=== PATIENT | male | born 1990 | race Caucasian/White ===

== ENCOUNTER 2016-10-23 13:10 | Emergency (ER) | payer OTHER ==
[2016-10-23] VITALS (11 sets, daily range): BP systolic 112–142; BP diastolic 51–75; PULSE 73–96; RESP 12–20; TEMP 98.1–98.8; O2SAT 94–96
[~2016-10-23] VITALS: Ht 167.6 cm; Wt 58.6 kg
[~2016-10-23 13:10] MED LIST: AQUACAP PO; AZIT250T3 PO; CALC600T13 PO; M2 M100C PO; NADO40TA2 PO; PRED10 PO; TACR1 PO; URSO300C2 PO; ZINC100T
[2016-10-23] MEDS ORDERED: ONDANSETRON HCL 4 MG/2 ML VIAL IVP ONE (14:00)
--- NOTE | 2016-10-23 14:11 | PD ---
HPI Chief Complaint: General Weakness Time Seen by Provider: 13:40 Travel History International Travel<30 days: No Contact w/Intl Traveler<30days: No Traveled to known affect area: No History of Present Illness HPI This patient complains of nausea. Duration 3 days. Severity is moderate. He is not having any vomiting or fever or abdominal pain. He does have extensive medical history with cystic fibrosis and had a partial colectomy 3 months ago. He has a colostomy has been functioning. He has emptied it today as usual. No alleviating factors. He does grudgingly admits to some significant anxiety and stress feelings. PFSH Past Medical History Autoimmune Disease: No Cancer: No Cystic Fibrosis: Yes Diabetes: Yes (9 YEARS) Endocrine: Yes Immune Disorder: No Psychiatric: No Reproductive: No Respiratory: Yes (DBL LUNG TRANSPLANT LAST YEAR) Sickle Cell Disease: No Past Surgical History Abdominal Surgery: Yes Cardiac Surgery: No Ear Surgery: No Endocrine Surgery: Yes (INSULIN PUMP) Eye Surgery: No Genitourinary Surgery: No Gynecologic Surgery: No Oral Surgery: Yes (WISDOM TEETH X 4) Thoracic Surgery: No Other Surgery: Yes (g tube) Social History Alcohol Use: No Tobacco Use: No Substance Use: No Allergies-Medications (Allergen,Severity, Reaction): Coded Allergies: Vancomycin (Verified Adverse Reaction, Intermediate, 05/27/16) *MDRO Multi-Drug Resistant Organism (Verified Adverse Reaction, Unknown, 05/29/16) MRSA 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 (nares) Positive 05/28/16 Reported Meds & Prescriptions Reported Meds & Active Scripts Active Reported Xifaxan (Rifaximin) 550 Mg Tab 550 Mg PO DAILY Iron (Ferrous Sulfate) 50 Mg Tab 50 Mg PO DAILY Azithromycin 250 Mg Tab 250 Mg PO DAILY Zinc (Zinc Gluconate) 100 Mg Tab Prednisone 10 Mg Tab 10 Mg PO DAILY Calcium 600 Mg Tab 600 Mg PO DAILY Magnesium 100 Mg Cap 150 Mg PO DAILY Ursodiol 300 Mg Cap 300 Mg PO BID Prograf (Tacrolimus) 1 Mg Cap 1 Mg PO HS Prograf (Tacrolimus) 1 Mg Cap 2 Mg PO DAILY Review of Systems General / Constitutional: No: Fever Eyes: No: Visual changes HENT: No: Headaches Cardiovascular: Positive: Edema, No: Chest Pain or Discomfort Respiratory: No: Shortness of Breath Gastrointestinal: Positive: Nausea, No: Abdominal Pain Genitourinary: No: Dysuria Musculoskeletal: Positive: Edema, No: Pain Skin: No Rash Neurologic: No: Weakness Psychiatric: Positive: Anxiety Endocrine: No: Polydipsia Hematologic/Lymphatic: No: Easy Bruising Physical Exam Narrative GENERAL: Well-nourished, well-developed patient in no apparent distress. SKIN: Focused skin assessment reveals no rash and nodules. Skin is Warm and dry. HEAD: Atraumatic. Normocephalic. EYES: Pupils equal and round. No scleral icterus. No injection or drainage. ENT: No nasal bleeding or discharge. Mucous membranes pink and moist. NECK: Trachea midline. No JVD. CARDIOVASCULAR: Regular rate and rhythm. No murmur appreciated. RESPIRATORY: No accessory muscle use. Clear to auscultation. Breath sounds equal bilaterally. GASTROINTESTINAL: Abdomen soft, non-tender, suggesting of mild ascites. Hepatic and splenic margins not palpable. Colostomy present and functioning. Incision shows no infection or dehiscence. MUSCULOSKELETAL: No obvious deformities. No clubbing. No cyanosis. Symmetric edema the feet and ankles, chronic per patient and family. NEUROLOGICAL: Awake and alert. No obvious cranial nerve deficits. Motor grossly within normal limits. Normal speech. PSYCHIATRIC: Anxious mood and affect; insight and judgment normal. Data Data Last Documented VS Vital Signs Date Time Temp Pulse Resp B/P Pulse Ox O2 Delivery O2 Flow Rate FiO2 10/23/16 13:33 98.4 92 16 112/58 94 Orders Ondansetron Inj (Zofran Inj) (10/23/16 14:00) Influenzae A/B Antigen (10/23/16 13:56) Complete Blood Count With Diff (10/23/16 13:56) Basic Metabolic Panel (Bmp) (10/23/16 13:56) Heparin Central Flush (Heparin Central F (10/23/16 14:00) Lorazepam (Ativan) (10/23/16 14:15) Type And Screen (10/23/16 14:51) Red Blood Cells (Rbc) (10/23/16 14:51) Blood Product Administration .UPON TRANSFUSION (10/23/16 14:51) Sodium Chlor 0.9% 250 Ml Inj (Ns 250 Ml (10/23/16 15:00) Furosemide Inj (Lasix Inj) (10/23/16 15:00) Labs Laboratory Tests Test 10/23/16 14:11 White Blood Count 3.3 TH/MM3 Red Blood Count 2.64 MIL/MM3 Hemoglobin 6.8 GM/DL Hematocrit 21.7 % Mean Corpuscular Volume 82.2 FL Mean Corpuscular Hemoglobin 25.8 PG Mean Corpuscular Hemoglobin 31.4 % Concent Red Cell Distribution Width 18.8 % Platelet Count 81 TH/MM3 Mean Platelet Volume 7.4 FL Neutrophils (%) (Auto) 72.5 % Lymphocytes (%) (Auto) 14.1 % Monocytes (%) (Auto) 9.3 % Eosinophils (%) (Auto) 3.7 % Basophils (%) (Auto) 0.4 % Neutrophils # (Auto) 2.4 TH/MM3 Lymphocytes # (Auto) 0.5 TH/MM3 Monocytes # (Auto) 0.3 TH/MM3 Eosinophils # (Auto) 0.1 TH/MM3 Basophils # (Auto) 0.0 TH/MM3 CBC Comment AUTO DIFF Differential Comment AUTO DIFF CONFIRMED Ovalocytes 1+ Keratocytes OCC Sodium Level 143 MEQ/L Potassium Level 4.6 MEQ/L Chloride Level 112 MEQ/L Carbon Dioxide Level 23.2 MEQ/L Anion Gap 8 MEQ/L Blood Urea Nitrogen 22 MG/DL Creatinine 1.90 MG/DL Estimat Glomerular Filtration 43 ML/MIN Rate Random Glucose 117 MG/DL Calcium Level 8.0 MG/DL MDM Medical Decision Making Medical Screen Exam Complete: Yes Emergency Medical Condition: Yes Medical Record Reviewed: Yes Differential Diagnosis Ileus, colitis, obstruction, anxiety Narrative Course I have reviewed the patient's electronic medical record. Reviewed his extensive hospitalization from May 2016 Port is accessed I gave him IV Zofran Gave him a dose of Ativan for anxiety CBC shows pancytopenia which is chronic. His father reports that his baseline hemoglobin since the colectomy 3 months ago has been 7.2. He is discussing with his sons specialist at [place] regarding recommendations for admission/ transfusion etc. No active bleeding. Metabolic profile shows some renal insufficiency with creatinine 1.9. That is his baseline creatinine after colectomy Reviewed his situation at length with his parents at bedside. They are a physician child and youth program assistant and nurse and have good medical knowledge. I don't have any clinical suspicion of obstruction. He has soft benign abdomen with no vomiting or tenderness. His colostomy has been functioning normally. His father spoke with the patient's guest experience captain at [facility]. He does not think admission is warranted. The patient does not want to stay. He recommended 2 units of packed red cell transfusion prior to discharge from the ER. Multiple physicians of the transplant team will be seeing him in 6 days' time at the [facility]. Patient is agreeable So he will get a unit of blood transfusion followed by 20mg IV Lasix followed by a second unit of blood. Diagnosis Primary Impression: Nausea alone Additional Impressions: Symptomatic anemia Cystic fibrosis Additional Instructions: Follow up with your transplant team as scheduled on 29 October Med/Other Pt SpecificInfo: Other Disposition: 01 DISCHARGE HOME Condition: Stable Yasir Mg MD October 23, 2016 14:10
[2016-10-23] MEDS ORDERED: LORazepam 0.5 MG TAB PO ONE (14:15)
[2016-10-23 14:21] LABS: AUTOMATED NEUTROPHIL # 2.4 TH/MM3 (1.8-7.7); BASOPHIL % 0.4 % (0.0-2.0); EOSINOPHIL # 0.1 TH/MM3 (0-0.4); EOSINOPHIL % 3.7 % (0.0-4.0); HEMATOCRIT 21.7 % (39.0-51.0); LYMPH % 14.1 % (9.0-44.0); LYMPHOCYTE # 0.5 TH/MM3 (1.0-4.8); MEAN CELL VOLUME 82.2 FL (80.0-100.0); MEAN CORPUSCULAR HEMOGLOBIN 25.8 PG (27.0-34.0); MEAN CORPUSCULAR HGB CONC 31.4 % (32.0-36.0); MONO % 9.3 % (0.0-8.0); NEUT % 72.5 % (16.0-70.0); PLATELET COUNT 81 TH/MM3 (150-450); RED BLOOD COUNT 2.64 MIL/MM3 (4.50-5.90); RED CELL DISTRIBUTION WIDTH 18.8 % (11.6-17.2); WHITE BLOOD COUNT 3.3 TH/MM3 (4.0-11.0)
[2016-10-23 14:23] LABS: HEMO FLAGS AUTO DIFF
[2016-10-23] MEDS ORDERED: XIFA550T4 PO (14:26)
[2016-10-23] MEDS ORDERED: FERR1TAB58 PO (14:26)
[2016-10-23 14:29] LABS: POTASSIUM 4.6 MEQ/L (3.5-5.1)
[2016-10-23 14:32] LABS: BICARBONATE 23.2 MEQ/L (21.0-32.0)
[2016-10-23 14:48] LABS: KERATOCYTES OCC (NORMAL); OVALOCYTES 1+ (NORMAL); SCAN/DIFF AUTO DIFF CONFIRMED
[2016-10-23] MEDS ORDERED: SODIUM CHLOR 0.9% 250 ML INJ 250 ML IV ONE (15:00)
[2016-10-23] MEDS ORDERED: FUROSEMIDE 20 MG/2 ML VIAL IV PUSH ONE (15:00)
[2016-10-24] MEDS ORDERED: diphenhydrAMINE HCL 50 MG/ML VIAL IV PUSH ONE
[2016-10-24 00:05] VITALS: BP 141/63; PULSE 86; RESP 20; TEMP 98.1; O2SAT 95
[2016-10-24 00:20] VITALS: BP 134/62; PULSE 86; RESP 20; TEMP 98.1; O2SAT 95
[2016-10-24 01:22] VITALS: BP 153/76; PULSE 91; RESP 20; TEMP 98.7; O2SAT 94
== END 2016-10-24 02:40 | disposition home or self-care (01) ==
LOC: PHED 13:10
DX: R11.0 Nausea (principal); D64.9 Anemia, unspecified; E84.9 Cystic fibrosis, unspecified
CPT/HCPCS: 36430; 80048; 85025; 86850; 86900; 86901; 86920; 87804; 96361; 96374; 96375; 99283; J1200; J1642; J1940; J2405; J7050; P9016

== ENCOUNTER → 2017-02-27 | Outpatient (CLI) | payer OTHER ==
[~2017-02-27] MED LIST changes: -AQUACAP PO; +CALC600T10 PO; +FERR1TAB58 PO; -NADO40TA2 PO; +PRED1SUS6 LEFT EYE; +VIGA0.5D LEFT EYE; +XIFA550T4 PO; +ZINC100T3 PO
== END ==
LOC: TMNT 11:00
PROVIDERS: ATTEND Internal Medicine Interventional Cardiology
DX: K74.60 Unspecified cirrhosis of liver (principal); Z71.3 Dietary counseling and surveillance; Z94.2 Lung transplant status
CPT/HCPCS: 97802

== ENCOUNTER 2017-03-20 17:16 | Emergency (ER) | payer OTHER ==
[~2017-03-20 17:16] MED LIST changes: -CALC600T13 PO; -FERR1TAB58 PO; -M2 M100C PO; -ZINC100T
[2017-03-20 17:19] VITALS: BP 132/76; PULSE 115; RESP 22; TEMP 98.6; O2SAT 94
[2017-03-20] MEDS ORDERED: SODIUM CHLORIDE 0.9% FLUSH 10 ML FLUSH IV FLUSH PRN (17:30)
[2017-03-20 17:34] VITALS: BP 152/74; PULSE 111; RESP 26; O2SAT 94
[2017-03-20 17:40] VITALS: BP 152/74; PULSE 114; RESP 28; TEMP 98.8; O2SAT 94
--- NOTE | 2017-03-20 17:54 | PD ---
HPI . Weakness Chief Complaint: General Weakness Time Seen by Provider: 17:29 Travel History International Travel<30 days: No Contact w/Intl Traveler<30days: No Traveled to known affect area: No History of Present Illness HPI This is a 26-year-old patient with a history of cystic fibrosis who is status post bilateral lung transplants who presents to us today with the chief complaint of weakness and fatigue. He has a history of anemia requiring transfusions. He states that his symptoms today are compatible with that. He has not experienced any recent known blood loss. He has had previous problems with GI blood loss but has not seen any lately. Patient also reports that he's been tachycardic today. Heart rate has been around 130. He reports a temperature at home of 100 today. No modifying factors. PFSH Past Medical History Anemia: Yes Autoimmune Disease: No Cancer: No Cystic Fibrosis: Yes Diabetes: Yes Patient Takes Glucophage: No (insulin pump ) Diminished Hearing: No Endocrine: Yes Immune Disorder: No Medical other: Yes (blood tranfusions ) Psychiatric: No Reproductive: No Respiratory: Yes (DBL LUNG TRANSPLANT LAST YEAR) Immunizations Current: No Pneumonia: Yes Sickle Cell Disease: No Tetanus Vaccination: < 5 Years Influenza Vaccination: Yes Past Surgical History Abdominal Surgery: Yes Cardiac Surgery: No Ear Surgery: No Endocrine Surgery: Yes (INSULIN PUMP) Eye Surgery: No Genitourinary Surgery: No Gynecologic Surgery: No Oral Surgery: Yes (WISDOM TEETH X 4) Thoracic Surgery: No Other Surgery: Yes (BILATERAL LUNG TRANSPLANT 2014) Social History Alcohol Use: No Tobacco Use: No Substance Use: No Allergies-Medications (Allergen,Severity, Reaction): Coded Allergies: vancomycin (Verified Adverse Reaction, Intermediate, 03/08/17) *MDRO Multi-Drug Resistant Organism (Verified Adverse Reaction, Unknown, ) MRSA PCR Screen (nares) Positive 05/28/16 Reported Meds & Prescriptions Reported Meds & Active Scripts Active Reported Zinc Gluconate 100 Mg Tab 100 Mg PO DAILY Calcium + D3 (Calcium Carbonate-Cholecalciferol) 600-200 Mg-Unit Tab 1 Tab PO DAILY Xifaxan (Rifaximin) 550 Mg Tab 550 Mg PO DAILY Prednisone 10 Mg Tab 10 Mg PO DAILY Ursodiol 300 Mg Cap 300 Mg PO BID Prograf (Tacrolimus) 1 Mg Cap 1 Mg PO HS Prograf (Tacrolimus) 1 Mg Cap 2 Mg PO DAILY Review of Systems Except as stated in HPI: all other systems reviewed are Neg General / Constitutional: Positive: Fever Cardiovascular: Positive: Other (tachycardia), No: Chest Pain or Discomfort Respiratory: No: Shortness of Breath Gastrointestinal: Positive: Diarrhea (diarrhea a few days ago), No: Nausea, Vomiting, Abdominal Pain Neurologic: Positive: Weakness Physical Exam Narrative GENERAL: Slightly built, chronically ill-appearing young man. SKIN: warm/dry. Pale. HEAD: Normocephalic. Atraumatic. EYES: Pupils equal and round. No scleral icterus. No injection or drainage. ENT: No nasal bleeding or discharge. Mucous membranes pink and moist. NECK: Trachea midline. Full range of motion without pain.. CARDIOVASCULAR: Sinus tachycardia. He does have a systolic murmur. RESPIRATORY: No accessory muscle use. Clear to auscultation. Breath sounds equal bilaterally. GASTROINTESTINAL: Ascites. Abdomen soft. Nontender. Bowel sounds present. MUSCULOSKELETAL: No obvious deformities. NEUROLOGICAL: Awake and alert. No obvious cranial nerve deficits. Motor grossly within normal limits. Normal speech. PSYCHIATRIC: Appropriate mood and affect; insight and judgment normal. Data Data Last Documented VS Vital Signs Date Time Temp Pulse Resp B/P (MAP) Pulse Ox O2 Delivery O2 Flow Rate FiO2 03/20/17 17:40 98.8 114 28 152/74 (100) 94 Room Air Orders Orders Complete Blood Count With Diff (03/20/17 17:28) Comprehensive Metabolic Panel (03/20/17 17:28) Lactic Acid (03/20/17 17:28) Prothrombin Time / Inr (Pt) (03/20/17:28) Act Partial Throm Time (Ptt) (03/20/17 17:28) Urinalysis - C+S If Indicated (03/20/17 17:28) Iv Access Insert/Monitor (03/20/17 17:28) Ecg Monitoring (03/20/17 17:28) Oximetry (03/20/17 17:28) Sodium Chloride 0.9% Flush (Ns Flush) (03/20/17 17:30) Electrocardiogram (03/20/17 17:28) Chest, Single Ap (03/20/17 17:28) Albumin (03/20/17 17:28) Ammonia (03/20/17 17:28) Type And Screen (03/20/17 17:28) Blood Culture (03/20/17 17:43) Sodium Chlor 0.9% 1000 Ml Inj (Ns 1000 M (03/20/17 18:00) Radiology Film Requests (03/20/17 ) Labs Laboratory Tests Test 03/20/17 18:10 03/20/17 18:25 [facility] Medical Decision Making Medical Screen Exam Complete: Yes Emergency Medical Condition: Yes Medical Record Reviewed: Yes (in addition to CHF, the patient has a history of diabetes and renal insufficiency.) Differential Diagnosis Differential diagnosis of weakness includes but is not limited to infection, CVA , electrolyte disturbance, renal failure, hypoglycemia, UTI, ACS, acute blood loss Narrative Course This patient is status post bilateral lung transplants and is on immunosuppression. He also has a history of previous GI bleeds, a history of anemia requiring blood transfusions, and a history of liver insufficiency. Laboratory evaluation is pending. He is followed at the [facility] in [place]. Depending on the results of his blood work, he may be discharged from here to go to [place]. His step-dad is one of the PAs here in the emergency department. He will assist the with the patient's disposition. Care is being turned over to the oncoming provider at 7 PM. [facility] Point of Care Internal Pos. & Neg. Controls: Passed Fecal Specimen Occult Blood: Positive Diagnosis Primary Impression: GI bleed Qualified Codes: K92.2 - Gastrointestinal hemorrhage, unspecified Additional Impression: Cystic fibrosis Pattie Cleaning MD Mar 20, 2017 17:54
[2017-03-20] MEDS ORDERED: SODIUM CHLOR 0.9% 1000 ML INJ 1,000 ML IV ONE (18:00)
--- NOTE | 2017-03-20 18:04 | RADRPT ---
EXAM DATE/TIME: 03/20/2017 18:01 [facility] COMPARISON: CHEST PA & LAT, May 31, 2016, 8:42. INDICATIONS : Weakness today. MEDICAL HISTORY : Cystic fibrosis, diabetes SURGICAL HISTORY : Bilateral lung transplant ENCOUNTER: Initial ACUITY: 1 day PAIN SCORE: 0/10 LOCATION: Bilateral chest FINDINGS: Bilateral basilar consolidation with small right and moderate left pleural effusions are present. No pneumothorax. Heart size within normal limits. There is a right internal jugular [id number] catheter with tip in the right atrium. CONCLUSION: Left greater than right bibasilar consolidation and pleural effusions. Sushant Riggins MD on March 20, 2017 at 18:01 Board Certified Radiologist. This report was verified electronically.
[2017-03-20 18:48] LABS: AUTOMATED NEUTROPHIL # 1.8 TH/MM3 (1.8-7.7); BASOPHIL % 0.3 % (0.0-2.0); EOSINOPHIL % 0.8 % (0.0-4.0); HEMATOCRIT 21.3 % (39.0-51.0); LYMPH % 13.4 % (9.0-44.0); LYMPHOCYTE # 0.3 TH/MM3 (1.0-4.8); MEAN CELL VOLUME 83.3 FL (80.0-100.0); MEAN CORPUSCULAR HEMOGLOBIN 27.5 PG (27.0-34.0); MEAN CORPUSCULAR HGB CONC 33.1 % (32.0-36.0); MONO % 9.7 % (0.0-8.0); NEUT % 75.8 % (16.0-70.0); PLATELET COUNT 58 TH/MM3 (150-450); RED BLOOD COUNT 2.56 MIL/MM3 (4.50-5.90); RED CELL DISTRIBUTION WIDTH 15.7 % (11.6-17.2); WHITE BLOOD COUNT 2.3 TH/MM3 (4.0-11.0)
[2017-03-20 18:51] LABS: HEMO FLAGS AUTO DIFF
[2017-03-20 19:09] LABS: ANION GAP 6 MEQ/L (5-15); AST (GOT) 41 U/L (15-37); BLOOD UREA NITROGEN 12 MG/DL (7-18); CHLORIDE 98 MEQ/L (98-107); GLOMERULAR FILTRATION RATE 90 ML/MIN (>89); POTASSIUM 3.7 MEQ/L (3.5-5.1); SODIUM (NA) 130 MEQ/L (136-145)
[2017-03-20 19:10] LABS: ALT (GPT) 36 U/L (12-78)
[2017-03-20 19:13] LABS: ALKALINE PHOSPHATASE 373 U/L (45-117); TOTAL BILIRUBIN ADULT 2.7 MG/DL (0.2-1.0)
[2017-03-20 19:15] LABS: APTT (PATIENT) 31.1 SEC (24.3-30.1); INTERNATIONAL NORMALIZED RATIO 1.4 RATIO; PROTHROMBIN TIME - PATIENT 15.4 SEC (9.8-11.6)
--- NOTE | 2017-03-20 19:33 | PD ---
Data Data Last Documented VS Vital Signs Date Time Temp Pulse Resp B/P (MAP) Pulse Ox O2 Delivery O2 Flow Rate FiO2 03/20/17 23:00 03/20/17 21:43 122 26 96 Room Air 03/20/17 19:45 97.9 Orders Orders Complete Blood Count With Diff (03/20/17 17:28) Comprehensive Metabolic Panel (03/20/17 17:28) Lactic Acid (03/20/17 17:28) Prothrombin Time / Inr (Pt) (03/20/17 17:28) Act Partial Throm Time (Ptt) (03/20/17 17:28) Iv Access Insert/Monitor (03/20/17 17:28) Ecg Monitoring (03/20/17 17:28) Oximetry (03/20/17 17:28) Sodium Chloride 0.9% Flush (Ns Flush) (03/20/17 17:30) Electrocardiogram (03/20/17 17:28) Chest, Single Ap (03/20/17 17:28) Albumin (03/20/17 17:28) Ammonia (03/20/17 17:28) Type And Screen (03/20/17 17:28) Blood Culture (03/20/17 17:43) Sodium Chlor 0.9% 1000 Ml Inj (Ns 1000 M (03/20/17 18:00) Radiology Film Requests (03/20/17 ) Pantoprazole Inj (Protonix Inj) (03/20/17 22:00) Heparin Central Flush (Heparin Central F (03/20/17 22:15) Labs Laboratory Tests Test 03/20/17 18:10 03/20/17 18:25 White Blood Count 2.3 TH/MM3 Red Blood Count 2.56 MIL/MM3 Hemoglobin 7.1 GM/DL Hematocrit 21.3 % Mean Corpuscular Volume 83.3 FL Mean Corpuscular Hemoglobin 27.5 PG Mean Corpuscular Hemoglobin Concent 33.1 % Red Cell Distribution Width 15.7 % Platelet Count 58 TH/MM3 Mean Platelet Volume 9.7 FL Neutrophils (%) (Auto) 75.8 % Lymphocytes (%) (Auto) 13.4 % Monocytes (%) (Auto) 9.7 % Eosinophils (%) (Auto) 0.8 % Basophils (%) (Auto) 0.3 % Neutrophils # (Auto) 1.8 TH/MM3 Lymphocytes # (Auto) 0.3 TH/MM3 Monocytes # (Auto) 0.2 TH/MM3 Eosinophils # (Auto) 0.0 TH/MM3 Basophils # (Auto) 0.0 TH/MM3 CBC Comment AUTO DIFF Differential Comment AUTO DIFF CONFIRMED Platelet Estimate LOW Platelet Morphology Comment NORMAL Ovalocytes 1+ Prothrombin Time 15.4 SEC Prothromb Time International Ratio 1.4 RATIO Activated Partial Thromboplast Time 31.1 SEC Blood Urea Nitrogen 12 MG/DL Creatinine 1.01 MG/DL Random Glucose 380 MG/DL Total Protein 5.2 GM/DL Albumin 1.7 GM/DL Calcium Level 7.5 MG/DL Alkaline Phosphatase 373 U/L Aspartate Amino Transf (AST/SGOT) 41 U/L Alanine Aminotransferase (ALT/SGPT) 36 U/L Total Bilirubin 2.7 MG/DL Sodium Level 130 MEQ/L Potassium Level 3.7 MEQ/L Chloride Level 98 MEQ/L Carbon Dioxide Level 26.0 MEQ/L Anion Gap 6 MEQ/L Estimat Glomerular Filtration Rate 90 ML/MIN Lactic Acid Level 1.2 mmol/L Ammonia 56 MCMOL/L [facility] Medical Record Reviewed: Yes Supervised Visit with DELMI: No Interpretation(s) Last Impressions Chest X-Ray 03/20/17 6563 Signed Impressions: Service Date/Time: Monday, March 20, 2017 18:01 - CONCLUSION: Left greater than right bibasilar consolidation and pleural effusions. Sushant Riggins MD Narrative Course During the course of the patients emergency department visit, the patients history, examination, and differential diagnosis were reviewed with the patient. The patient had IV access obtained and blood work sent for analysis. The patient's case was checked out to me by at the conclusion of her shift. Please see her complete history and physical. The patient's case is also managed by Gordon, the physician anesthetic assistant who is most familiar with this patient's care as this is his stepson. According to Gordon the patient is currently on the liver transplant list at the [facility]. He reported to me that the patient does require admission, the patient will require transfer. He reports that he does not want the patient to be transferred by ambulance. He prefers to drive the patient himself. The patient was initially provided normal saline 1 L IV fluid bolus. The patient was given Protonix 40 mg IV. The patients laboratory studies were reviewed and remarkable for a white count of 2.3, hemoglobin 7.1 which is compared to his last hemoglobin at this facility of 0.5 on January 12, 2017, platelets are 58 which is similar to prior levels of thrombocytopenia, neutrophils are 75.8, monocytes 9.7, CMP is remarkable for a sodium of 1:30, glucose 380, calcium 7.5, total bilirubin 2.7, AST 41, alkaline phosphatase 373, ammonia level is 56 which is also similar to his prior levels given his history of liver disease. His lactic acid is 1.2. PT 15.4, INR 1.4, PTT 31.1 Radiology studies were reviewed and remarkable for a chest x-ray that shows a left greater than right bibasilar consolidation and pleural effusions. The patient according to Gordon has chronic persistent bilateral lower infiltrates. The patient denies having any increased cough or congestion. A call was placed out to the [facility] regarding this patient's case. Gordon spoke to the patient's physician at that facility, . He did agree that the patient should be seen at their facility. A lengthy discussion was had between francheska luna and regarding how to transfer the patient. Tesfaye explained that he would like to take the patient by private vehicle. The physician at the [facility] was agreeable with the patient being discharged from this facility to be transferred by private vehicle to that facility for continued evaluation and treatment after all the laboratory studies and current physical findings and I will signs were reviewed with his physician as the patient at this point does appear to be stable given his comorbid medical conditions. The patient will be discharged for transport by his caregiver to the [facility]. Diagnosis Primary Impression: GI bleed Qualified Codes: K92.2 - Gastrointestinal hemorrhage, unspecified Additional Impressions: Cystic fibrosis Chronic liver disease Thrombocytopenia Referrals: Primary Care Physician 1 day Patient Instructions: General Instructions Med/Other Pt SpecificInfo: No Change to Meds Disposition: 70 TRANSFER TO OTHER FACILITY (To [facility]) Condition: Stable Karla Mathew MD Mar 20, 2017 19:33
[2017-03-20 19:34] LABS: OVALOCYTES 1+ (NORMAL); PLATELET ESTIMATE SMEAR LOW (NORMAL); PLATELET MORPHOLOGY NORMAL (NORMAL); SCAN/DIFF AUTO DIFF CONFIRMED
[2017-03-20 19:45] VITALS: BP 130/61; PULSE 113; RESP 18; TEMP 97.9; O2SAT 94
[2017-03-20 21:43] VITALS: BP 139/67; PULSE 122; RESP 26; O2SAT 96
[2017-03-20] MEDS ORDERED: PANTOPRAZOLE SODIUM 40 MG VIAL IV PUSH ONE (22:00)
--- NOTE | 2017-03-21 07:44 | EKG ---
Date Performed: 03/20/2017 Time Performed: 18:49:43 PTAGE: 26 years EKG: SINUS TACHYCARDIA ABNORMAL RHYTHM ECG NO PREVIOUS TRACING DOCTOR: María Macdonald Interpretating Date/Time 03/21/2017 07:42:22
== END 2017-03-20 23:53 | disposition short-term general hospital (02) ==
LOC: NEPC 17:16
DX: K92.2 Gastrointestinal hemorrhage, unspecified (principal); E84.9 Cystic fibrosis, unspecified; K76.89 Other specified diseases of liver; D69.6 Thrombocytopenia, unspecified; R00.0 Tachycardia, unspecified; R01.1 Cardiac murmur, unspecified; R18.8 Other ascites; E11.9 Type 2 diabetes mellitus without complications; I50.9 Heart failure, unspecified
CPT/HCPCS: 71010; 80053; 82140; 83605; 85025; 85610; 85730; 86850; 86900; 86901; 87040; 93005; 96361; 96374; 99285; C9113; J1642; J7030

== ENCOUNTER 2017-07-14 05:19 | Emergency (ER) | payer OTHER ==
[2017-07-14] MEDS ORDERED: SODIUM CHLORIDE 0.9% FLUSH 10 ML FLUSH IV FLUSH (05:30)
[2017-07-14] MEDS: LORazepam 2 MG/ML VIAL IV PUSH (05:43)
[2017-07-14 05:52] LABS: AUTOMATED NEUTROPHIL # 3.2 TH/MM3 (1.8-7.7); BASOPHIL % 0.5 % (0.0-2.0); EOSINOPHIL % 1.1 % (0.0-4.0); HEMATOCRIT 22.9 % (39.0-51.0); HEMOGLOBIN 7.4 GM/DL (13.0-17.0); LYMPH % 12.7 % (9.0-44.0); LYMPHOCYTE # 0.5 TH/MM3 (1.0-4.8); MEAN CELL VOLUME 87.1 FL (80.0-100.0); MEAN CORPUSCULAR HEMOGLOBIN 28.1 PG (27.0-34.0); MEAN CORPUSCULAR HGB CONC 32.3 % (32.0-36.0); MONO % 10.9 % (0.0-8.0); MONOCYTE # 0.5 TH/MM3 (0-0.9); NEUT % 74.8 % (16.0-70.0); PLATELET COUNT 76 TH/MM3 (150-450); RED BLOOD COUNT 2.63 MIL/MM3 (4.50-5.90); RED CELL DISTRIBUTION WIDTH 16.8 % (11.6-17.2); WHITE BLOOD COUNT 4.2 TH/MM3 (4.0-11.0)
[2017-07-14 05:59] LABS: HEMO FLAGS AUTO DIFF
[2017-07-14 06:01] LABS: AMMONIA 107 MCMOL/L (11-32)
[2017-07-14 06:03] LABS: ALBUMIN 1.4 GM/DL (3.4-5.0); ALT (GPT) 30 U/L (12-78); ANION GAP 7 MEQ/L (5-15); AST (GOT) 35 U/L (15-37); BLOOD UREA NITROGEN 39 MG/DL (7-18); CALCIUM 7.2 MG/DL (8.5-10.1); CHLORIDE 102 MEQ/L (98-107); CREATININE 2.18 MG/DL (0.60-1.30); GLOMERULAR FILTRATION RATE 37 ML/MIN (>89); GLUCOSE,RANDOM 142 MG/DL (74-106); POTASSIUM 4.8 MEQ/L (3.5-5.1); SODIUM (NA) 136 MEQ/L (136-145)
[2017-07-14 06:05] LABS: ALKALINE PHOSPHATASE 364 U/L (45-117); CALCIUM-PROTEIN CORRECTED 8.1 MG/DL (8.5-10.1); TOTAL BILIRUBIN ADULT 1.4 MG/DL (0.2-1.0); TOTAL PROTEIN 5.4 GM/DL (6.4-8.2)
[2017-07-14] MEDS: FUROSEMIDE 20 MG/2 ML VIAL IV PUSH (06:41)
[2017-07-14 06:45] LABS: BACTERIA, URINE RARE /hpf; BILIRUBIN, URINE NEG (NEG); BLOOD, URINE NEG (NEG); GLUCOSE,URINE NEG (NEG); KETONE, URINE TRACE mg/dL (NEG); MUCUS URINE FEW /lpf (OCC); NITRITE,URINE NEG (NEG); URINE COLOR YELLOW (YELLW/STRAW); URINE LEUKOCYTE ESTERASE NEG (NEG)
[2017-07-14] MEDS: RESP: LIDOCAINE HCL 4% PF 5 ML NEB NEB (06:45)
[2017-07-14 06:46] LABS: COMMENT (UR) CATH-CULTURE IND; CULTURE IF INDICATED CATH CULTURE IND
[2017-07-14 07:08] LABS: PLATELET ESTIMATE SMEAR LOW (NORMAL); PLATELET MORPHOLOGY NORMAL (NORMAL); SCAN/DIFF AUTO DIFF CONFIRMED
[2017-07-14 07:09] LABS: ACANTHOCYTES OCC (NORMAL); OVALOCYTES 1+ (NORMAL)
[2017-07-14 09:17] LABS: APTT (PATIENT) 23.8 SEC (24.3-30.1); INTERNATIONAL NORMALIZED RATIO 1.4 RATIO; PROTHROMBIN TIME - PATIENT 14.2 SEC (9.8-11.6)
[2017-07-14] MEDS: LACTULOSE SYRUP 20 GM/30 ML CUP NG (09:45)
== END 2017-07-14 13:49 | disposition short-term general hospital (02) ==
LOC: NEPE 05:19 → NEDA 06:36 → NEPE 13:49
DX: K72.90 Hepatic failure, unspecified without coma (principal); R41.82 Altered mental status, unspecified; R11.2 Nausea with vomiting, unspecified; I51.7 Cardiomegaly; J90 Pleural effusion, not elsewhere classified; E84.9 Cystic fibrosis, unspecified; K74.60 Unspecified cirrhosis of liver; D64.9 Anemia, unspecified; Z94.2 Lung transplant status
CPT/HCPCS: 71045; 80053; 81001; 82140; 83605; 85025; 85610; 85730; 87040; 87086; 94664; 96374; 96375; 99285-25

== ENCOUNTER 2017-09-01 08:38 | Inpatient (IN) | payer OTHER ==
[2017-09-01] VITALS (7 sets, daily range): BP systolic 123–135; BP diastolic 56–87; PULSE 91–109; RESP 18–23; TEMP 97.3–98.7; O2SAT 94–99
[~2017-09-01] VITALS: Ht 170.2 cm; Wt 65.1 kg
[~2017-09-01 08:38] MED LIST changes: -AZIT250T3 PO; -CALC600T10 PO; +CREON24 PO; +FURO40TA PO; +LEXA5TAB PO; +MYCO500 PO; +NOVOLOGP2 SQ; +PANC3600 PO; -PRED1SUS6 LEFT EYE; +PROT40TA PO; -TACR1 PO; -VIGA0.5D LEFT EYE; +VITA500012 PO
[2017-09-01] MEDS ORDERED: LACT10SO PO (08:47)
[2017-09-01] MEDS ORDERED: ONDANSETRON HCL 4 MG/2 ML VIAL IVP ONE (09:00)
[2017-09-01] MEDS ORDERED: SODIUM CHLOR 0.9% 1000 ML INJ 1,000 ML IV SCH (09:00)
[2017-09-01] MEDS ORDERED: SODIUM CHLORIDE 0.9% FLUSH 10 ML FLUSH IV FLUSH PRN ×2 (09:00→12:00)
[2017-09-01] MEDS ORDERED: HYDROmorphone HCL PF 1 MG/ML VIAL IVS ONE (09:00)
[2017-09-01] MEDS ORDERED: HYDROmorphone HCL PF 0.5 MG/0.5 ML SYRINGE ONE (09:01)
--- NOTE | 2017-09-01 09:17 | PD ---
HPI Chief Complaint: Abdominal Pain Time Seen by Provider: 08:42 Travel History International Travel<30 days: No Contact w/Intl Traveler<30days: No Traveled to known affect area: No History of Present Illness HPI The patient is a 26-year-old male who presents emergency department via private vehicle with family for increasing abdominal pain, distention, decreased ileostomy output. The patient has a history of cystic fibrosis, underwent double lung transplant, is currently in evaluation for possible liver transplant for liver failure. The patient has a history of recent low albumin, low platelets, and elevated ammonia levels. The patient was slightly confused last night, had multiple doses of lactulose, but continues to have poor ileostomy output. The patient has had multiple abdominal surgeries in the past. Symptoms are moderate. There are no current alleviating factors. No associated fever. The patient does have a history of chronic right pleural effusions, has a chronic indwelling drain, the mother drained 1000 cc of the fluid this morning. PFSH Past Medical History Anemia: Yes Autoimmune Disease: No Cancer: No Cystic Fibrosis: Yes Diabetes: Yes Patient Takes Glucophage: No Diminished Hearing: No Endocrine: Yes Immune Disorder: No Implanted Vascular Access Dvce: Yes (port ) Psychiatric: No Reproductive: No Respiratory: Yes (DBL LUNG TRANSPLANT LAST YEAR) Immunizations Current: No Pneumonia: Yes Renal Failure: Yes (stage 3 ) Sickle Cell Disease: No Past Surgical History Abdominal Surgery: Yes Cardiac Surgery: No Ear Surgery: No Endocrine Surgery: Yes (INSULIN PUMP) Eye Surgery: No Genitourinary Surgery: No Gynecologic Surgery: No Oral Surgery: Yes (WISDOM TEETH X 4) Thoracic Surgery: No Other Surgery: Yes (BILATERAL LUNG TRANSPLANT 2014) Social History Alcohol Use: No Tobacco Use: No Substance Use: No Allergies-Medications (Allergen,Severity, Reaction): Coded Allergies: vancomycin (Verified Adverse Reaction, Intermediate, 07/14/17) *MDRO Multi-Drug Resistant Organism (Verified Adverse Reaction, Unknown, ) 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 Xifaxan (Rifaximin) 550 Mg Tab 550 Mg PO Q12HR Lexapro (Escitalopram Oxalate) 5 Mg Tab 5 Mg PO DAILY Cellcept (Mycophenolate Mofetil) 500 Mg Tab 500 Mg PO BID Ursodiol 300 Mg Cap 300 Mg PO BID Protonix (Pantoprazole Sodium) 40 Mg Tab 40 Mg PO BID Creon (Amylase/Lipase/Protease) 24,000-76,000-120,000 Units Cap 1 Cap PO TIDPC Creon (Pancrelipase) 36,000-114,000-180,000 Units Cap 1 Cap PO TIDPC Ergocalciferol 50,000 Unit Cap 50,000 Units PO Q7D Furosemide 40 Mg Tab 40 Mg PO DAILY Prednisone 10 Mg Tab 10 Mg PO DAILY Review of Systems Except as stated in HPI: all other systems reviewed are Neg General / Constitutional: No: Fever Cardiovascular: No: Chest Pain or Discomfort Respiratory: No: Shortness of Breath Gastrointestinal: Positive: Nausea, Abdominal Pain, Other (as noted in history of present illness), No: Vomiting, Diarrhea Musculoskeletal: Positive: Edema Physical Exam Narrative GENERAL: Awake, alert, 26-year-old male who appears his stated age and is in no acute respiratory distress. SKIN: Focused skin assessment warm/dry. HEAD: Atraumatic. Normocephalic. EYES: Pupils equal and round. No scleral icterus. No injection or drainage. ENT: Dry blood along the lips and upper and lower gumline. NECK: Trachea midline. No JVD. CARDIOVASCULAR: Regular rate and rhythm. No murmur appreciated. Heart rate in the 90s. Well-healed scar right lateral chest wall. RESPIRATORY: No accessory muscle use. Diminished breath sounds right base. Drained noted in the right chest wall. GASTROINTESTINAL: Abdomen distended, tympanic. Well-healed scar. Ileostomy with small amount of formed stool and some liquid. MUSCULOSKELETAL: Clubbing noted of the upper and lower nailbeds.. NEUROLOGICAL: Awake and alert. No obvious cranial nerve deficits. Motor grossly within normal limits. Normal speech. Follows simple commands. PSYCHIATRIC: Appropriate mood and affect; insight and judgment normal. Data Data Last Documented VS Vital Signs Date Time Temp Pulse Resp B/P (MAP) Pulse Ox O2 Delivery O2 Flow Rate FiO2 09/01/17 09:20 (79) Room Air 09/01/17 08:47 98.7 91 18 98 Orders Orders Complete Blood Count With Diff (09/01/17 08:53) Comprehensive Metabolic Panel (09/01/17 08:53) Lipase (09/01/17 08:53) Lactic Acid (09/01/17 08:53) Urinalysis - C+S If Indicated (09/01/17 08:53) Ct Abd/Pel W/O Iv Contrast (09/01/17 08:53) Iv Access Insert/Monitor (09/01/17 08:53) Ecg Monitoring (09/01/17 08:53) Oximetry (09/01/17 08:53) Ondansetron Inj (Zofran Inj) (09/01/17 09:00) Sodium Chloride 0.9% Flush (Ns Flush) (09/01/17 09:00) Hydromorphone Pf Inj (Dilaudid Pf Inj) (09/01/17 09:00) Ammonia (09/01/17 08:53) Sodium Chlor 0.9% 1000 Ml Inj (Ns 1000 M (09/01/17 09:00) Hydromorphone Pf Inj (Dilaudid Pf Inj) (09/01/17 09:01) Potassium, Serum (K) (09/01/17 13:41) Ecg Monitoring (09/01/17 10:41) Insulin Human Regular Inj (Novolin R Inj (09/01/17 11:00) Dextrose 50% In Tiny (Vial) Inj (D50w (Vi (09/01/17 10:45) Sodium Bicarbonate 8.4% Inj (Sodium Bica (09/01/17 10:45) Ondansetron Inj (Zofran Inj) (09/01/17 11:45) Hydromorphone Pf Inj (Dilaudid Pf Inj) (09/01/17 11:45) Consult Gastroenterology (09/01/17 ) Admit Order (Ed Use Only) (09/01/17 11:51) Labs Laboratory Tests Test 09/01/17 09:10 White Blood Count 8.7 TH/MM3 Red Blood Count 2.41 MIL/MM3 Hemoglobin 6.9 GM/DL Hematocrit 20.8 % Mean Corpuscular Volume 86.1 FL Mean Corpuscular Hemoglobin 28.6 PG Mean Corpuscular Hemoglobin Concent 33.2 % Red Cell Distribution Width 18.3 % Platelet Count 102 TH/MM3 Mean Platelet Volume 8.1 FL Neutrophils (%) (Auto) 81.9 % Lymphocytes (%) (Auto) 9.2 % Monocytes (%) (Auto) 7.9 % Eosinophils (%) (Auto) 0.9 % Basophils (%) (Auto) 0.1 % Neutrophils # (Auto) 7.1 TH/MM3 Lymphocytes # (Auto) 0.8 TH/MM3 Monocytes # (Auto) 0.7 TH/MM3 Eosinophils # (Auto) 0.1 TH/MM3 Basophils # (Auto) 0.0 TH/MM3 CBC Comment DIFF FINAL Differential Comment Blood Urea Nitrogen 43 MG/DL Creatinine 3.08 MG/DL Random Glucose 178 MG/DL Total Protein 4.8 GM/DL Albumin 1.6 GM/DL Calcium Level 7.3 MG/DL Alkaline Phosphatase 274 U/L Aspartate Amino Transf (AST/SGOT) 36 U/L Alanine Aminotransferase (ALT/SGPT) 38 U/L Total Bilirubin 1.4 MG/DL Sodium Level 138 MEQ/L Potassium Level 6.5 MEQ/L Chloride Level 109 MEQ/L Carbon Dioxide Level 19.9 MEQ/L Anion Gap 9 MEQ/L Estimat Glomerular Filtration Rate 25 ML/MIN Lactic Acid Level 1.3 mmol/L Protein Corrected Calcium 8.6 MG/DL Ammonia 243 MCMOL/L Lipase 36 U/L MDM Medical Decision Making Medical Screen Exam Complete: Yes Emergency Medical Condition: Yes Medical Record Reviewed: Yes Interpretation(s) Last Impressions Abdomen/Pelvis CT 09/01/17 0853 Signed Impressions: Service Date/Time: Friday, September 01, 2017 09:39 - CONCLUSION: 1. Obstructive gas pattern with marked dilatation of the stomach and small bowel. 2. Air and fecal appearing debris throughout the mid to distal small bowel. Distention may be due to impaction since an acute transition point is not identified. 3. Cirrhotic appearing liver with evidence of prior portal venous shunt. 4. Pancreatic calcifications. 5. Bilateral pleural effusions and bibasilar airspace disease. 6. Right-sided chest tube. Adin Peguero MD Laboratory Tests Test 09/01/17 09:10 White Blood Count 8.7 TH/MM3 Red Blood Count 2.41 MIL/MM3 Hemoglobin 6.9 GM/DL Hematocrit 20.8 % Mean Corpuscular Volume 86.1 FL Mean Corpuscular Hemoglobin 28.6 PG Mean Corpuscular Hemoglobin Concent 33.2 % Red Cell Distribution Width 18.3 % Platelet Count 102 TH/MM3 Mean Platelet Volume 8.1 FL Neutrophils (%) (Auto) 81.9 % Lymphocytes (%) (Auto) 9.2 % Monocytes (%) (Auto) 7.9 % Eosinophils (%) (Auto) 0.9 % Basophils (%) (Auto) 0.1 % Neutrophils # (Auto) 7.1 TH/MM3 Lymphocytes # (Auto) 0.8 TH/MM3 Monocytes # (Auto) 0.7 TH/MM3 Eosinophils # (Auto) 0.1 TH/MM3 Basophils # (Auto) 0.0 TH/MM3 CBC Comment DIFF FINAL Differential Comment Blood Urea Nitrogen 43 MG/DL Creatinine 3.08 MG/DL Random Glucose 178 MG/DL Total Protein 4.8 GM/DL Albumin 1.6 GM/DL Calcium Level 7.3 MG/DL Alkaline Phosphatase 274 U/L Aspartate Amino Transf (AST/SGOT) 36 U/L Alanine Aminotransferase (ALT/SGPT) 38 U/L Total Bilirubin 1.4 MG/DL Sodium Level 138 MEQ/L Potassium Level 6.5 MEQ/L Chloride Level 109 MEQ/L Carbon Dioxide Level 19.9 MEQ/L Anion Gap 9 MEQ/L Estimat Glomerular Filtration Rate 25 ML/MIN Lactic Acid Level 1.3 mmol/L Protein Corrected Calcium 8.6 MG/DL Ammonia 243 MCMOL/L Lipase 36 U/L Differential Diagnosis Differential diagnosis includes ileus, partial small bowel obstruction, small bowel obstruction, dehydration, acute kidney injury, electrolyte abnormality, volvulus. Narrative Course The patient's port was accessed. Labs are drawn and sent. The patient was placed on cardiac telemetry monitoring and continuous pulse oximetry monitoring. Noncontrast CT the abdomen and pelvis was performed to evaluate for obstruction versus ileus. The patient was placed on maintenance IV fluids, but not administered bolus secondary to lower extremity edema and history of hypoalbuminemia. The patient was administered Dilaudid and Zofran for pain. CT of the abdomen and pelvis reveals obstructive pattern, may be from fecal impaction. The patient's creatinine is elevated greater than 3, patient does have a history of CK 80, however, creatinine is 3 is elevated. Potassium is elevated 6.5, no evidence of hemolysis. The patient appears to have hyperkalemia with acute kidney injury, most likely secondary to dehydration. However, the patient has low albumin level and is known to have significant edema when large amounts of IV fluids are administered. Therefore, maintenance IV fluids were maintained. The patient's ammonia level was elevated at 243. The patient will require admission, may benefit from intensive care unit initially secondary to multiple comorbidities. Therefore, the on-call human resources director was paged for admission. I discussed the findings with the mother at bedside. I discussed the patient with the on-call human resources director, Dr. Ceballos, who agrees with admission. Critical Care Narrative Aggregate critical care time was 35 minutes. Time to perform other separately billable procedures was not included in the critical care time. My time did not include minutes spent treating any other patients simultaneously or on activities that did not directly contribute to the patient's treatment. The services I provided to this patient were to treat and/or prevent clinically significant deterioration that could result in: Arrhythmia, acute renal failure , bowel perforation. I provided critical care services requiring my management, as noted below: Chart data review, documentation time, medication orders and management, vital sign assessments/reviewing monitor data, ordering and reviewing lab tests, ordering and interpreting/reviewing x-rays and diagnostic studies, care of the patient and discussion of the patient with the admitting physicians. Physician Communication Physician Communication The on-call human resources director was paged for admission. I discussed the patient with Dr. Ceballos who agrees with admission. Diagnosis Primary Impression: Bowel obstruction Qualified Codes: K56.609 - Unspecified intestinal obstruction, unspecified as to partial versus complete obstruction Additional Impressions: Hyperkalemia Acute kidney injury Hyperammonemia Dehydration Admitting Information Admitting Physician Requests: Admit Condition: Stable Diogo Evans MD Sep 01, 2017 09:17
[2017-09-01 09:27] LABS: AUTOMATED NEUTROPHIL # 7.1 TH/MM3 (1.8-7.7); BASOPHIL % 0.1 % (0.0-2.0); EOSINOPHIL # 0.1 TH/MM3 (0-0.4); EOSINOPHIL % 0.9 % (0.0-4.0); LYMPH % 9.2 % (9.0-44.0); LYMPHOCYTE # 0.8 TH/MM3 (1.0-4.8); MEAN CELL VOLUME 86.1 FL (80.0-100.0); MEAN CORPUSCULAR HEMOGLOBIN 28.6 PG (27.0-34.0); MEAN CORPUSCULAR HGB CONC 33.2 % (32.0-36.0); MEAN PLATELET VOLUME 8.1 FL (7.0-11.0); MONO % 7.9 % (0.0-8.0); MONOCYTE # 0.7 TH/MM3 (0-0.9); NEUT % 81.9 % (16.0-70.0); PLATELET COUNT 102 TH/MM3 (150-450); RED BLOOD COUNT 2.41 MIL/MM3 (4.50-5.90); RED CELL DISTRIBUTION WIDTH 18.3 % (11.6-17.2); WHITE BLOOD COUNT 8.7 TH/MM3 (4.0-11.0)
[2017-09-01 09:39] LABS: HEMATOCRIT 20.8 % (39.0-51.0); HEMOGLOBIN 6.9 GM/DL (13.0-17.0)
--- NOTE | 2017-09-01 10:14 | RADRPT ---
EXAM DATE/TIME: 09/01/2017 09:39 [facility] COMPARISON: No previous studies available for comparison. INDICATIONS : Diffuse abdomen pain and decreased output from stoma. ORAL CONTRAST: No oral contrast ingested. RADIATION DOSE: 8.30 CTDIvol (mGy) MEDICAL HISTORY : diabetes, cystic fibrosis SURGICAL HISTORY : bilateral lung transplant ENCOUNTER: Initial ACUITY: 1 day PAIN SCALE: Non-responsive LOCATION: Bilateral abdomen TECHNIQUE: Volumetric scanning of the abdomen and pelvis was performed. Using automated exposure control and ad justment of the mA and/or kV according to patient size, radiation dose was kept as low as reasonably achievable to obtain optimal diagnostic quality images. DICOM format image data is available electro nically for review and comparison. FINDINGS: LOWER LUNGS: Bilateral pleural effusions are noted. Small bore tracheostomy tube is identified in the right preparator ior costophrenic sulcus. A moderate-sized left pleural effusion is noted. Bibasilar airspace disease is identified in both lower lobes. LIVER: Chronic liver changes are noted. There is diffuse nodularity characteristic of cirrhosis. Endovascula r stent is noted from portal venous shunting. SPLEEN: Normal size without lesion. PANCREAS: Calcifications are identified within the pancreas. KIDNEYS: Normal in size and shape. There is no mass, stone, or hydronephrosis. ADRENAL GLANDS: Within normal limits. VASCULAR: There is no aortic aneurysm. BOWEL/MESENTERY: An obstructive gas pattern is noted. The stomach is markedly dilated with fluid. Proximal small bowel distention is identified predominantly involving the jejunum. Her is visualization of the contents w ithin the small bowel which contains fecal. Debris with air. A discrete transition zone is not identi fied. The colon is collapsed. Right lower quadrant ileostomy is identified. ABDOMINAL WALL: Within normal limits. RETROPERITONEUM: There is no lymphadenopathy. BLADDER: No wall thickening or mass. REPRODUCTIVE: Within normal limits. INGUINAL: There is no lymphadenopathy or hernia. MUSCULOSKELETAL: Within normal limits for patient age. CONCLUSION: 1. Obstructive gas pattern with marked dilatation of the stomach and small bowel. 2. Air and fecal appearing debris throughout the mid to distal small bowel. Distention may be due to impaction since an acute transition point is not identified. 3. Cirrhotic appearing liver with evidence of prior portal venous shunt. 4. Pancreatic calcifications. 5. Bilateral pleural effusions and bibasilar airspace disease. 6. Right-sided chest tube. Adin Peguero MD on September 01, 2017 at 10:03 Board Certified Radiologist. This report was verified electronically.
[2017-09-01 10:27] LABS: ALBUMIN 1.6 GM/DL (3.4-5.0); BICARBONATE 19.9 MEQ/L (21.0-32.0); CALCIUM 7.3 MG/DL (8.5-10.1); CALCIUM-PROTEIN CORRECTED 8.6 MG/DL (8.5-10.1); CREATININE 3.08 MG/DL (0.60-1.30); TOTAL BILIRUBIN ADULT 1.4 MG/DL (0.2-1.0); TOTAL PROTEIN 4.8 GM/DL (6.4-8.2)
[2017-09-01] MEDS ORDERED: DEXTROSE 50% IN WATER 50 ML VIAL(D50) IV PUSH ONE ×2 (10:45→17:15)
[2017-09-01] MEDS ORDERED: SODIUM BICARBONATE 8.4% SOLN 50 MEQ/50 ML VIAL SLOW IVP ONE ×2 (10:45→17:15)
[2017-09-01] MEDS ORDERED: INSULIN HUMAN REGULAR 1,000 UNITS/10 ML VIAL IV PUSH ONE ×2 (11:00→17:15)
[2017-09-01] MEDS ORDERED: ONDANSETRON HCL 4 MG/2 ML VIAL IV PUSH ONE (11:45)
[2017-09-01] MEDS ORDERED: HYDROmorphone HCL PF 1 MG/ML VIAL IV PUSH ONE (11:45)
[2017-09-01] MEDS: SODIUM CHLOR 0.9% 1000 ML INJ 1,000 ML IV SCH ×2 (11:52→23:47)
[2017-09-01] MEDS ORDERED: SENNOSIDES 8.6 MG TAB PO PRN (12:00)
[2017-09-01] MEDS ORDERED: CHLORHEXIDINE GLUCONATE 2 % 1 PACK (2 CLOTHS) TOP PRN (12:00)
[2017-09-01] MEDS ORDERED: BISACODYL 10 MG SUPP RECTAL PRN (12:00)
[2017-09-01] MEDS ORDERED: LACTULOSE SYRUP 20 GM/30 ML CUP PO PRN (12:00)
[2017-09-01] MEDS ORDERED: ONDANSETRON HCL 4 MG/2 ML VIAL IV PUSH PRN (12:00)
[2017-09-01] MEDS ORDERED: MISCELLANEOUS NURSING INFORMATION XX SCH (12:00)
[2017-09-01] MEDS ORDERED: MAGNESIUM HYDROXIDE SUSP 30 ML CUP PO PRN (12:00)
[2017-09-01] MEDS ORDERED: RESP: ALBUTEROL 2.5 MG/3 ML NEB (PRN) INH (12:00)
[2017-09-01] MEDS ORDERED: ONDANSETRON HCL 4 MG/2 ML VIAL ONE ×2 (12:29→12:34)
[2017-09-01] MEDS ORDERED: HYDROmorphone HCL PF 2 MG/ML VIAL ONE ×2 (12:29→12:34)
--- NOTE | 2017-09-01 12:59 | HHI.HP ---
[facility] Service Critical Care Medicine Primary Care Physician Mando Fuentes MD Admission Diagnosis bowel obstruction with fecal impaction, hyperkalemia, ENOCH, dehydrati Diagnosis: (1) Bowel obstruction Diagnosis: Principal (2) Chronic kidney disease (CKD), stage III (moderate) Diagnosis: Secondary (3) Gastroesophageal reflux disease Diagnosis: Secondary (4) Pancreatic insufficiency due to cystic fibrosis Diagnosis: Principal (5) Cirrhosis Diagnosis: Principal (6) Depression Diagnosis: Secondary (7) Pleural drain in place Diagnosis: Principal (8) Ileostomy, has currently Diagnosis: Principal (9) Port-a-cath in place Diagnosis: Principal (10) S/P TIPS (transjugular intrahepatic portosystemic shunt) Diagnosis: Principal (11) History of lung transplant Diagnosis: Principal (12) Thrombocytopenia Diagnosis: Principal (13) Hypoalbuminemia Diagnosis: Principal (14) Small bowel obstruction Diagnosis: Principal (15) Acute kidney injury Diagnosis: Principal (16) Hyperammonemia Diagnosis: Principal (17) Cystic fibrosis Diagnosis: Principal (18) Immunosuppressed status Diagnosis: Principal (19) DM (diabetes mellitus) Diagnosis: Principal Chief Complaint: Abdominal pain/lethargy Travel History International Travel<30 Days: No Contact w/Intl Traveler <30 Da: No Traveled to Known Affected Are: No History of Present Illness This is a 26-year-old male. Date of admission 09/01/2017. Past medical history includes cystic fibrosis, diabetes mellitus on insulin pump, end -stage liver disease on transplant with a male, portal hypertension with a history of TIPS, hepatic encephalopathy on rifaximin and lactulose chronically with a history of double lung lung transplant and history of ileostomy June 2016 at [facility] in [place]. He also has a history of a Pleurx catheter right- sided for chronic pleural effusion. Patient presents to [facility] with family with 12 hour history of acute increasing abdominal pain, distention, decreased ileostomy output. The patient was slightly confused last night, had multiple doses of lactulose, but continues to have poor ileostomy output. The patient has had multiple abdominal surgeries in the past including for intestinal atresia at in [place] and a recent ileostomy in June 2016 at [facility] in [place].. There are no current alleviating factors. No associated fever. The patient does have a history of chronic right pleural effusions, has a chronic Pleurx catheter drain ~ 1000 cc of the fluid this morning. Workup included baseline laboratories. White blood cell count within normal limits. Hemoglobin 7. Potassium was 6.5 which received D50/insulin and bicarbonate with recheck pending. Ammonia levels 243. Creatinine 3.1 which is above his baseline. Patient received normal saline infusion and a CT was performed of the abdomen/pelvis revealed gastric distention/fluid with appears to be fecal impaction versus obstruction in the small bowel with dilatation duodenum/jejunum. No transition zone. Collapsed colon distal. Right lower quadrant ileostomy site. Pancreatic calcification which are chronic with moderate bilateral pleural effusions. Review of Systems Constitutional: COMPLAINS OF: Fatigue, Weight gain, DENIES: Fever, Weight loss Endocrine: DENIES: Polyuria, Polyphagia Eyes: DENIES: Blurred vision Ears, nose, mouth, throat: DENIES: Tinnitus, Running Nose Respiratory: DENIES: Cough, Hemoptysis, Sputum production Cardiovascular: DENIES: Chest pain Gastrointestinal: COMPLAINS OF: Abdominal pain, Nausea, Difficulty Swallowing, DENIES: Constipation, Vomiting Genitourinary: DENIES: Urgency Musculoskeletal: DENIES: Joint pain, Muscle aches Integumentary: DENIES: Abnormal pigmentation Hematologic/lymphatic: DENIES: Bruising Immunologic/allergic: DENIES: Urticaria Neurologic: DENIES: Abnormal gait, Headache, Localized weakness Psychiatric: COMPLAINS OF: Confusion, DENIES: Anxiety, Depression Past Family Social History Allergies: Coded Allergies: vancomycin (Verified Adverse Reaction, Intermediate, 07/14/17) *MDRO Multi-Drug Resistant Organism (Verified Adverse Reaction, Unknown, ) MRSA PCR Screen (nares) Positive 05/28/16 Past Medical History History of liver cirrhosis Cystic fibrosis Pancreatic insufficiency Diabetes mellitus Hypertension/pulmonary History depression Chronic kidney disease stage IIIa Hyperammonia Gastroesophageal reflux disease Osteoporosis Recurrent pleural effusions Past Surgical History History of double lung transplant TIPS Right Gkfxii-k-Uxgg Insulin pump History of G-tube since removed Reported Medications Rifaximin 550 mg p.o. twice daily Escitalopram 5 mg p.o. daily Lactulose 30 cc 3 times daily Furosemide 40 mg p.o. daily Ursodiol 300 mg p.o. twice daily Pancrease [id number] 3 times daily Pancrease [id number] 3 times daily Pantoprazole 40 mg p.o. twice daily Prednisone 10 mg p.o. daily Ergocalciferol 50,000 units q. 7 days Mycophenolate 500 mg p.o. twice daily Active Ordered Medications Reviewed in EMR Family History Mother/father in good health Social History No tobacco, alcohol or IV drug use Physical Exam Vital Signs Vital Signs Date Time Temp Pulse Resp B/P (MAP) Pulse Ox O2 Delivery O2 Flow Rate FiO2 09/01/17 09:20 (79) Room Air 09/01/17 08:47 98.7 91 18 123/57 (79) 98 Room Air Physical Exam GENERAL: 26-year-old male resting in bed in mild distress secondary to abdominal pain SKIN: Warm and dry. HEAD: Atraumatic. Normocephalic. EYES: Pupils equal and round around 3 mm bilaterally and reactive. No scleral icterus. No injection or drainage. ENT: No nasal bleeding or discharge. Mucous membranes pink and moist. NECK: Trachea midline. No JVD. CARDIOVASCULAR: Regular rate and rhythm. S1, S2 no S4. Without murmur RESPIRATORY: Diminished breath sounds bilateral posterior lung abdi. No wheezing. GASTROINTESTINAL: Abdomen s protuberant and distended. Prior left upper quadrant scar from G-tube well-healed. Large old incision scar over left upper/ right upper quadrant. Ileostomy site with pink mucosa with pinkish red stool output. High-pitched bowel sounds right upper quadrant. MUSCULOSKELETAL: Extremities without significant peripheral edema. No obvious deformities. NEUROLOGICAL: Awake and alert. No obvious cranial nerve deficits. Motor grossly within normal limits. Five out of 5 muscle strength in the arms and legs. Normal speech. Laboratory Laboratory Tests Test 09/01/17 09:10 White Blood Count 8.7 Red Blood Count 2.41 Hemoglobin 6.9 Hematocrit 20.8 Mean Corpuscular Volume 86.1 Mean Corpuscular Hemoglobin 28.6 Mean Corpuscular Hemoglobin Concent 33.2 Red Cell Distribution Width 18.3 Platelet Count 102 Mean Platelet Volume 8.1 Neutrophils (%) (Auto) 81.9 Lymphocytes (%) (Auto) 9.2 Monocytes (%) (Auto) 7.9 Eosinophils (%) (Auto) 0.9 Basophils (%) (Auto) 0.1 Neutrophils # (Auto) 7.1 Lymphocytes # (Auto) 0.8 Monocytes # (Auto) 0.7 Eosinophils # (Auto) 0.1 Basophils # (Auto) 0.0 CBC Comment DIFF FINAL Differential Comment Blood Urea Nitrogen 43 Creatinine 3.08 Random Glucose 178 Total Protein 4.8 Albumin 1.6 Calcium Level 7.3 Alkaline Phosphatase 274 Aspartate Amino Transf (AST/SGOT) 36 Alanine Aminotransferase (ALT/SGPT) 38 Total Bilirubin 1.4 Sodium Level 138 Potassium Level 6.5 Chloride Level 109 Carbon Dioxide Level 19.9 Anion Gap 9 Estimat Glomerular Filtration Rate 25 Lactic Acid Level 1.3 Protein Corrected Calcium 8.6 Ammonia 243 Lipase 36 Result Diagram: 09/01/1710 09/01/1710 Imaging Last Impressions Abdomen/Pelvis CT 09/01/17 0853 Signed Impressions: Service Date/Time: Friday, September 01, 2017 09:39 - CONCLUSION: 1. Obstructive gas pattern with marked dilatation of the stomach and small bowel. 2. Air and fecal appearing debris throughout the mid to distal small bowel. Distention may be due to impaction since an acute transition point is not identified. 3. Cirrhotic appearing liver with evidence of prior portal venous shunt. 4. Pancreatic calcifications. 5. Bilateral pleural effusions and bibasilar airspace disease. 6. Right-sided chest tube. Adin Peguero MD Septic Shock Reassessment Septic shock perfusion: reassessment completed Caprini VTE Risk Assessment Caprini VTE Risk Assessment: Mod/High Risk (score >= 2) VTE Pharm Contraindication: Documented Caprini Risk Assessment Model Point Value = 1 Point Value = 2 Point Value = 3 Point Value = 5 Age 41-60 Minor surgery BMI > 25 kg/m2 Swollen legs Varicose veins or History of unexplained or recurrent spontaneous Oral contraceptives or hormone replacement Sepsis (< 1 month) Serious lung disease, including pneumonia (< 1 month) Abnormal pulmonary function Acute myocardial infarction Congestive heart failure (< 1 month) History of inflammatory bowel disease Medical patient at bed rest Age 61-74 Arthroscopic surgery Major open surgery (> 45 min) Laparoscopic surgery (> 45 min) Malignancy Confined to bed (> 72 hours) Immobilizing plaster cast Central venous access Age >= 75 History of VTE Family history of VTE Factor V Leiden Prothrombin [id number] Lupus anticoagulant Anticardiolipin antibodies Elevated serum homocysteine Heparin-induced thrombocytopenia Other congenital or acquired thrombophilia Stroke (< 1 month) Elective arthroplasty Hip, pelvis, or leg fracture Acute spinal cord injury (< 1 month) Prophylaxis Regimen Total Risk Factor Score Risk Level Prophylaxis Regimen 0-1 Low Early ambulation 2 Moderate Order ONE of the following: *Sequential Compression Device (SCD) *Heparin 5000 units SQ BID 3-4 Higher Order ONE of the following medications: *Heparin 5000 units SQ TID *Enoxaparin/Lovenox 40 mg SQ daily (WT < 150 kg, CrCl > 30 mL/min) *Enoxaparin/Lovenox 30 mg SQ daily (WT < 150 kg, CrCl > 10-29 mL/min) *Enoxaparin/Lovenox 30 mg SQ BID (WT < 150 kg, CrCl > 30 mL/min) AND/OR *Sequential Compression Device (SCD) 5 or more Highest Order ONE of the following medications: *Heparin 5000 units SQ TID (Preferred with Epidurals) *Enoxaparin/Lovenox 40 mg SQ daily (WT < 150 kg, CrCl > 30 mL/min) *Enoxaparin/Lovenox 30 mg SQ daily (WT < 150 kg, CrCl > 10-29 mL/min) *Enoxaparin/Lovenox 30 mg SQ BID (WT < 150 kg, CrCl > 30 mL/min) AND *Sequential Compression Device (SCD) Assessment and Plan Assessment and Plan Neuro/Psych: Depression Escitalopram 5 mg p.o. daily/medication Ofirmev 1 g IV every 8 hours as needed fever Currently written for hydromorphone 0.5 - 1 mg IV every 3 hours as needed pain 1 -10 CV: Currently on normal saline at 84 cc an hour Not requiring vasopressors and/or antihypertensives Follow-up EKG Currently holding furosemide 40 mg p.o. daily/home medication for ascites Resp: History of double lung transplant Bilateral pleural effusions with the right Pleurx catheter placed 06/09 --1 L today Nasal cannula to maintain saturations greater than equal 92% Incentive spirometry while awake Continue mycophenolate 500 mg p.o. twice daily when clinically indicated GI: Small bowel obstruction versus fecal impaction Hepatic encephalopathy Liver cirrhosis on transplant list at [facility] History of TIPS Pantoprazole 40 mg IV daily/home medication less than 40 mg twice daily at home Docusate/senna for bowel regimen. Please NG tube if coags within normal limits. Recent EGD 2015 revealed no esophageal varices. Consult to GI and general surgery Ursodiol 300 mg BID Continue rifaximin 500 mg twice daily and lactulose 30 cc 3 times daily for hyperammonia. Pancreas [id number] 3 times daily : Crockett catheter if indicated for accurate I's and O's in a critical patient Endo: Chronic prednisone use -10 mg daily IDDM Insulin pump in left lower quadrant has been removed. Sliding-scale insulin with Novulin R medium regimen with Accu-Cheks every 4 hours to maintain glycemia Currently on hydrocortisone 100 mg IV 3 times daily while n.p.o. Renal: Acute kidney injury in setting of chronic kidney disease stage IIIa Check urine electrolytes and eosinophils CT abdomen/pelvis revealed no hydronephrosis Recheck BMP, mag and phosphate a.m. Heme: Normocytic anemia Thrombocytopenia Baseline hemoglobin on 8. Monitor CBC Coags currently pending ID: Monitor for infection FEN: Hyperkalemia Replace electrolytes as clinically indicated Received insulin/D50 and bicarbonate ED. Recheck pending MSK: Osteoarthritis PT evaluate and Resume ErgoCalciferol 50,000 units q. Saturday Access: -Access right Jlcoqr-k-Rxtc with a Obrien needle. Central line if indicated Prophylaxis -GI -pantoprazole -DVT -SCD/holding pharmacological prophylaxis in light of possible surgical intervention/pending coags Level 2 admission Code Status Full code Discussed Condition With Dr. Evans is ED physician. Dr. Kapadia/GI. Dr. Dave/general surgery. Mother and father. Patient. Care plan discussed and all questions answered Problem Qualifiers (1) Bowel obstruction: Qualified Codes: K56.609 - Unspecified intestinal obstruction, unspecified as to partial versus complete obstruction (2) Gastroesophageal reflux disease: Qualified Codes: K21.0 - Gastro-esophageal reflux disease with esophagitis (3) Cirrhosis: Qualified Codes: K74.69 - Other cirrhosis of liver (4) Depression: Qualified Codes: F33.42 - Major depressive disorder, recurrent, in full remission (5) DM (diabetes mellitus): Qualified Codes: E10.8 - Type 1 diabetes mellitus with unspecified complications Raymond Ceballos MD Sep 01, 2017 12:59
[2017-09-01] MEDS: ARTIFICIAL TEARS OPTH SOLN 15 ML BTL EACH EYE SCH ×2 (13:00→18:00)
--- NOTE | 2017-09-01 13:09 | RADRPT ---
EXAM DATE/TIME: 09/01/2017 12:32 [facility] COMPARISON: CHEST PA & LAT, May 31, 2016, 8:42. CHEST SINGLE AP, July 14, 2017, 7:06. INDICATIONS : Short of breath. MEDICAL HISTORY : Cystic fibrosis. SURGICAL HISTORY : Double lung transplant. ENCOUNTER: Initial ACUITY: 1 day PAIN SCORE: Non-responsive. LOCATION: Bilateral chest FINDINGS: Chronic interstitial alveolar disease remains evident throughout both lungs. There is increasing opac ity is present in the left base. Costophrenic angles remain blunted. Heart is mildly enlarged. Right Powmew-v-Hamm catheter is in stable position. CONCLUSION: 1. Significant chronic interstitial alveolar disease remains evident throughout both lungs. 2. Increasing central opacity and left basilar opacity may indicate pulmonary congestion and or acute air space disease. 3. Chronic blunting of the costophrenic angles. Adin Peguero MD on September 01, 2017 at 13:04 Board Certified Radiologist. This report was verified electronically.
[2017-09-01] MEDS: LIPASE/PROTEASE/AMYLASE (24,000/76,000/120,000) CAP PO SCH ×2 (13:30→18:30)
[2017-09-01] MEDS ORDERED: PANCRELIPASE PO SCH (13:30)
[2017-09-01] MEDS ORDERED: ACETAMINOPHEN 1000 MG/100 ML 100 ML IV PRN (14:00)
[2017-09-01] MEDS ORDERED: HYDROmorphone HCL PF 1 MG/ML VIAL IV PUSH PRN (14:00)
[2017-09-01] MEDS ORDERED: DEXTROSE 50% IN WATER 50 ML VIAL(D50) IV PUSH PRN (14:00)
[2017-09-01] MEDS ORDERED: GLUCAGON 1 MG/ML VIAL OTHER PRN (14:00)
[2017-09-01] MEDS ORDERED: HYDROmorphone HCL PF 2 MG/ML VIAL IV PUSH PRN (14:00)
--- NOTE | 2017-09-01 14:29 | PD.CONS ---
HPI History of Present Illness This is a 26 year old with significant past medical history includes cystic fibrosis, diabetes mellitus on insulin pump, end-stage liver disease, on liver transplant list, portal hypertension with a history of TIPS, hepatic encephalopathy on rifaximin and lactulose chronically with a history of double lung lung transplant and history of ileostomy June 2016 at [facility] in [place]. He also has a history of a Pleurx catheter right-sided for chronic pleural effusion. Patient presents to [facility] with acute increasing abdominal pain, distention, decreased ileostomy output which started yesterday. CT was performed of the abdomen/pelvis revealed gastric distention/fluid with appears to be fecal impaction versus obstruction in the small bowel with dilatation duodenum/jejunum. No transition zone. Collapsed colon distal. Right lower quadrant ileostomy site. Pancreatic calcification which are chronic with moderate bilateral pleural effusions. Pt has base line chronic anemia. Mom at bed side, with no bleeding reported, he has had N/V yesterday. Abd is grossly distended on physial exam. ammonia is 243, so pt is lethargic and not able to provide detailed HPI. No recent hx of SBO. He had few episodes as a child. (Yvette Morrell) PFSH Past Medical History History of liver cirrhosis Cystic fibrosis Pancreatic insufficiency Diabetes mellitus Hypertension/pulmonary History depression Chronic kidney disease stage IIIa Hyperammonia Gastroesophageal reflux disease Osteoporosis Recurrent pleural effusions Past Surgical History History of double lung transplant TIPS Right Rwyqxz-n-Nare Insulin pump History of G-tube since removed Past Surgical History History of double lung transplant TIPS Right Cebjyv-c-Odym Insulin pump History of G-tube since removed (Yvette Morrell) Coded Allergies: vancomycin (Verified Adverse Reaction, Intermediate, 07/14/17) *MDRO Multi-Drug Resistant Organism (Verified Adverse Reaction, Unknown, ) MRSA PCR Screen (nares) Positive 05/28/16 Medications Current Medications Medications (Trade) Dose Ordered Sig/Cindy Route Start Time Stop Time Status Last Admin (Lexapro) 5 mg DAILY PO 09/02/17 09:00 (Lactulose Liq) 30 ml TID PO 09/01/17 13:00 (Cellcept) 500 mg BID PO 09/01/17 21:00 (Creon [id number]) 1 cap TIDPC PO 09/01/17 13:30 (Xifaxan) 550 mg Q12HR PO 09/01/17 21:00 (Actigall) 300 mg BID PO 09/01/17 21:00 Sodium Chloride 1,000 ml @ 84 mls/hr [id number] IV 09/01/17 11:52 (NS Flush) 2 ml UNSCH PRN IV FLUSH 09/01/17 12:00 (NS Flush) 2 ml BID IV FLUSH 09/01/17 21:00 (Protonix Inj) 40 mg DAILY IV PUSH 09/02/17 09:00 (Tears Naturale Opth Soln) 1 drop TID EACH EYE 09/01/17 13:00 (Zofran Inj) 4 mg Q6H PRN IV PUSH 09/01/17 12:00 (Albuterol Neb) 2.5 mg Q2HR NEB PRN INH 09/01/17 12:00 Miscellaneous Information 1 Q361D XX 09/01/17 12:00 (Chlorhexidine 2% Cloth) 3 pack Taper DAILY@04 TOP 09/02/17 04:00 08/29/18 03:59 (Chlorhexidine 2% Cloth) 3 pack UNSCH PRN TOP 09/01/17 12:00 (Sharron-Colace) 1 tab BID PO 09/01/17 21:00 (Milk Of Magnesia Liq) 30 ml Q12H PRN PO 09/01/17 12:00 (Senokot) 17.2 mg Q12H PRN PO 09/01/17 12:00 (Dulcolax Supp) 10 mg DAILY PRN RECTAL 09/01/17 12:00 (Lactulose Liq) 30 ml DAILY PRN PO 09/01/17 12:00 (SoluCORTEF INJ) 100 mg Q8HR IV PUSH 09/01/17 14:00 (Dilaudid Pf Inj) 1 mg Q4H PRN IV PUSH 09/01/17 14:00 (Dilaudid Pf Inj) 0.5 mg Q4H PRN IV PUSH 09/01/17 14:00 Acetaminophen 100 ml @ 400 mls/hr Q8HR PRN IV 09/01/17 14:00 (D50w (Vial) Inj) 50 ml UNSCH PRN IV PUSH 09/01/17 14:00 UNV (Glucagon Inj) 1 mg UNSCH PRN OTHER 09/01/17 14:00 UNV (NovoLIN R SUPPLEMENTAL SCALE) 1 Q4HR SQ 09/01/17 16:00 UNV Family History Non contributory Social History No alcohol No smoking (Yvette Morrell) Review of Systems Gastrointestinal: COMPLAINS OF: Constipation, Nausea, Vomiting, Swelling of Abdomen ROS limited, due to pt condition (Yvette Morrell) GI Exam Vitals I&O Vital Signs Date Time Temp Pulse Resp B/P (MAP) Pulse Ox O2 Delivery O2 Flow Rate FiO2 09/01/17 12:30 94 135/56 (82) 96 Room Air 09/01/17 09:20 (79) Room Air 09/01/17 08:47 98.7 91 18 123/57 (79) 98 Room Air Imaging Last Impressions Abdomen/Pelvis CT 09/01/17 0853 Signed Impressions: Service Date/Time: Friday, September 01, 2017 09:39 - CONCLUSION: 1. Obstructive gas pattern with marked dilatation of the stomach and small bowel. 2. Air and fecal appearing debris throughout the mid to distal small bowel. Distention may be due to impaction since an acute transition point is not identified. 3. Cirrhotic appearing liver with evidence of prior portal venous shunt. 4. Pancreatic calcifications. 5. Bilateral pleural effusions and bibasilar airspace disease. 6. Right-sided chest tube. Adin Peguero MD Chest X-Ray 09/01/17 0000 Signed Impressions: Service Date/Time: Friday, September 01, 2017 12:32 - CONCLUSION: 1. Significant chronic interstitial alveolar disease remains evident throughout both lungs. 2. Increasing central opacity and left basilar opacity may indicate pulmonary congestion and or acute air space disease. 3. Chronic blunting of the costophrenic angles. Adin Peguero MD Laboratory Test 09/01/17 09:10 White Blood Count 8.7 TH/MM3 Red Blood Count 2.41 MIL/MM3 Hemoglobin 6.9 GM/DL Hematocrit 20.8 % Mean Corpuscular Volume 86.1 FL Mean Corpuscular Hemoglobin 28.6 PG Mean Corpuscular Hemoglobin Concent 33.2 % Red Cell Distribution Width 18.3 % Platelet Count 102 TH/MM3 Mean Platelet Volume 8.1 FL Neutrophils (%) (Auto) 81.9 % Lymphocytes (%) (Auto) 9.2 % Monocytes (%) (Auto) 7.9 % Eosinophils (%) (Auto) 0.9 % Basophils (%) (Auto) 0.1 % Neutrophils # (Auto) 7.1 TH/MM3 Lymphocytes # (Auto) 0.8 TH/MM3 Monocytes # (Auto) 0.7 TH/MM3 Eosinophils # (Auto) 0.1 TH/MM3 Basophils # (Auto) 0.0 TH/MM3 CBC Comment DIFF FINAL Differential Comment Blood Urea Nitrogen 43 MG/DL Creatinine 3.08 MG/DL Random Glucose 178 MG/DL Total Protein 4.8 GM/DL Albumin 1.6 GM/DL Calcium Level 7.3 MG/DL Alkaline Phosphatase 274 U/L Aspartate Amino Transf (AST/SGOT) 36 U/L Alanine Aminotransferase (ALT/SGPT) 38 U/L Total Bilirubin 1.4 MG/DL Sodium Level 138 MEQ/L Potassium Level 6.5 MEQ/L Chloride Level 109 MEQ/L Carbon Dioxide Level 19.9 MEQ/L Anion Gap 9 MEQ/L Estimat Glomerular Filtration Rate 25 ML/MIN Lactic Acid Level 1.3 mmol/L Protein Corrected Calcium 8.6 MG/DL Ammonia 243 MCMOL/L Lipase 36 U/L Physical Examination HEENT:normocephalic; atraumatic; no jaundice. CHEST: Chest is clear to auscultation and percussion. CARDIAC: Regular rate and rhythm with no murmur gallop or rubs. ABDOMEN: Abdomen protuberant and distended. Prior left upper quadrant scar from G-tube well-healed. Large old incision scar over left upper/right upper quadrant. Ileostomy site with pink mucosa with pinkish red stool output. Hypoactive bowel sounds EXTREMITIES: No clubbing, cyanosis, or edema. SKIN: Normal; no rash; no jaundice. 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 fecal impaction- Symptoms started yesterday with abd distension and decreased out put in ileostomy, had few episodes of N/V CT was performed of the abdomen/pelvis revealed gastric distention/fluid with appears to be fecal impaction versus obstruction in the small bowel with dilatation duodenum/jejunum. No transition zone. Collapsed colon distal. Right lower quadrant ileostomy site. Pancreatic calcification which are chronic with moderate bilateral pleural effusions. - Hepatic encephalopathy- on lactulose and Xifaxan - Liver cirrhosis, on liver transplant list, History of TIPS - Chronic anemia - History of double lung transplant - hx of cystic fibrosis Plan: - NPO - Will need NGT for decompression once coags resulted - SBFT once NGT placed - GS on the case - Supportive care - Pt seen and examined by Dr. Kapadia and myself and this note is written on his behalf. (Yvette Morrell) Physician Comments Seen and examined. D/W his mother, will proceed with SBFT and bowel prep afterward. Thank you for the consult. (Domingo Kapadia MD) Yvette Morrell Sep 01, 2017 14:29 Domingo Kapadia MD Sep 01, 2017 23:16
[2017-09-01 14:41] LABS: INTERNATIONAL NORMALIZED RATIO 1.5 RATIO; PROTHROMBIN TIME - PATIENT 14.7 SEC (9.8-11.6)
[2017-09-01] MEDS: LACTULOSE SYRUP 20 GM/30 ML CUP PO SCH ×2 (14:48→18:37)
[2017-09-01] MEDS: HYDROCORTISONE SOD SUCCINATE 100 MG VIAL IV PUSH SCH ×2 (14:48→21:53)
[2017-09-01] MEDS ORDERED: MYCOPHENOLATE MOFETIL 500 MG TAB PO SCH (15:00)
[2017-09-01 15:49] LABS: MAGNESIUM 2.7 MG/DL (1.5-2.5); PHOSPHORUS 5.2 MG/DL (2.5-4.9)
[2017-09-01] MEDS: INSULIN NovoLIN REGULAR SUPPLEMENTAL SCALE SQ SCH ×3 (17:15→23:14)
[2017-09-01] MEDS ORDERED: CALCIUM GLUCONATE 10% 1 GM/10 ML VIAL SLOW IVP ONE (17:15)
[2017-09-01] MEDS ORDERED: RESP: ALBUTEROL 2.5 MG/3 ML NEB (SCH) NEB ONE (17:15)
[2017-09-01] MEDS ORDERED: SODIUM CHLORID 0.9% 500 ML INJ 500 ML IV ONE (17:15)
[2017-09-01] MEDS ORDERED: CALCIUM GLUCONATE INJ 1 GM in SODIUM CHLORIDE 0.9% INJ 100 ML IV ONE (17:15)
[2017-09-01] MEDS ORDERED: SODIUM POLYSTYRENE SULFONATE SUSP 15 GM/60 ML CUP PO ONE (17:15)
[2017-09-01] MEDS ORDERED: DEXTROSE 50% IN WATER 50 ML SYRINGE ONE (18:40)
[2017-09-01] MEDS: TACROLIMUS 0.5 MG CAP PO SCH (18:50)
[2017-09-01] MEDS: SODIUM CHLORIDE 0.9% FLUSH 10 ML FLUSH IV FLUSH SCH (19:54)
[2017-09-01] MEDS: MYCOPHENOLATE MOFETIL 500 MG TAB PO SCH (20:27)
[2017-09-01] MEDS: RIFAXIMIN 550 MG TAB PO SCH (20:28)
[2017-09-01] MEDS: DOCUSATE SODIUM 50 MG/SENNA 8.6 MG TAB PO SCH (20:28)
[2017-09-01] MEDS: URSODIOL 300 MG CAP PO SCH (20:28)
[2017-09-01 22:20] LABS: FREE T3 0.54 PG/ML (2.18-3.98); FREE T4 1.07 NG/DL (0.76-1.46)
[2017-09-01] MEDS: SODIUM POLYSTYRENE SULFONATE SUSP 15 GM/60 ML CUP NG SCH (23:05)
[2017-09-02] VITALS (16 sets, daily range): BP systolic 108–130; BP diastolic 56–59; PULSE 109–126; RESP 16–25; TEMP 97.4–98.6; O2SAT 94–100
[2017-09-02] MEDS: SODIUM POLYSTYRENE SULFONATE SUSP 15 GM/60 ML CUP NG SCH ×2 (01:46→04:24)
[2017-09-02] MEDS: INSULIN NovoLIN REGULAR SUPPLEMENTAL SCALE SQ SCH ×6 (04:00→23:26)
[2017-09-02] MEDS: CHLORHEXIDINE GLUCONATE 2 % 1 PACK (2 CLOTHS) TOP SCH (04:00)
[2017-09-02 05:03] LABS: BASOPHIL % 0.1 % (0.0-2.0); HEMATOCRIT 24.2 % (39.0-51.0); HEMOGLOBIN 7.9 GM/DL (13.0-17.0); LYMPH % 2.1 % (9.0-44.0); LYMPHOCYTE # 0.5 TH/MM3 (1.0-4.8); MEAN CELL VOLUME 85.9 FL (80.0-100.0); MEAN CORPUSCULAR HGB CONC 32.6 % (32.0-36.0); MEAN PLATELET VOLUME 8.4 FL (7.0-11.0); MONOCYTE # 1.6 TH/MM3 (0-0.9); NEUT % 91.8 % (16.0-70.0); PLATELET COUNT 155 TH/MM3 (150-450); RED BLOOD COUNT 2.81 MIL/MM3 (4.50-5.90); RED CELL DISTRIBUTION WIDTH 18.4 % (11.6-17.2); WHITE BLOOD COUNT 26.2 TH/MM3 (4.0-11.0)
[2017-09-02 05:08] LABS: INTERNATIONAL NORMALIZED RATIO 1.7 RATIO; PROTHROMBIN TIME - PATIENT 17.1 SEC (9.8-11.6)
[2017-09-02 05:35] LABS: ALBUMIN 1.5 GM/DL (3.4-5.0); AST (GOT) 32 U/L (15-37); BLOOD UREA NITROGEN 46 MG/DL (7-18); CALCIUM 7.9 MG/DL (8.5-10.1); CHLORIDE 112 MEQ/L (98-107); CREATININE 3.63 MG/DL (0.60-1.30); GLOMERULAR FILTRATION RATE 21 ML/MIN (>89); GLUCOSE,RANDOM 143 MG/DL (74-106); MAGNESIUM 2.6 MG/DL (1.5-2.5); SODIUM (NA) 143 MEQ/L (136-145)
[2017-09-02 05:40] LABS: ALKALINE PHOSPHATASE 273 U/L (45-117); ALT (GPT) 38 U/L (12-78); PHOSPHORUS 6.3 MG/DL (2.5-4.9); TOTAL PROTEIN 4.5 GM/DL (6.4-8.2)
[2017-09-02] MEDS: HYDROCORTISONE SOD SUCCINATE 100 MG VIAL IV PUSH SCH ×3 (05:45→22:38)
[2017-09-02] MEDS: TACROLIMUS 1 MG CAP PO SCH (06:00)
[2017-09-02] MEDS ORDERED: INSULIN HUMAN REGULAR 1,000 UNITS/10 ML VIAL IV PUSH ONE ×2 (07:00→18:45)
[2017-09-02] MEDS ORDERED: RESP: ALBUTEROL 2.5 MG/IPRATROPIUM 0.5 MG NEB (SCH) NEB ONE (07:00)
[2017-09-02] MEDS ORDERED: DEXTROSE 50% IN WATER 50 ML SYRINGE IV PUSH ONE (07:00)
[2017-09-02] MEDS ORDERED: SODIUM BICARBONATE 8.4% INJ 100 MEQ in DEXTROSE 5% IN WATE 1000ML INJ 1,000 ML IV SCH ×2 (07:00)
[2017-09-02] MEDS ORDERED: SODIUM BICARBONATE 8.4% INJ 50 MEQ/50 ML SYR IV PUSH ONE (07:00)
--- NOTE | 2017-09-02 07:24 | RADRPT ---
EXAM DATE/TIME: 09/02/2017 06:59 [facility] COMPARISON: CHEST SINGLE AP, September 01, 2017, 12:32. INDICATIONS : Shortness of breath. MEDICAL HISTORY : Cystic fibrosis. SURGICAL HISTORY : Double lung transplant. ENCOUNTER: Subsequent ACUITY: 2 days PAIN SCORE: Non-responsive. LOCATION: Bilateral chest FINDINGS: There is slight improvement in bilateral mixed interstitial and alveolar process with improvement in aeration of the lungs since the prior exam. Left pleural effusion appears possibly slightly smaller. Right IJ Zbuheo-j-Rrfy is present with tip overlapping the expected region of the SVC. NG tube is pre sent with tip in the stomach. Slight cardiomegaly has not changed. CONCLUSION: Slight improvement in the aeration of the lungs. Maxine Whitlock MD on September 02, 2017 at 7:21 Board Certified Radiologist. This report was verified electronically.
[2017-09-02] MEDS: ALBUMIN 25% INJ 100 ML IV SCH ×2 (07:27→16:44)
[2017-09-02] MEDS ORDERED: SODIUM CHLOR 0.9% 1000 ML INJ 1,000 ML IV ONE ×2 (07:45→13:00)
--- NOTE | 2017-09-02 07:45 | HHI.CCPN ---
Subjective Remarks/Hospital Course This is a 26-year-old male. Date of admission 09/01/2017. Past medical history includes cystic fibrosis, diabetes mellitus on insulin pump, end -stage liver disease on transplant list, portal hypertension with a history of TIPS, hepatic encephalopathy on rifaximin and lactulose chronically with a history of double lung lung transplant and history of ileostomy June 2016 at [facility] in [place]. He also has a history of a Pleurx catheter right-sided for chronic pleural effusion. Patient presents to [facility] with family with 12 hour history of acute increasing abdominal pain, distention, decreased ileostomy output. The patient was slightly confused last night, had multiple doses of lactulose, but continues to have poor ileostomy output. The patient has had multiple abdominal surgeries in the past including for intestinal atresia at in [place] and a recent ileostomy in June 2016 at [facility] in [place].. There are no current alleviating factors. No associated fever. The patient does have a history of chronic right pleural effusions, has a chronic Pleurx catheter drain ~ 1000 cc of the fluid this morning. Workup included baseline laboratories. White blood cell count within normal limits. Hemoglobin 7. Potassium was 6.5 which received D50/insulin and bicarbonate with recheck pending. Ammonia levels 243. Creatinine 3.1 which is above his baseline. Patient received normal saline infusion and a CT was performed of the abdomen/pelvis revealed gastric distention/fluid with appears to be fecal impaction versus obstruction in the small bowel with dilatation duodenum/jejunum. No transition zone. Collapsed colon distal. Right lower quadrant ileostomy site. Pancreatic calcification which are chronic with moderate bilateral pleural effusions. SUBJ 09/02: Patient is more critically ill, abdomen distended and more tender. Creat worse 3.08 to 3.67. Overnight UO approximately 350 ml. Lactic acid increased to 3.2, ammonia 284. WBC 26.2 today, check C Diff, start empiric Flagyl. Discussed with Dr. Dave. He will discuss with Dr. Regan re ileoscopy ?Irrigation. Also stat CT abd ordered. Objective Vital Signs Date Time Temp Pulse Resp B/P (MAP) Pulse Ox O2 Delivery O2 Flow Rate FiO2 09/02/17 06:00 113 09/02/17 04:00 97.4 19 130/58 (82) 97 09/01/17 20:00 Room Air 09/01/17 17:16 21 Intake and Output 09/02/17 09/02/17 09/03/17 08:00 16:00 00:00 Output Total 925 ml Balance -925 ml Result Diagram: 09/02/17 0437 09/02/17 0437 Other Results Laboratory Tests Test 09/02/17 07:19 Blood Gas Puncture Site LT BRACHIAL Blood Gas Patient Temperature 98.6 Blood Gas HCO3 22 mmol/L (22-26) Blood Gas Base Excess -0.9 mmol/L (-2-2) Blood Gas Oxygen Saturation 92 % (90-100) Arterial Blood pH 7.50 (7.380-7.420) Arterial Blood Partial Pressure CO2 28 mmHg (38-42) Arterial Blood Partial Pressure O2 66 mmHg (61-120) Arterial Blood Oxygen Content 9.0 Vol % (12.0-20.0) Arterial Blood Carboxyhemoglobin 2.4 % (0-4) Arterial Blood Methemoglobin 1.0 % (0-2) Blood Gas Hemoglobin 6.9 G/DL (12.0-16.0) Blood Gas Inspired Oxygen 21 % Imaging Last Impressions Abdomen/Pelvis CT 09/01/17 0853 Signed Impressions: Service Date/Time: Friday, September 01, 2017 09:39 - CONCLUSION: 1. Obstructive gas pattern with marked dilatation of the stomach and small bowel. 2. Air and fecal appearing debris throughout the mid to distal small bowel. Distention may be due to impaction since an acute transition point is not identified. 3. Cirrhotic appearing liver with evidence of prior portal venous shunt. 4. Pancreatic calcifications. 5. Bilateral pleural effusions and bibasilar airspace disease. 6. Right-sided chest tube. Adin Peguero MD Objective Remarks GENERAL: 26-year-old male resting in bed lethargic, tachypneic moderate distress secondary to abdominal pain SKIN: Warm and dry. HEAD: Atraumatic. Normocephalic. EYES: Pupils equal and round around 3 mm bilaterally and reactive. No scleral icterus. No injection or drainage. ENT: No nasal bleeding or discharge. Mucous membranes very dry NECK: Trachea midline. No JVD. CARDIOVASCULAR: Tachycardic rate and rhythm. S1, S2 no S4. Without murmur RESPIRATORY: Diminished breath sounds bilateral posterior lung abdi. No wheezing. GASTROINTESTINAL: Abdomen protuberant and distended, tender to palpation. Prior left upper quadrant scar from G-tube well-healed. Large old incision scar over left upper/right upper quadrant. Ileostomy site with pink mucosa with pinkish red stool output, 150 ml since admission. High-pitched bowel sounds right upper quadrant. MUSCULOSKELETAL: Extremities with 1+ peripheral edema. No obvious deformities. NEUROLOGICAL: Lethargic, mumbles few words. Withdraws to pain A/P Assessment and Plan Neuro/Psych: Hepatic encephalopathy Depression Home med Escitalopram 5 mg p.o. daily/medication-hold due to lethargy DC Ofirmev 1 g IV every 8 hours as needed fever Currently written for hydromorphone 0.5 - 1 mg IV every 3 hours as needed pain 1 -10- Minimize due to ileus CV: Lactic acidosis Currently on normal saline at 84 cc an hour, give 1 L normal saline bolus and change IV fluid to bicarbonate infusion with half-normal saline at 1 25 mL/h Not requiring vasopressors and/or antihypertensives Follow-up EKG. hypokalemia treatment as below Currently holding furosemide 40 mg p.o. daily/home medication for ascites due to worsening renal failure Resp: History of double lung transplant Bilateral pleural effusions with the right Pleurx catheter placed 06/09 Nasal cannula to maintain saturations greater than equal 92% Incentive spirometry while awake Continue mycophenolate 500 mg p.o. twice daily when clinically indicated Patient may need endotracheal intubation for airway protection. GI: Small bowel obstruction versus fecal impaction Hepatic encephalopathy Liver cirrhosis on transplant list at [facility] History of TIPS Repeat CT of the abdomen pelvis stat due to worsening pain and dilation Discussed with Dr. Dave. He has discussed with Dr. Regan, who may attempt ileoscopy Discussed with parents, they do not want any surgical intervention. And they do not want transferred to the transplant center in [place] either Pantoprazole 40 mg IV daily/home medication less than 40 mg twice daily at home Docusate/senna for bowel regimen. NG tube placed. Recent EGD 2015 revealed no esophageal varices. GI and general surgery following Ursodiol 300 mg BID Continue rifaximin 500 mg twice daily and lactulose 30 cc 3 times daily for hyperammonia. Pancreas [id number] 3 times daily : Crockett catheter for accurate I's and O's in a critical patient Endo: Chronic prednisone use -10 mg daily IDDM Insulin pump in left lower quadrant has been removed. Sliding-scale insulin with Novulin R medium regimen with Accu-Cheks every 4 hours to maintain glycemia Currently on hydrocortisone 100 mg IV 3 times daily while n.p.o. Renal: Acute kidney failure in setting of chronic kidney disease stage IIIa F/u urine electrolytes and eosinophils CT abdomen/pelvis revealed no hydronephrosis CMP at 1000 am Heme: Normocytic anemia Thrombocytopenia Baseline hemoglobin 7. Monitor CBC Coags currently pending ID: Monitor for infection FEN: Hyperkalemia, refractory to treatment Replace electrolytes as clinically indicated Received insulin/D50 and bicarbonate ED. Repeat treatment today with bicarb, IV insulin with dextrose, DuoNeb breathing treatment received Kayexalate MSK: Osteoarthritis PT evaluate and treat ErgoCalciferol 50,000 units q. Saturday Access: -Access right [id number] with a Obrien needle. Central line if indicated Prophylaxis -GI -pantoprazole -DVT -SCD/holding pharmacological prophylaxis in light of possible surgical intervention/pending coags Patient is critically ill now took a turn for the worse overnight with worsening encephalopathy, worsening acute renal failure, abdominal distention and ileus also worsening. Lactic acid has increased to 3.2, creatinine worsened to 3.67 ammonia level is highly elevated at 284. WBC has also increased to 26.2, INR 1.7. Patient is progressing multiorgan failure; prognosis is guarded. I discussed with the parents; they request the patient be made a DNR and made comfortable if there is deterioration. At this time they want continued treatment but no invasive surgeries, no intubation or CPR. I will also consult palliative care for family support CCT 77 min spent in evaluation and management of this critically ill patient, discussion with parents, Dr. Dave, bedside RN multiple times, review of chart/ labs/imaging Delia Canchola MD Sep 02, 2017 07:45
[2017-09-02] MEDS ORDERED: ESCITALOPRAM OXALATE 10 MG TAB PO SCH (09:00)
[2017-09-02] MEDS: MYCOPHENOLATE MOFETIL 500 MG TAB PO SCH (09:00)
[2017-09-02] MEDS ORDERED: PANTOPRAZOLE SODIUM 40 MG VIAL IV PUSH SCH (09:00)
--- NOTE | 2017-09-02 09:14 | HHI.GIFU ---
Subjective Remarks Pt resting in bed, family at bedside. Does not rouse to exam. Distended. (Antonia Miles) Objective Vitals I&O Vital Signs Date Time Temp Pulse Resp B/P (MAP) Pulse Ox O2 Delivery O2 Flow Rate FiO2 09/02/17 08:06 98 21 09/02/17 06:00 113 09/02/17 04:00 97.4 110 19 130/58 (82) 97 09/02/17 04:00 110 09/02/17 02:00 109 09/02/17 00:00 97.7 110 23 108/56 (73) 98 09/02/17 00:00 110 09/01/17 22:00 109 09/01/17 20:00 97.5 105 20 123/87 (99) 99 09/01/17 20:00 99 Room Air 09/01/17 20:00 105 09/01/17 18:00 105 09/01/17 17:16 97 21 09/01/17 16:27 96 Room Air 09/01/17 16:00 102 09/01/17 16:00 97.3 102 23 124/60 (81) 94 09/01/17 15:17 (82) 09/01/17 12:30 94 135/56 (82) 96 Room Air 09/01/17 09:20 (79) Room Air I/O 09/01/17 09/01/17 09/01/17 09/02/17 09/02/17 09/02/17 07:00 15:00 23:00 07:00 15:00 23:00 Intake Total 610 ml Output Total 1550 ml 925 ml Balance -940 ml -925 ml Intake Oral 0 ml IV Total 610 ml Output Urine Total 0 ml 225 ml Stool Total 150 ml Gastric Drainage Total 1400 ml 700 ml # Voids 1 # Bowel Movements 0 Laboratory Laboratory Tests Test 09/01/17 09:10 09/01/17 11:47 09/01/17 14:15 09/01/17 14:47 White Blood Count 8.7 Red Blood Count 2.41 Hemoglobin 6.9 Hematocrit 20.8 Mean Corpuscular Volume 86.1 Mean Corpuscular Hemoglobin 28.6 Mean Corpuscular Hemoglobin Concent 33.2 Red Cell Distribution Width 18.3 Platelet Count 102 Mean Platelet Volume 8.1 Neutrophils (%) (Auto) 81.9 Lymphocytes (%) (Auto) 9.2 Monocytes (%) (Auto) 7.9 Eosinophils (%) (Auto) 0.9 Basophils (%) (Auto) 0.1 Neutrophils # (Auto) 7.1 Lymphocytes # (Auto) 0.8 Monocytes # (Auto) 0.7 Eosinophils # (Auto) 0.1 Basophils # (Auto) 0.0 CBC Comment DIFF FINAL Differential Comment Blood Urea Nitrogen 43 Creatinine 3.08 Random Glucose 178 Total Protein 4.8 Albumin 1.6 Calcium Level 7.3 Alkaline Phosphatase 274 Aspartate Amino Transf (AST/SGOT) 36 Alanine Aminotransferase (ALT/SGPT) 38 Total Bilirubin 1.4 Sodium Level 138 Potassium Level 6.5 6.1 Chloride Level 109 Carbon Dioxide Level 19.9 Anion Gap 9 Estimat Glomerular Filtration Rate 25 Lactic Acid Level 1.3 Protein Corrected Calcium 8.6 Ammonia 243 Lipase 36 Random Cortisol 17.5 Prothrombin Time 14.7 Prothromb Time International Ratio 1.5 Activated Partial Thromboplast Time 25.7 Fibrinogen 244 Phosphorus Level 5.2 Magnesium Level 2.7 Thyroid Stimulating Hormone 3rd Gen 10.600 Test 09/01/17 15:45 09/01/17 17:23 09/01/17 21:20 09/02/17 04:37 Nasal Screen MRSA (PCR) MRSA DETECTED Potassium Level 5.9 5.6 6.3 Free Thyroxine 1.07 Free Triiodothyronine (T3) pg/dL 0.54 White Blood Count 26.2 Red Blood Count 2.81 Hemoglobin 7.9 Hematocrit 24.2 Mean Corpuscular Volume 85.9 Mean Corpuscular Hemoglobin 28.0 Mean Corpuscular Hemoglobin Concent 32.6 Red Cell Distribution Width 18.4 Platelet Count 155 Mean Platelet Volume 8.4 Neutrophils (%) (Auto) 91.8 Lymphocytes (%) (Auto) 2.1 Monocytes (%) (Auto) 6.0 Eosinophils (%) (Auto) 0.0 Basophils (%) (Auto) 0.1 Neutrophils # (Auto) 24.0 Lymphocytes # (Auto) 0.5 Monocytes # (Auto) 1.6 Eosinophils # (Auto) 0.0 Basophils # (Auto) 0.0 CBC Comment DIFF FINAL Differential Comment Prothrombin Time 17.1 Prothromb Time International Ratio 1.7 Activated Partial Thromboplast Time 28.9 Blood Urea Nitrogen 46 Creatinine 3.63 Random Glucose 143 Total Protein 4.5 Albumin 1.5 Calcium Level 7.9 Phosphorus Level 6.3 Magnesium Level 2.6 Alkaline Phosphatase 273 Aspartate Amino Transf (AST/SGOT) 32 Alanine Aminotransferase (ALT/SGPT) 38 Total Bilirubin 2.0 Sodium Level 143 Chloride Level 112 Carbon Dioxide Level 20.0 Anion Gap 11 Estimat Glomerular Filtration Rate 21 Lactic Acid Level 3.2 Ammonia 284 Test 09/02/17 06:45 09/02/17 07:19 Blood Gas Puncture Site LT BRACHIAL Blood Gas Patient Temperature 98.6 Blood Gas HCO3 22 Blood Gas Base Excess -0.9 Blood Gas Oxygen Saturation 92 Arterial Blood pH 7.50 Arterial Blood Partial Pressure CO2 28 Arterial Blood Partial Pressure O2 66 Arterial Blood Oxygen Content 9.0 Arterial Blood Carboxyhemoglobin 2.4 Arterial Blood Methemoglobin 1.0 Blood Gas Hemoglobin 6.9 Blood Gas Inspired Oxygen 21 Imaging Last Impressions Chest X-Ray 09/02/17 0000 Signed Impressions: Service Date/Time: Saturday, September 02, 2017 06:59 - CONCLUSION: Slight improvement in the aeration of the lungs. Maxine Whitlock MD Abdomen/Pelvis CT 09/01/17 0853 Signed Impressions: Service Date/Time: Friday, September 01, 2017 09:39 - CONCLUSION: 1. Obstructive gas pattern with marked dilatation of the stomach and small bowel. 2. Air and fecal appearing debris throughout the mid to distal small bowel. Distention may be due to impaction since an acute transition point is not identified. 3. Cirrhotic appearing liver with evidence of prior portal venous shunt. 4. Pancreatic calcifications. 5. Bilateral pleural effusions and bibasilar airspace disease. 6. Right-sided chest tube. Adin Peguero MD Physical Exam HEENT: normocephalic; atraumatic; no jaundice. NGT CHEST: coarse, tachypneic CARDIAC: tachy ABDOMEN: firm significantly distended and tympanitic, BS faint & hypoactive EXTREMITIES: No clubbing, cyanosis, or edema. 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 fecal impaction- Symptoms started yesterday with abd distension and decreased out put in ileostomy, had few episodes of N/V CT was performed of the abdomen/pelvis revealed gastric distention/fluid with appears to be fecal impaction versus obstruction in the small bowel with dilatation duodenum/jejunum. No transition zone. Collapsed colon distal. Right lower quadrant ileostomy site. Pancreatic calcification which are chronic with moderate bilateral pleural effusions. 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 distended, tympanitic. d/w CCM, family does nto want surgery but is agreeable to endoscopy. palliative care has been consulted. CT abd pending Plan: - ileoscopy/colonoscopy today - obtain consent - NPO - await CT - NGT to LIWS - await palliative care eval - Supportive care - Pt seen and examined by Dr. Kapadia and myself and this note is written on his behalf. (Antonia Miles) Physician Comments Seen and examined, plan as above, ileoscopy today. Further recommendations to follow. (Domingo Kapadia MD) Antonia Miles Sep 02, 2017 09:14 Domingo Kapadia MD Sep 02, 2017 12:20
[2017-09-02] MEDS: MUPIROCIN 2% OINT 1 APPLIC/GM SYR EACH NARE SCH ×2 (09:21→22:38)
[2017-09-02] MEDS: DOCUSATE SODIUM 50 MG/SENNA 8.6 MG TAB PO SCH ×2 (09:22→22:37)
[2017-09-02] MEDS: RIFAXIMIN 550 MG TAB PO SCH ×2 (09:22→22:37)
[2017-09-02] MEDS: LACTULOSE SYRUP 20 GM/30 ML CUP PO SCH ×3 (09:22→18:44)
[2017-09-02] MEDS: ARTIFICIAL TEARS OPTH SOLN 15 ML BTL EACH EYE SCH ×3 (09:23→18:00)
[2017-09-02] MEDS: metroNIDAZOLE 500 MG INJ 100 ML IV SCH ×2 (09:23→16:44)
[2017-09-02] MEDS: SODIUM CHLORIDE 0.9% FLUSH 10 ML FLUSH IV FLUSH SCH ×2 (09:23→21:00)
[2017-09-02] MEDS: LIPASE/PROTEASE/AMYLASE (24,000/76,000/120,000) CAP PO SCH ×3 (09:24→18:30)
[2017-09-02] MEDS: SODIUM BICARBONATE 8.4% INJ 75 MEQ in SODIUM CHLOR 0.45% 1000 ML INJ 1,000 ML IV SCH ×2 (09:46→18:44)
[2017-09-02] MEDS: URSODIOL 300 MG CAP PO SCH ×2 (09:47→22:37)
--- NOTE | 2017-09-02 09:49 | RADRPT ---
EXAM DATE/TIME: 09/02/2017 08:43 [facility] COMPARISON: CT ABDOMEN & PELVIS W/O CONTRAST, September 01, 2017, 9:39. INDICATIONS : Follow up ileus and obstruction. ORAL CONTRAST: No oral contrast ingested. RADIATION DOSE: 9.33 CTDIvol (mGy) MEDICAL HISTORY : Cystic fibrosis, diabetes, liver disease, renal disease. SURGICAL HISTORY : Ileostomy, double lung transplant. ENCOUNTER: Subsequent ACUITY: 2 days PAIN SCALE: 5/10 LOCATION: abdomen/pelvis TECHNIQUE: Volumetric scanning of the abdomen and pelvis was performed. Using automated exposure control and adjustment of the mA and/or kV according to patient size, radiation dose was kept as low as reasonably achievable to obtain optimal diagnostic quality images. DICOM format image data is av ailable electronically for review and comparison. FINDINGS: LOWER LUNGS: Moderate left and small right pleural effusions progressed since prior examination p articularly on the right. Right chest tube in place. Patchy airspace disease in the lung bases, more prominently on the right. LIVER: Cirrhotic liver with TIPS in place. SPLEEN: Enlarged without gross focal lesion. PANCREAS: Grossly stable in appearance with diffuse calcifications and suspected small pseudocyst s. KIDNEYS: Symmetrical in size without evidence of hydronephrosis or significant contour deforming abnormality. ADRENAL GLANDS: Within normal limits. VASCULAR: There is no aortic aneurysm. BOWEL/MESENTERY: Interval placement of an NGT with tip in the fundus of the stomach. Stomach is m oderately distended. Right lower quadrant ileostomy. Colon is completely decompressed. There is persi stent severe diffuse small bowel distention with fecalization. No discrete transition zone is identif ied although the very distal ileum near ileostomy is decompressed. Overall degree of small bowel dist ention is minimally improved. There is no definite pneumatosis or free air. No significant focal drai nable fluid collections. There is trace amount of ascites. ABDOMINAL WALL: Within normal limits. RETROPERITONEUM: There is no lymphadenopathy. BLADDER: Decompressed secondary to Crockett catheter. REPRODUCTIVE: Within normal limits. INGUINAL: There is no lymphadenopathy or hernia. MUSCULOSKELETAL: Within normal limits for patient age. CONCLUSION: 1. Interval NG tube placement with tip in the fundus of the stomach. There is persistent moderate dis tention of the stomach. Consider advancing the NG tube more distally. 2. Persistent moderate to severe small bowel obstruction pattern without evidence for bowel perforat ion or infarction. Although a discrete transition point is again not identified, the very distal ilea l loops near the ileostomy are decompressed. Findings are most consistent with an acute on chronic ob structive pattern, likely from adhesions. 3. Cirrhotic liver with TIPS stent in place. 4. Stable right-sided chest tube with small right and moderate left pleural effusions with right grea ter left bibasilar airspace disease, slightly progressed since prior exam. 5. Changes of prior pancreatitis. Paulie Soria MD on September 02, 2017 at 8:53 Board Certified Radiologist. This report was verified electronically.
--- NOTE | 2017-09-02 10:45 | MB ---
cc: Oliver Dave MD DATE OF CONSULT: 09/01/2017 CHIEF COMPLAINT: Bowel obstruction. HISTORY OF PRESENT ILLNESS: The patient is a 26-year-old male with a complex medical surgical history including cystic fibrosis, diabetes, liver and kidney disease, lung transplant and ileostomy creation. The patient presents with nausea and vomiting and abdominal pain. Pain level, the pain started approximately 24 hours ago and increased in intensity. The patient also had significant distention. The patient noted pain was initially a 10/10, currently a 4/10, improvement with fluids and pain control. He states it is worse with movement, better with lying still. Pain is somewhat diffuse, achy in nature. He came to the emergency department for further evaluation, including a CT scan showing concern for fecal impaction versus obstruction. He is noted to be hemodynamically stable and a WBC of 8.7, along with a lactate of 1.3 and ammonia of 243. Surgery was consulted for further evaluation. On my exam, the patient confirms the above and states he has never had previous history of obstruction in the past. He has had an ileostomy for small bowel polyps and noted to have surgeons in [place] that have been treating his care. He does note vomiting twice and having some nausea, but has felt better since NG tube was placed. Further noted to have decreased ileostomy output. PAST MEDICAL HISTORY: Liver cirrhosis, cystic fibrosis, biliary atresia, pancreatic insufficiency, diabetes, hypertension, pulmonary, depression, chronic kidney disease, hyperlipidemia, reflux, osteoporosis, pleural effusions. PAST SURGICAL HISTORY: Double lung transplant, TIPS, Infusaport, insulin pump, a G tube status post removal, ileostomy. MEDICATIONS: See EMR, CellCept, prednisone, Prograf. ALLERGIES: VANCOMYCIN. FAMILY HISTORY: Cystic fibrosis in distant relatives. Otherwise, denies coronary artery disease or diabetes. SOCIAL HISTORY: Denies smoking, ETOH or IVDA. REVIEW OF SYSTEMS: GENERAL: Complains of weakness. Denies fevers or chills. HEENT: Denies eye pain, ear pain. NECK: Denies swelling or pain. LUNGS: Complains of effusions and cough. HEART: Denies palpitation or chest pain. ABDOMEN: Complains of nausea, vomiting, abdominal pain. : Denies dysuria, hematuria. ENDOCRINE: Denies polyuria, diabetes. INTEGUMENTARY: Denies any new masses or lesions. EXTREMITIES: Denies arthralgias, myalgias. NEUROLOGIC: Denies numbness or tingling. PHYSICAL EXAMINATION: GENERAL: The patient in no acute distress. VITAL SIGNS: Temperature 98.7, pulse 91, respiration 18, blood pressure 123/57, saturation 98%. HEENT: Pupils equal, round, reactive. NECK: Supple. Trachea midline. LUNGS: Bilateral expansion. Decreased basilar breath sounds. HEART: S1, S2, regular. ABDOMEN: Soft, positive distention, well healed midline surgical scar. Prolapse of pink ileostomy. Otherwise, intact. EXTREMITIES: Warm, well perfused. SKIN: No rashes or lesions. NEUROLOGIC: 5/5 motor all extremities. GCS is 15. LABORATORY DIAGNOSTIC DATA: WBC 8.7, hemoglobin 6.9, hematocrit 20.8, platelets 102. Sodium 138, potassium 6.5, chloride 109, BUN 43, creatinine 3, calcium 7.3, total bilirubin 1.4, AST 36, ALT 38, alkaline phosphatase 274, ammonia level 243, phosphorus 5.2, magnesium 2.7. INR 1.5. IMAGING: CT reviewed by myself, showing obstructive gas pattern, significantly dilated stomach and small bowel, fecalization of small bowel. No transition point, fecal impaction. Liver with cirrhotic appearance. Venous congestion. Pancreatic calcifications. Bilateral pleural effusions. ASSESSMENT: The patient is a 26-year-old male, complex medical surgical history, including cystic fibrosis, cirrhosis, diabetes, end stage liver disease, presents with bowel obstruction, likely due to fecal impaction, less likely mechanical. PLAN: After full clinical, radiological and focal workup, the patient with the above named issues including evidence of bowel obstruction. At this point, my concern is the patient does have fecal impaction in his small bowel. Surgery was consulted for further evaluation, management and operative intervention in the case of decomposition. We will initially attempt nonoperative management including medical treatment. First, the patient's hemoglobin is 6.9. Evidently, he is chronically anemic and this is relatively low normal for this patient. Recommend type and cross at least for 2 units on hold in case operative intervention is necessary. Further, the patient has electrolyte derangements. He further needs assistance with this and electrolyte correction and IV fluid hydration. Agree with the NG tube to low intermittent suction. We will continue this. The patient will benefit from stool softener, cathartics and bowel regimen. However, I do believe the patient would initially benefit from NGT compression for 12-24 hours. Also,the patient is planned for small bowel followthrough and again, I recommend allowing the GI tract to decompress for 12-24 hours prior to initiation of study. The patient does not have an acute abdomen at this time and, again, we will continue abdominal exams and medical treatment and consider operative intervention if necessary. Mother states if elective surgical intervention is needed, she would desire to go to [place], where he has a previous history of operations at this facility. However, I discussed with the mother that if it is an emergent situation, he may need to go to the operating room in the face of perforation or decompensation. The patient and mother understood and agreed. MD SKINNY Quiroz/EDDA , 09:51 PM , 11:56 PM
[2017-09-02 11:15] LABS: ALBUMIN 1.8 GM/DL (3.4-5.0); AST (GOT) 27 U/L (15-37); BICARBONATE 19.9 MEQ/L (21.0-32.0); BLOOD UREA NITROGEN 45 MG/DL (7-18); CALCIUM 7.6 MG/DL (8.5-10.1); CHLORIDE 114 MEQ/L (98-107); CREATININE 3.59 MG/DL (0.60-1.30); GLOMERULAR FILTRATION RATE 21 ML/MIN (>89); GLUCOSE,RANDOM 180 MG/DL (74-106); SODIUM (NA) 145 MEQ/L (136-145)
[2017-09-02 11:16] LABS: ALT (GPT) 32 U/L (12-78)
[2017-09-02 11:18] LABS: ALKALINE PHOSPHATASE 216 U/L (45-117); TOTAL BILIRUBIN ADULT 1.8 MG/DL (0.2-1.0); TOTAL PROTEIN 4.3 GM/DL (6.4-8.2)
[2017-09-02] MEDS ORDERED: LIDOCAINE HCL 1% PF 5 ML SYRINGE OTHER ONE (12:00)
[2017-09-02] MEDS ORDERED: PROPOFOL 200 MG/20 ML AMP IV ONE (12:00)
[2017-09-02] MEDS ORDERED: ROCURONIUM INJ 50 MG/5 ML SYRINGE IV PUSH ONE (12:00)
[2017-09-02] MEDS ORDERED: VASOPRESSIN INJ 40 UNITS in DEXTROSE 5% IN WATER 100ML INJ 98 ML IV SCH ×2 (12:45)
--- NOTE | 2017-09-02 12:46 | GIPROC ---
[facility] [address] [facility]. [facility], [address] COLONOSCOPY PROCEDURE REPORT EXAM DATE: 09/02/2017 PATIENT NAME: Dionicio Kaur MR #: [id number] BIRTHDATE: 1990 ENDOSCOPIST: Domingo Kapadia MD ORDER #: [id number] [facility]: [facility] STATUS: inpatient INDICATIONS: The patient is a 26 yr old male here for a colonoscopy due to constipation PROCEDURE PERFORMED: Ileoscopy MEDICATIONS: None and Per Anesthesia. PREP QUALITY: poor PREP TYPE:Other: PREP TYPE:Other: None ESTIMATED BLOOD LOSS: None CONSENT: The patient understands the risks and benefits of the procedure and understands that these risks include, but are not limited to: sedation, allergic reaction, infection, perforation and/or bleeding. Alternative means of evaluation and treatment include, among others: physical exam, x-rays, and/or surgical intervention. The patient elects to proceed with this endoscopic procedure. medical equipment was checked for proper function. Hand hygiene and appropriate measures for infection prevention was taken. After the risks, benefits and alternatives of the procedure were thoroughly explained, Informed consent was verified, confirmed and timeout was successfully executed by the treatment team. A digital exam was not performed The New [id number] (Std Gastro) endoscope was introduced through the anus and advanced to the cecum, which was identified by both the appendix and ileocecal valve. The instrument was then slowly withdrawn as the colon was fully examined. COLON FINDINGS: A significant amount of stool was present in the proximal ileum and distal ileum. A large sized diffuse circumferential patch of abnormal mucosa was found in the proximal ileum. The mucosa was friable, ulcerated, oozing blood, edematous and congested. 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 Multiple biopsies were performed using cold forceps. Retroflexion was not performed due to a narrow rectal vault The scope was then completely withdrawn from the patient and the procedure terminated. PROCEDURE WITHDRAWAL TIME:10minutes ADVERSE EVENTS: There were no complications. IMPRESSIONS: 1. Significant amount of stool was present in the examined small bowel ( 1 meter from the stoma), no impacted stool seen. 2. Large sized diffuse circumferential abnormal mucosa was found in the proximal ileum 25 cm from the stoma site, The mucosa was friable, ulcerated, oozing blood, edematous and congested; suspecious for ischemia, multiple biopsies were performed using cold forceps RECOMMENDATIONS: Await biopsy results. Biopsy results will not be ready for 7-10 days. If you don't hear from us in two weeks, call our office for results. RECALL: NONE Domingo Kapadia MD eSigned: Domingo Kapadia MD 09/02/2017 12:46 PM cc: PATIENT NAME: Dionicio Kaur MR#: [id number]
[2017-09-02] MEDS: PROPOFOL 1000 MG/100 ML INJ 100 ML IV PRN (13:18)
--- NOTE | 2017-09-02 14:32 | HHI.PR ---
cc: Oliver Dave MD Subjective Subjective Notes Intubated now Mother at bedside Had Ileoscopy today Objective Vitals/I&O Vital Signs Date Time Temp Pulse Resp B/P (MAP) Pulse Ox O2 Delivery O2 Flow Rate FiO2 09/02/17 13:00 100 Mechanical Ventilator 100 09/02/17 10:35 2.00 09/02/17 10:30 97.7 111 24 135/66 (89) Labs Laboratory Tests Test 09/01/17 14:47 09/01/17 15:45 09/01/17 17:23 09/01/17 21:20 Potassium Level 6.1 5.9 5.6 Phosphorus Level 5.2 Magnesium Level 2.7 Thyroid Stimulating Hormone 3rd Gen 10.600 Nasal Screen MRSA (PCR) MRSA DETECTED Free Thyroxine 1.07 Free Triiodothyronine (T3) pg/dL 0.54 Test 09/02/17 04:37 09/02/17 06:45 09/02/17 07:19 09/02/17 09:53 White Blood Count 26.2 Red Blood Count 2.81 Hemoglobin 7.9 Hematocrit 24.2 Mean Corpuscular Volume 85.9 Mean Corpuscular Hemoglobin 28.0 Mean Corpuscular Hemoglobin Concent 32.6 Red Cell Distribution Width 18.4 Platelet Count 155 Mean Platelet Volume 8.4 Neutrophils (%) (Auto) 91.8 Lymphocytes (%) (Auto) 2.1 Monocytes (%) (Auto) 6.0 Eosinophils (%) (Auto) 0.0 Basophils (%) (Auto) 0.1 Neutrophils # (Auto) 24.0 Lymphocytes # (Auto) 0.5 Monocytes # (Auto) 1.6 Eosinophils # (Auto) 0.0 Basophils # (Auto) 0.0 CBC Comment DIFF FINAL Differential Comment Prothrombin Time 17.1 Prothromb Time International Ratio 1.7 Activated Partial Thromboplast Time 28.9 Blood Urea Nitrogen 46 Creatinine 3.63 Random Glucose 143 Total Protein 4.5 Albumin 1.5 Calcium Level 7.9 Phosphorus Level 6.3 Magnesium Level 2.6 Alkaline Phosphatase 273 Aspartate Amino Transf (AST/SGOT) 32 Alanine Aminotransferase (ALT/SGPT) 38 Total Bilirubin 2.0 Sodium Level 143 Potassium Level 6.3 Chloride Level 112 Carbon Dioxide Level 20.0 Anion Gap 11 Estimat Glomerular Filtration Rate 21 Lactic Acid Level 3.2 Ammonia 284 Blood Gas Puncture Site LT BRACHIAL LT BRACHIAL Blood Gas Patient Temperature 98.6 98.6 Blood Gas HCO3 22 19 Blood Gas Base Excess -0.9 -4.1 Blood Gas Oxygen Saturation 92 86 Arterial Blood pH 7.50 7.44 Arterial Blood Partial Pressure CO2 28 29 Arterial Blood Partial Pressure O2 66 59 Arterial Blood Oxygen Content 9.0 7.9 Arterial Blood Carboxyhemoglobin 2.4 2.2 Arterial Blood Methemoglobin 1.0 1.0 Blood Gas Hemoglobin 6.9 6.4 Blood Gas Inspired Oxygen 21 21 Test 09/02/17 10:30 Blood Urea Nitrogen 45 Creatinine 3.59 Random Glucose 180 Total Protein 4.3 Albumin 1.8 Calcium Level 7.6 Alkaline Phosphatase 216 Aspartate Amino Transf (AST/SGOT) 27 Alanine Aminotransferase (ALT/SGPT) 32 Total Bilirubin 1.8 Sodium Level 145 Potassium Level 6.3 Chloride Level 114 Carbon Dioxide Level 19.9 Anion Gap 11 Estimat Glomerular Filtration Rate 21 Lactic Acid Level 4.7 Cardiovascular: Regular Lungs: Clear Abdomen: Other (distended ) Extremities: No edema A/P Assessment and Plan 26 year old male with multiple medical problems (cystic fibrosis s/p lung transplant; metabolic encephalopathy; acute renal failure) -s/p ileoscopy---- friable mucosa suspicious for ischemia -Now intubated---vent per CCM -Spoke with Mother Jyotsna--- making arrangements now for transport to [facility] in [place] Attending Statement patient seen at bedside patient with multiple comorbidities scope shows concern for ischemia family insisting transfer to [facility] They understand the severity of this situation and are not wanting surgery here at [facility] at this time will plan for transfer and will be available if needed Attestation The exam, history, and the medical decision-making described in the above note were completed with the assistance of the mid-level provider. I reviewed and agree with the findings presented. I attest that I had a [id number] encounter with the patient on the same day, and personally performed and documented my assessment and findings in the medical record. Ana Kraus/First Markus ADLER Sep 02, 2017 14:32 Oliver Dave MD Sep 06, 2017 21:19
[2017-09-02] MEDS: PIPERACIL-TAZO 2.25 GM PREMIX 50 ML IV SCH ×2 (14:49→23:26)
--- NOTE | 2017-09-02 14:59 | HHI.DS ---
Discharge Summary Admission Date Sep 01, 2017 at 11:52 Admitting Diagnosis bowel obstruction with fecal impaction, hyperkalemia, ENOCH, dehydrati (1) Small bowel obstruction ICD Code: K56.609 - Unspecified intestinal obstruction, unspecified as to partial versus complete obstruction Diagnosis: Principal (2) Acute kidney injury ICD Code: N17.9 - Acute kidney failure, unspecified Diagnosis: Principal Status: Acute (3) Hyperammonemia ICD Code: E72.20 - Disorder of urea cycle metabolism, unspecified Diagnosis: Principal Status: Acute (4) Inflammation of ileum Diagnosis: Principal (5) Acute hypoxemic respiratory failure ICD Code: J96.01 - Acute respiratory failure with hypoxia (6) Sepsis ICD Code: A41.9 - Sepsis, unspecified organism (7) Hyperkalemia ICD Code: E87.5 - Hyperkalemia Status: Acute (8) DM (diabetes mellitus) ICD Code: E11.9 - Type 2 diabetes mellitus without complications Diagnosis: Secondary Status: Chronic (9) Immunosuppressed status ICD Code: D89.9 - Disorder involving the immune mechanism, unspecified Diagnosis: Secondary Status: Chronic (10) Cystic fibrosis ICD Code: E84.9 - Cystic fibrosis, unspecified Diagnosis: Secondary Status: Chronic (11) Thrombocytopenia ICD Code: D69.6 - Thrombocytopenia, unspecified Diagnosis: Secondary (12) History of lung transplant ICD Code: Z94.2 - Lung transplant status Diagnosis: Secondary (13) S/P TIPS (transjugular intrahepatic portosystemic shunt) ICD Code: Z95.828 - Presence of other vascular implants and grafts Diagnosis: Secondary (14) Port-a-cath in place ICD Code: Z95.828 - Presence of other vascular implants and grafts Diagnosis: Secondary (15) Chronic kidney disease (CKD), stage III (moderate) ICD Code: N18.3 - Chronic kidney disease, stage 3 (moderate) Diagnosis: Secondary (16) Gastroesophageal reflux disease ICD Code: K21.9 - Gastro-esophageal reflux disease without esophagitis Diagnosis: Secondary (17) Pancreatic insufficiency due to cystic fibrosis ICD Code: E84.19 - Cystic fibrosis with other intestinal manifestations Diagnosis: Secondary (18) Cirrhosis ICD Code: K74.60 - Unspecified cirrhosis of liver Diagnosis: Principal (19) Depression ICD Code: F32.9 - Major depressive disorder, single episode, unspecified Diagnosis: Secondary (20) Pleural drain in place Diagnosis: Secondary (21) Ileostomy, has currently ICD Code: Z93.2 - Ileostomy status Diagnosis: Secondary (22) Hypoalbuminemia ICD Code: E88.09 - Other disorders of plasma-protein metabolism, not elsewhere classified Diagnosis: Principal Brief History This is a 26-year-old male. Date of admission 09/01/2017. 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 He also has a history of a Pleurx catheter right- sided for chronic pleural effusion. Patient presents to [facility] with family with 12 hour history of acute increasing abdominal pain, distention, decreased ileostomy output. The patient was slightly confused last night, had multiple doses of lactulose, but continues to have poor ileostomy output. The patient has had multiple abdominal surgeries in the past including for intestinal atresia at in [place] and a recent ileostomy in June 2016 at [facility] in [place].. There are no current alleviating factors. No associated fever. The patient does have a history of chronic right pleural effusions, has a chronic Pleurx catheter drain ~ 1000 cc of the fluid this morning. Workup included baseline laboratories. White blood cell count within normal limits. Hemoglobin 7. Potassium was 6.5 which received D50/insulin and bicarbonate with recheck pending. Ammonia levels 243. Creatinine 3.1 which is above his baseline. Patient received normal saline infusion and a CT was performed of the abdomen/pelvis revealed gastric distention/fluid with appears to be fecal impaction versus obstruction in the small bowel with dilatation duodenum/jejunum. No transition zone. Collapsed colon distal. Right lower quadrant ileostomy site. Pancreatic calcification which are chronic with moderate bilateral pleural effusions. CBC/BMP: 09/02/17 0437 09/02/17 1030 Significant Findings Laboratory Tests Test 09/01/17 09:10 09/01/17 11:47 09/01/17 14:15 09/01/17 14:47 Red Blood Count 2.41 MIL/MM3 (4.50-5.90) Hemoglobin 6.9 GM/DL (13.0-17.0) Hematocrit 20.8 % (39.0-51.0) Red Cell Distribution Width 18.3 % (11.6-17.2) Platelet Count 102 TH/MM3 (150-450) Neutrophils (%) (Auto) 81.9 % (16.0-70.0) Lymphocytes # (Auto) 0.8 TH/MM3 (1.0-4.8) Blood Urea Nitrogen 43 MG/DL (7-18) Creatinine 3.08 MG/DL (0.60-1.30) Random Glucose 178 MG/DL (74-106) Total Protein 4.8 GM/DL (6.4-8.2) Albumin 1.6 GM/DL (3.4-5.0) Calcium Level 7.3 MG/DL (8.5-10.1) Alkaline Phosphatase 274 U/L (45-117) Total Bilirubin 1.4 MG/DL (0.2-1.0) Potassium Level 6.5 MEQ/L (3.5-5.1) 6.1 MEQ/L (3.5-5.1) Chloride Level 109 MEQ/L (98-107) Carbon Dioxide Level 19.9 MEQ/L (21.0-32.0) Estimat Glomerular Filtration Rate 25 ML/MIN (>89) Ammonia 243 MCMOL/L (11-32) Lipase 36 U/L (73-393) Prothrombin Time 14.7 SEC (9.8-11.6) Phosphorus Level 5.2 MG/DL (2.5-4.9) Magnesium Level 2.7 MG/DL (1.5-2.5) Thyroid Stimulating Hormone 3rd Gen 10.600 uIU/ML (0.358-3.740) Test 09/01/17 15:45 09/01/17 17:23 09/01/17 21:20 09/02/17 04:37 Potassium Level 5.9 MEQ/L (3.5-5.1) 5.6 MEQ/L (3.5-5.1) 6.3 MEQ/L (3.5-5.1) Free Triiodothyronine (T3) pg/dL 0.54 PG/ML (2.18-3.98) White Blood Count 26.2 TH/MM3 (4.0-11.0) Red Blood Count 2.81 MIL/MM3 (4.50-5.90) Hemoglobin 7.9 GM/DL (13.0-17.0) Hematocrit 24.2 % (39.0-51.0) Red Cell Distribution Width 18.4 % (11.6-17.2) Neutrophils (%) (Auto) 91.8 % (16.0-70.0) Lymphocytes (%) (Auto) 2.1 % (9.0-44.0) Neutrophils # (Auto) 24.0 TH/MM3 (1.8-7.7) Lymphocytes # (Auto) 0.5 TH/MM3 (1.0-4.8) Monocytes # (Auto) 1.6 TH/MM3 (0-0.9) Prothrombin Time 17.1 SEC (9.8-11.6) Blood Urea Nitrogen 46 MG/DL (7-18) Creatinine 3.63 MG/DL (0.60-1.30) Random Glucose 143 MG/DL (74-106) Total Protein 4.5 GM/DL (6.4-8.2) Albumin 1.5 GM/DL (3.4-5.0) Calcium Level 7.9 MG/DL (8.5-10.1) Phosphorus Level 6.3 MG/DL (2.5-4.9) Magnesium Level 2.6 MG/DL (1.5-2.5) Alkaline Phosphatase 273 U/L (45-117) Total Bilirubin 2.0 MG/DL (0.2-1.0) Chloride Level 112 MEQ/L (98-107) Carbon Dioxide Level 20.0 MEQ/L (21.0-32.0) Estimat Glomerular Filtration Rate 21 ML/MIN (>89) Lactic Acid Level 3.2 mmol/L (0.4-2.0) Ammonia 284 MCMOL/L (11-32) Test 09/02/17 06:45 09/02/17 07:19 09/02/17 09:53 09/02/17 10:30 Arterial Blood pH 7.50 (7.380-7.420) 7.44 (7.380-7.420) Arterial Blood Partial Pressure CO2 28 mmHg (38-42) 29 mmHg (38-42) Arterial Blood Oxygen Content 9.0 Vol % (12.0-20.0) 7.9 Vol % (12.0-20.0) Blood Gas Hemoglobin 6.9 G/DL (12.0-16.0) 6.4 G/DL (12.0-16.0) Blood Gas HCO3 19 mmol/L (22-26) Blood Gas Base Excess -4.1 mmol/L (-2-2) Blood Gas Oxygen Saturation 86 % (90-100) Arterial Blood Partial Pressure O2 59 mmHg (61-120) Blood Urea Nitrogen 45 MG/DL (7-18) Creatinine 3.59 MG/DL (0.60-1.30) Random Glucose 180 MG/DL (74-106) Total Protein 4.3 GM/DL (6.4-8.2) Albumin 1.8 GM/DL (3.4-5.0) Calcium Level 7.6 MG/DL (8.5-10.1) Alkaline Phosphatase 216 U/L (45-117) Total Bilirubin 1.8 MG/DL (0.2-1.0) Potassium Level 6.3 MEQ/L (3.5-5.1) Chloride Level 114 MEQ/L (98-107) Carbon Dioxide Level 19.9 MEQ/L (21.0-32.0) Estimat Glomerular Filtration Rate 21 ML/MIN (>89) Lactic Acid Level 4.7 mmol/L (0.4-2.0) Imaging CT of the abdomen pelvis showed severe ileus versus fecal impaction in the distal ileum PE at Discharge GENERAL: 26-year-old male resting in bed lethargic, tachypneic moderate distress secondary to abdominal pain SKIN: Warm and dry. HEAD: Atraumatic. Normocephalic. EYES: Pupils equal and round around 3 mm bilaterally and reactive. No scleral icterus. No injection or drainage. ENT: No nasal bleeding or discharge. Mucous membranes very dry NECK: Trachea midline. No JVD. CARDIOVASCULAR: Tachycardic rate and rhythm. S1, S2 no S4. Without murmur RESPIRATORY: Diminished breath sounds bilateral posterior lung abdi. No wheezing. GASTROINTESTINAL: Abdomen protuberant and distended, tender to palpation. Prior left upper quadrant scar from G-tube well-healed. Large old incision scar over left upper/right upper quadrant. Ileostomy site with pink mucosa with pinkish red stool output, 150 ml since admission. High-pitched bowel sounds right upper quadrant. MUSCULOSKELETAL: Extremities with 1+ peripheral edema. No obvious deformities. NEUROLOGICAL: Lethargic, mumbles few words. Withdraws to pain Transfer Summary 26-year-old male with medical history of cystic fibrosis s/p double lung transplant at [facility], diabetes mellitus on insulin pump, end- stage liver disease on transplant list, portal hypertension with a history of TIPS, hepatic encephalopathy on rifaximin and lactulose chronically and history of ileostomy June 2016. He also has a history of a Pleurx catheter right- sided for chronic pleural effusion. Patient presents to [facility] with 12 hour history of acute increasing abdominal pain, distention, decreased ileostomy output. The patient was slightly confused last night, had multiple doses of lactulose, but continues to have poor ileostomy output. The patient has had multiple abdominal surgeries in the past including for intestinal atresia at in [place] and a recent ileostomy in June 2016 at [facility] in [place]. White blood cell count within normal limits. Hemoglobin 7. Potassium was 6.5 which received D50/insulin and bicarbonate with recheck pending. Ammonia levels 243. Creatinine 3.1 which is above his baseline. Patient received normal saline infusion and a CT was performed of the abdomen/ pelvis revealed gastric distention/fluid with appears to be fecal impaction versus obstruction in the small bowel with dilatation duodenum/jejunum. No transition zone. Collapsed colon distal. Right lower quadrant ileostomy site. Pancreatic calcification which are chronic with moderate bilateral pleural effusions. GI and general surgery were consulted SUBJ 09/02: Patient is more critically ill, abdomen distended and more tender. Creat worse 3.08 to 3.67. Overnight UO approximately 350 ml. Lactic acid increased to 3.2, ammonia 284. WBC 26.2 today, check C Diff, start empiric Flagyl. Discussed with Dr. Dave general surgeon and Dr. Regan GI. Also stat CT abd unchanged from yesterday. Patient underwent ileoscopy by Dr. Regan. He was intubated prior to ileoscopy due to hypoxia and questionable airway protection and risk of aspiration. Finding: Large sized diffuse circumferential abnormal mucosa was found in the proximal ileum 25 cm from the stoma site, mucosa was friable, ulcerated, oozing blood, edematous. findings suspicious for ischemia. Multiple biopsies taken. Family requested transfer to [facility], Case management consulted. Family updated several times. I have discussed with Dr. Pepe at [facility]. He will arrange for ICU to ICU transfer. Patient will be sent by air ambulance Pt Condition on Discharge: Deteriorating Discharge Disposition: Disch to Another Hospital Discharge Instructions DIET: Follow Instructions for: Nothing By Mouth Activities you can perform: Continue Bedrest New Medications: Metronidazole (Flagyl) 500 Mg Tab 500 MG PO TID for COLITIS for 10 Days, #30 TAB 0 Refills Piperacillin-Tazobactam Inj (Zosyn Inj) 2.25 Gram Inj 2.25 GM IV Q8H for Infection for 10 Days, #30 BAG 0 Refills Hydrocortisone Inj (Solu-Cortef Inj) 100 Mg/2 Ml Inj 100 MG IV PUSH Q8HR for chronic steroid use for 10 Days, #30 INJECTION Hydromorphone (Hydromorphone Dosette) 2 Mg/Ml Inj 0.5 MG IV PUSH Q4H PRN for pain 1-5 for 5 Days, #10 INJECTION Tacrolimus (Prograf) 0.5 Mg Cap 0.5 MG PO DAILY@18 for anti rejection for 30 Days, #30 CAP Tacrolimus (Prograf) 1 Mg Cap 1 MG PO DAILY@06 for anti rejection for 30 Days, #30 CAP Continued Medications: Ergocalciferol (Ergocalciferol) 50,000 Unit Cap 52137 UNITS PO Q7D for Nutritional Supplement, #30 CAP 0 Refills Escitalopram (Lexapro) 5 Mg Tab 5 MG PO DAILY, #30 TAB 0 Refills Insulin Aspart Inj (Novolog Inj) 1,000 Unit/10 Ml Vial 0 SQ DIRECTED for Blood Sugar Management, #10 ML 0 Refills Sliding Scale as directed. Lactulose Liq (Lactulose Liq) 10 Gm/15 Ml Soln 30 ML PO TID, ML 0 Refills Mycophenolate (Cellcept) 500 Mg Tab 500 MG PO BID for Immunosuppression, #120 TAB 0 Refills Pancrelipase (Creon) 36,000-114,000-180,000 Units Cap 1 CAP PO TIDPC for Digestive Aid, #90 CAP 0 Refills Pancrelipase (Creon) 24,000-76,000-120,000 Units Cap 1 CAP PO TIDPC for Digestive Aid, #90 CAP 0 Refills Pantoprazole (Protonix) 40 Mg Tab 40 MG PO BID for Reflux, #30 TAB 0 Refills Prednisone (Prednisone) 10 Mg Tab 10 MG PO DAILY, TAB 0 Refills Rifaximin (Xifaxan) 550 Mg Tab 550 MG PO Q12HR for Hepatic encephalopathy, #60 TAB 0 Refills Ursodiol (Ursodiol) 300 Mg Cap 300 MG PO BID for Gallstones, #60 CAP 0 Refills Discontinued Medications: Furosemide (Furosemide) 40 Mg Tab 40 MG PO DAILY, #30 TAB 0 Refills Delia Canchola MD Sep 02, 2017 14:59
--- NOTE | 2017-09-02 15:51 | MB ---
cc: Billy Kendrick MD DATE OF CONSULT: 09/02/2017 REQUESTING PHYSICIAN: Dr. Canchola REASON: Sepsis. HISTORY OF PRESENT ILLNESS: This is a 26-year-old white male who was brought to the emergency department after he started feeling ill with increasing abdominal pain which began suddenly along with abdominal distention and decreased output from his ileostomy tube. The patient has a history of cystic fibrosis. He is status post double lung transplant and plans area for liver transplant for liver failure as well. The patient's mother states that he had a large dinner on the night before admission. He had no diarrhea or vomiting until he appeared for evaluation here and he had one episode of vomiting. He had CT scan of the abdomen and pelvis which showed obstructive gas pattern with marked dilatation of the stomach and small bowel. Distention probably due to impaction was noted as a possibility. He also was found to have bilateral pleural effusion and bibasilar air space disease. Further workup was performed and he underwent colonoscopy via his ileostomy and he was felt to have a significant amount of stool in the proximal ileum and distal ileum and a large diffuse circumferential patch of abnormal mucosa in the proximal ileum. The mucosa was noted to be friable and also and oozing some blood. The possibility of high ischemic colitis was entertained. Biopsies were performed. Because of the patient's very serious illness, plans are to transfer him to [facility] where he is on the list for transplantation. Blood and urine cultures have been obtained. The patient's white blood cell count was normal at 8.7 yesterday and today the white count is 26.2 with 91% neutrophils. He also had elevated lactic acid which is high at 4.7 today. His estimated GFR is 21. Currently he is on the ventilator. He was kept on the ventilator after the procedure. He is on 100% FIO2. His blood pressure systolic is 120. His heart rate is 111. He is afebrile. He has an NG tube which was placed for decompression of the abdomen. There is straw-colored NG return. The patient also had some oral secretions which looked thick and viscous and brown and looks like medications which were administered earlier. The family notes that his ileostomy was functioning normally before he was first admitted to the emergency department. He has had no complaints of fever or chills. Mom mentioned that the patient himself is the one who wanted to be taken to the hospital for evaluation of the abdominal pain. ALLERGIES: VANCOMYCIN. MEDICATIONS: 1. Metronidazole. 2. Propofol. 3. Lexapro. 4. Protonix. 5. Tacrolimus. 6. CellCept. 7. Rifaximin. 8. Ursodiol. 9. Sharron-Colace. 10. Insulin. 11. Hydrocortisone. 12. Lactulose. 13. Creon. PAST MEDICAL HISTORY: 1. Double lung transplant. 2. Cystic fibrosis. 3. Liver cirrhosis. 4. Pancreatic insufficiency. 5. Diabetes mellitus. 6. Hypertension. 7. Depression. 8. Chronic kidney disease, stage III-A. 9. Gastroesophageal reflux disease. 10. Osteoporosis. 11. Recurrent pleural effusion. 12. Infusaport placement. 13. Insulin pump. 14. Ileostomy. SOCIAL HISTORY: No tobacco, alcohol or illicit drugs. FAMILY HISTORY: Noncontributory. REVIEW OF SYSTEMS: Unable to obtain. The patient is on ventilator. PHYSICAL EXAMINATION: GENERAL: This is a petite frame male who is on the ventilator, sedated and in no acute distress. VITAL SIGNS: Temperature 97.7, blood pressure 120 systolic, heart rate 111, respirations per ventilator. HEENT: Not able to fully assess since the patient cannot cooperate. The sclerae are not icteric. Oropharynx intubated. NECK: No adenopathy. LUNGS: Clear breath sounds which are slightly decreased at the bases. HEART: Tachycardic. Systolic murmur at the left sternal border. ABDOMEN: Distended. Very scant bowel sounds. Ileostomy tube has small amount of light chocolate brown liquid. : Normal genitalia. RECTAL: Not performed. EXTREMITIES: 1+ edema of both lower extremities. No clubbing or cyanosis. SKIN: No diffuse rash. NEUROLOGIC: Unable to assess. PSYCH: Unable to assess. LABORATORY DATA: WBC 26.2, platelets 165, hemoglobin 7.9, 91% neutrophils. Creatinine 3.59, BUN 45, estimated GFR of 21, sodium 145, AST 27, ALT 32, alkaline phosphatase 216, total bilirubin 1.8. IMPRESSION: 1. Possible sepsis. 2. Abdominal pain. Patient with leukocytosis and increased lactic acid. Possible ischemic bowel. 3. Immunosuppressed state. Patient on medications for double lung transplant. 4. Liver cirrhosis. The patient is being evaluated for possible liver transplantation. 5. Acute kidney disease. The patient with known chronic kidney disease. RECOMMENDATIONS: 1. Continue metronidazole. 2. Add piperacillin/tazobactam for extended coverage for gram-negative bacteria. 3. Follow the white blood cell count. 4. Follow the blood cultures. 5. Monitor the clinical status. Thank you for this consultation. The progress of the patient will be monitored closely and further recommendations will be given on followup or depending on laboratory or clinical findings. MD NAYAN Castro/BRYON/rr , 02:16 PM , 02:49 PM
--- NOTE | 2017-09-02 16:15 | PD.CONS ---
Consult Service Palliative Care Consult Requested By Dr. Canchola . Primary Care Physician Mando Fuentes MD . Reason for Consultation a. To assist with evaluation and management of symptoms including: Encephalopathy, pain b. To assist medical decision maker(s) with: better understanding of current medical conditions; weighing benefits/burdens of medical treatment options; making medical treatment decisions. . HPI History of Present Illness This 26-year-old male, with a past history of cystic fibrosis, double lung transplant in 2014, hepatic cirrhosis, recurrent GI bleeding, recurrent episodes of hepatic encephalopathy, chronic anemia, and chronic kidney disease, has been hospitalized many times over the last few years. Most recently, he was admitted here for GIP bleeding in May 2016, admitted here again in February 2017 with GI bleeding and was transferred to [facility], admitted in [place] in March 2017 with pneumonia and transferred to [place] and then transferred to [facility] in May, and admitted to our emergency department again on 07/14/17 with encephalopathy and creatinine 2.18 and transferred again to [facility]. The patient was brought back to the emergency department on 09/01/17 because of abdominal pain and distention as well as evidence of encephalopathy again. In the emergency department, findings included: * Lethargic, encephalopathic * Temp 98.7, pulse 96, respirations 18, oxygen saturation 98% on room air * White count 8.7, hemoglobin 6.9 * Sodium 138, creatinine 3.08, potassium 6.5, albumin 1.6 * Ammonia 243 * Abdomen/pelvis CT with evidence of small bowel obstruction but no cutoff point , dilated stomach, bilateral pleural effusions * Chest x-ray with "chronic interstitial alveolar disease" The patient was admitted, NG tube decompression was initiated. A colonoscopy was undertaken on 09/02/17 and it revealed large amounts of stool as well as and inflamed friable area of the proximal ileum that appears suspicious for ischemia. On 09/02/17, the abdomen was more distended, the creatinine was up to 3.67, white count 26, and ammonia 284. The patient's parents were considering a transition to comfort care; however, [facility] has agreed to take the patient in transfer and they consented to intubation to keep the patient stable enough for the transfer. They tell me that "his last shot" his 2 receive several organs (liver, pancreas, kidney, bowel) in a multiorgan transplant procedure, and [facility] is where that has been done. If that is not available to him, they will transition to comfort care, understanding that he would be dying relatively soon. Palliative Care was consulted to assist with symptom management, and to enter into discussions with the patient's family regarding his illnesses, the prognosis, and the benefits and burdens of the various treatment choices. . Function/Cognitive Trajectory The patient was independently ambulatory and provided his own self-care at home , and he was driving a car at times. . Review of Systems ROS Limitations: Clinical Condition (history per parents and staff), Intubated , Unresponsive Constitutional: DENIES: Fever, Weight loss Endocrine: DENIES: Polyuria Eyes: DENIES: Eye inflammation Ears, nose, mouth, throat: DENIES: Epistaxis Respiratory: COMPLAINS OF: Shortness of breath Cardiovascular: DENIES: Chest pain, Syncope Gastrointestinal: COMPLAINS OF: Abdominal pain, Constipation, Vomiting (2 days prior to admission), DENIES: Black stools, Diarrhea Genitourinary: DENIES: Hematuria Musculoskeletal: DENIES: Joint Swelling Integumentary: DENIES: Rash Hematologic/Lymphatics: DENIES: Bruising Immunologic/Allergic: DENIES: Urticaria Neurologic: DENIES: Localized weakness, Paresthesias, Seizures Psychiatric: DENIES: Hallucinations, Agitation Past Family Social History Coded Allergies: vancomycin (Verified Adverse Reaction, Intermediate, 07/14/17) *MDRO Multi-Drug Resistant Organism (Verified Adverse Reaction, Unknown, ) MRSA PCR Screen (nares) Positive 05/28/16 Past Medical History History of liver cirrhosis, worsening failure Cystic fibrosis, with multiple organ involvement Pancreatic insufficiency Recurrent GI bleeding Anemia Thrombocytopenia Diabetes mellitus Hypertension/pulmonary History depression Chronic kidney disease stage IIIa Hyperammonia, hepatic encephalopathy Gastroesophageal reflux disease Osteoporosis Recurrent pleural effusions . Past Surgical History History of double lung transplant in 2014 TIPS Right [id number] Insulin pump History of G-tube since removed Ileostomy Pleurx catheter right chest 2017 . Reported Medications Reported Meds & Active Scripts Active Reported Lactulose Liq (Lactulose) 10 Gm/15 Ml Soln 30 Ml PO TID Novolog Inj (Insulin Aspart) 1,000 Unit/10 Ml Vial 0 SQ DIRECTED Sliding Scale as directed. Xifaxan (Rifaximin) 550 Mg Tab 550 Mg PO Q12HR Lexapro (Escitalopram Oxalate) 5 Mg Tab 5 Mg PO DAILY Cellcept (Mycophenolate Mofetil) 500 Mg Tab 500 Mg PO BID Ursodiol 300 Mg Cap 300 Mg PO BID Protonix (Pantoprazole Sodium) 40 Mg Tab 40 Mg PO BID Creon (Amylase/Lipase/Protease) 24,000-76,000-120,000 Units Cap 1 Cap PO TIDPC Creon (Pancrelipase) 36,000-114,000-180,000 Units Cap 1 Cap PO TIDPC Ergocalciferol 50,000 Unit Cap 50,000 Units PO Q7D Furosemide 40 Mg Tab 40 Mg PO DAILY Prednisone 10 Mg Tab 10 Mg PO DAILY . Current Medications Medications (Trade) Dose Ordered Sig/Cindy Route Start Time Stop Time Status Last Admin (Lexapro) 5 mg DAILY PO 09/02/17 09:00 (Lactulose Liq) 30 ml TID PO 09/01/17 13:00 09/02/17 14:04 (Cellcept) 500 mg BID PO 09/01/17 21:00 09/01/17 20:27 (Creon 24-76-120) 1 cap TIDPC PO 09/01/17 13:30 (Xifaxan) 550 mg Q12HR PO 09/01/17 21:00 09/02/17 09:22 (Actigall) 300 mg BID PO 09/01/17 21:00 09/02/17 09:47 (NS Flush) 2 ml UNSCH PRN IV FLUSH 09/01/17 12:00 (NS Flush) 2 ml BID IV FLUSH 09/01/17 21:00 09/02/17 09:23 (Protonix Inj) 40 mg DAILY IV PUSH 09/02/17 09:00 09/02/17 09:22 (Tears Naturale Opth Soln) 1 drop TID EACH EYE 09/01/17 13:00 09/02/17 09:23 (Zofran Inj) 4 mg Q6H PRN IV PUSH 09/01/17 12:00 (Albuterol Neb) 2.5 mg Q2HR NEB PRN INH 09/01/17 12:00 09/02/17 11:00 Miscellaneous Information 1 Q361D XX 09/01/17 12:00 (Chlorhexidine 2% Cloth) 3 pack Taper DAILY@04 TOP 09/02/17 04:00 08/29/18 03:59 (Chlorhexidine 2% Cloth) 3 pack UNSCH PRN TOP 09/01/17 12:00 (Sharron-Colace) 1 tab BID PO 09/01/17 21:00 09/02/17 09:22 (Milk Of Magnesia Liq) 30 ml Q12H PRN PO 09/01/17 12:00 (Senokot) 17.2 mg Q12H PRN PO 09/01/17 12:00 (Dulcolax Supp) 10 mg DAILY PRN RECTAL 09/01/17 12:00 (Lactulose Liq) 30 ml DAILY PRN PO 09/01/17 12:00 (SoluCORTEF INJ) 100 mg Q8HR IV PUSH 09/01/17 14:00 09/02/17 14:05 (Dilaudid Pf Inj) 1 mg Q4H PRN IV PUSH 09/01/17 14:00 (Dilaudid Pf Inj) 0.5 mg Q4H PRN IV PUSH 09/01/17 14:00 (D50w (Vial) Inj) 50 ml UNSCH PRN IV PUSH 09/01/17 14:00 (Glucagon Inj) 1 mg UNSCH PRN OTHER 09/01/17 14:00 (NovoLIN R SUPPLEMENTAL SCALE) 1 Q4HR SQ 09/01/17 16:00 09/02/17 14:11 (Prograf) 1 mg DAILY@06 PO 09/02/17 06:00 09/02/17 06:00 (Prograf) 0.5 mg DAILY@18 PO 09/01/17 18:00 09/01/17 18:50 (Bactroban Nasal 2% Oint) 1 applic Taper BID EACH NARE 09/02/17 09:00 08/29/18 08:59 09/02/17 09:21 Metronidazole 100 ml @ 100 mls/hr Q8H IV 09/02/17 08:00 09/02/17 09:23 Albumin Human 100 ml @ 60 mls/hr Q8H IV 09/02/17 08:00 09/02/17 07:27 Sodium Bicarbonate 75 meq/Sodium Chloride 1,075 ml @ 125 mls/hr Q8H36M IV 09/02/17 08:00 09/02/17 09:46 (Peridex 0.12% Liq) 15 ml BID@08,20 MT 09/02/17 20:00 Propofol 100 ml @ 1.788 mls/ hr TITRATE PRN IV 09/02/17 12:45 09/02/17 13:18 Vasopressin 40 units/Dextrose 100 ml @ 6 mls/hr [id number] IV 09/02/17 12:45 Piperacillin Sod/ Tazobactam Sod 50 ml @ 100 mls/hr Q8H IV 09/02/17 15:00 09/02/17 14:49 Family History The patient's father of liver cirrhosis reportedly secondary to alcohol. His sister is alive and well. . Substance Use Tobacco: None Alcohol: None Prescription med abuse: None Illicits: None . Psychosocial History Born and raised in [place], moved to [place] in 2012 with family. Not , no children. Finished high school. Worked for a little while after his lung transplant for a local [email or web address]. . Spiritual/Cultural Factors Believes in God but not associated with any particular denomination or clergy. . Living Will: Never completed Health Care Surrogate: Never completed Durable Power of Cigarette Machines Mechanic: Never completed Family/friends goals: The patient's mother and stepfather were considering a transition to comfort measures; however, when [facility] accepted the patient in transfer with the possibility of a multiorgan transplant, the consented to intubation to ensure her more stability for the transfer. They note that, if the definitive multiorgan transplant cannot occur, they will return to a comfort focus and engage hospice services. . Ethical and Legal Issues There are no ethical issues that would impact his care or decision-making at this time. The patient lacks capacity for decision-making; his parents are healthcare proxies. . Physical Exam Vital Signs Date Time Temp Pulse Resp B/P (MAP) Pulse Ox O2 Delivery O2 Flow Rate FiO2 09/02/17 14:47 100 50 09/02/17 14:45 50 09/02/17 13:00 100 Mechanical Ventilator 100 09/02/17 13:00 100 100 09/02/17 13:00 100 09/02/17 12:00 112 20 128/59 (82) 96 09/02/17 11:30 111 22 131/60 (83) 95 09/02/17 11:00 110 26 125/58 (80) 94 09/02/17 10:35 96 Nasal Cannula 2.00 09/02/17 10:30 97.7 111 24 135/66 (89) 96 09/02/17 08:06 98 21 09/02/17 07:00 98 Room Air 09/02/17 06:00 113 09/02/17 04:00 97.4 110 19 130/58 (82) 97 09/02/17 04:00 110 09/02/17 02:00 109 09/02/17 00:00 97.7 110 23 108/56 (73) 98 09/02/17 00:00 110 09/01/17 22:00 109 09/01/17 20:00 97.5 105 20 123/87 (99) 99 09/01/17 20:00 99 Room Air 09/01/17 20:00 105 09/01/17 18:00 105 09/01/17 17:16 97 21 09/01/17 16:27 96 Room Air 09/01/17 16:00 102 09/01/17 16:00 97.3 102 23 124/60 (81) 94 09/02/17 09/03/17 19:00 07:00 Intake Total 1507 ml Output Total 75 ml Balance 1432 ml IV Total 1207 ml Other 300 ml Stool Total 75 ml Exam CONSTITUTIONAL/GENERAL: This is a chronically ill-appearing patient, in no apparent distress. TUBES/LINES/DRAINS: Endotracheal tube, SCDs, Crockett, IV access SKIN: No jaundice, rashes, or lesions. Ecchymoses on upper extremities. No wounds seen anteriorly. Skin temperature appropriate. Not diaphoretic. HEAD: Atraumatic. Normocephalic. EYES: Pupils equal and round and reactive. No scleral icterus. No injection or drainage. Fundi not examined. ENT: Nose without bleeding or purulent drainage. NECK: Trachea midline. Supple, nontender. No palpable thyroid enlargement or nodularity. CARDIOVASCULAR: Regular rate and rhythm without murmurs, gallops, or rubs. No JVD. Peripheral pulses symmetric. RESPIRATORY/CHEST: Symmetric, unlabored respirations. Diminished breath sounds , a couple rhonchi. GASTROINTESTINAL: Abdomen soft, moderately distended. No hepato-splenomegaly, or palpable masses. No guarding. I do not hear any bowel sounds GENITOURINARY: Without palpable bladder distension. Crockett catheter in place. MUSCULOSKELETAL: Extremities without clubbing, cyanosis. There is 1-2+ edema bilateral. No joint tenderness or effusion noted. No mottling or clubbing. LYMPHATICS: No palpable cervical or supraclavicular adenopathy. NEUROLOGICAL: Unresponsive PSYCHIATRIC: Unable to assess due to clinical condition . Diagnostic Tests Laboratory Laboratory Tests Test 09/01/17 09:10 09/01/17 11:47 09/01/17 14:15 09/01/17 14:47 White Blood Count 8.7 TH/MM3 (4.0-11.0) Red Blood Count 2.41 MIL/MM3 (4.50-5.90) Hemoglobin 6.9 GM/DL (13.0-17.0) Hematocrit 20.8 % (39.0-51.0) Mean Corpuscular Volume 86.1 FL (80.0-100.0) Mean Corpuscular Hemoglobin 28.6 PG (27.0-34.0) Mean Corpuscular Hemoglobin Concent 33.2 % (32.0-36.0) Red Cell Distribution Width 18.3 % (11.6-17.2) Platelet Count 102 TH/MM3 (150-450) Mean Platelet Volume 8.1 FL (7.0-11.0) Neutrophils (%) (Auto) 81.9 % (16.0-70.0) Lymphocytes (%) (Auto) 9.2 % (9.0-44.0) Monocytes (%) (Auto) 7.9 % (0.0-8.0) Eosinophils (%) (Auto) 0.9 % (0.0-4.0) Basophils (%) (Auto) 0.1 % (0.0-2.0) Neutrophils # (Auto) 7.1 TH/MM3 (1.8-7.7) Lymphocytes # (Auto) 0.8 TH/MM3 (1.0-4.8) Monocytes # (Auto) 0.7 TH/MM3 (0-0.9) Eosinophils # (Auto) 0.1 TH/MM3 (0-0.4) Basophils # (Auto) 0.0 TH/MM3 (0-0.2) CBC Comment DIFF FINAL Differential Comment Blood Urea Nitrogen 43 MG/DL (7-18) Creatinine 3.08 MG/DL (0.60-1.30) Random Glucose 178 MG/DL (74-106) Total Protein 4.8 GM/DL (6.4-8.2) Albumin 1.6 GM/DL (3.4-5.0) Calcium Level 7.3 MG/DL (8.5-10.1) Alkaline Phosphatase 274 U/L (45-117) Aspartate Amino Transf (AST/SGOT) 36 U/L (15-37) Alanine Aminotransferase (ALT/SGPT) 38 U/L (12-78) Total Bilirubin 1.4 MG/DL (0.2-1.0) Sodium Level 138 MEQ/L (136-145) Potassium Level 6.5 MEQ/L (3.5-5.1) 6.1 MEQ/L (3.5-5.1) Chloride Level 109 MEQ/L (98-107) Carbon Dioxide Level 19.9 MEQ/L (21.0-32.0) Anion Gap 9 MEQ/L (5-15) Estimat Glomerular Filtration Rate 25 ML/MIN (>89) Lactic Acid Level 1.3 mmol/L (0.4-2.0) Protein Corrected Calcium 8.6 MG/DL (8.5-10.1) Ammonia 243 MCMOL/L (11-32) Lipase 36 U/L (73-393) Random Cortisol 17.5 MCG/DL Prothrombin Time 14.7 SEC (9.8-11.6) Prothromb Time International Ratio 1.5 RATIO Activated Partial Thromboplast Time 25.7 SEC (24.3-30.1) Fibrinogen 244 mg/dL (227-377) Phosphorus Level 5.2 MG/DL (2.5-4.9) Magnesium Level 2.7 MG/DL (1.5-2.5) Thyroid Stimulating Hormone 3rd Gen 10.600 uIU/ML (0.358-3.740) Test 09/01/17 15:45 09/01/17 17:23 09/01/17 21:20 09/02/17 04:37 Nasal Screen MRSA (PCR) MRSA DETECTED (NOT DETECT) Potassium Level 5.9 MEQ/L (3.5-5.1) 5.6 MEQ/L (3.5-5.1) 6.3 MEQ/L (3.5-5.1) Free Thyroxine 1.07 NG/DL (0.76-1.46) Free Triiodothyronine (T3) pg/dL 0.54 PG/ML (2.18-3.98) White Blood Count 26.2 TH/MM3 (4.0-11.0) Red Blood Count 2.81 MIL/MM3 (4.50-5.90) Hemoglobin 7.9 GM/DL (13.0-17.0) Hematocrit 24.2 % (39.0-51.0) Mean Corpuscular Volume 85.9 FL (80.0-100.0) Mean Corpuscular Hemoglobin 28.0 PG (27.0-34.0) Mean Corpuscular Hemoglobin Concent 32.6 % (32.0-36.0) Red Cell Distribution Width 18.4 % (11.6-17.2) Platelet Count 155 TH/MM3 (150-450) Mean Platelet Volume 8.4 FL (7.0-11.0) Neutrophils (%) (Auto) 91.8 % (16.0-70.0) Lymphocytes (%) (Auto) 2.1 % (9.0-44.0) Monocytes (%) (Auto) 6.0 % (0.0-8.0) Eosinophils (%) (Auto) 0.0 % (0.0-4.0) Basophils (%) (Auto) 0.1 % (0.0-2.0) Neutrophils # (Auto) 24.0 TH/MM3 (1.8-7.7) Lymphocytes # (Auto) 0.5 TH/MM3 (1.0-4.8) Monocytes # (Auto) 1.6 TH/MM3 (0-0.9) Eosinophils # (Auto) 0.0 TH/MM3 (0-0.4) Basophils # (Auto) 0.0 TH/MM3 (0-0.2) CBC Comment DIFF FINAL Differential Comment Prothrombin Time 17.1 SEC (9.8-11.6) Prothromb Time International Ratio 1.7 RATIO Activated Partial Thromboplast Time 28.9 SEC (24.3-30.1) Blood Urea Nitrogen 46 MG/DL (7-18) Creatinine 3.63 MG/DL (0.60-1.30) Random Glucose 143 MG/DL (74-106) Total Protein 4.5 GM/DL (6.4-8.2) Albumin 1.5 GM/DL (3.4-5.0) Calcium Level 7.9 MG/DL (8.5-10.1) Phosphorus Level 6.3 MG/DL (2.5-4.9) Magnesium Level 2.6 MG/DL (1.5-2.5) Alkaline Phosphatase 273 U/L (45-117) Aspartate Amino Transf (AST/SGOT) 32 U/L (15-37) Alanine Aminotransferase (ALT/SGPT) 38 U/L (12-78) Total Bilirubin 2.0 MG/DL (0.2-1.0) Sodium Level 143 MEQ/L (136-145) Chloride Level 112 MEQ/L (98-107) Carbon Dioxide Level 20.0 MEQ/L (21.0-32.0) Anion Gap 11 MEQ/L (5-15) Estimat Glomerular Filtration Rate 21 ML/MIN (>89) Lactic Acid Level 3.2 mmol/L (0.4-2.0) Ammonia 284 MCMOL/L (11-32) Test 09/02/17 06:45 09/02/17 07:19 09/02/17 09:53 09/02/17 10:30 Blood Gas Puncture Site LT BRACHIAL LT BRACHIAL Blood Gas Patient Temperature 98.6 98.6 Blood Gas HCO3 22 mmol/L (22-26) 19 mmol/L (22-26) Blood Gas Base Excess -0.9 mmol/L (-2-2) -4.1 mmol/L (-2-2) Blood Gas Oxygen Saturation 92 % (90-100) 86 % (90-100) Arterial Blood pH 7.50 (7.380-7.420) 7.44 (7.380-7.420) Arterial Blood Partial Pressure CO2 28 mmHg (38-42) 29 mmHg (38-42) Arterial Blood Partial Pressure O2 66 mmHg (61-120) 59 mmHg (61-120) Arterial Blood Oxygen Content 9.0 Vol % (12.0-20.0) 7.9 Vol % (12.0-20.0) Arterial Blood Carboxyhemoglobin 2.4 % (0-4) 2.2 % (0-4) Arterial Blood Methemoglobin 1.0 % (0-2) 1.0 % (0-2) Blood Gas Hemoglobin 6.9 G/DL (12.0-16.0) 6.4 G/DL (12.0-16.0) Blood Gas Inspired Oxygen 21 % 21 % Blood Urea Nitrogen 45 MG/DL (7-18) Creatinine 3.59 MG/DL (0.60-1.30) Random Glucose 180 MG/DL (74-106) Total Protein 4.3 GM/DL (6.4-8.2) Albumin 1.8 GM/DL (3.4-5.0) Calcium Level 7.6 MG/DL (8.5-10.1) Alkaline Phosphatase 216 U/L (45-117) Aspartate Amino Transf (AST/SGOT) 27 U/L (15-37) Alanine Aminotransferase (ALT/SGPT) 32 U/L (12-78) Total Bilirubin 1.8 MG/DL (0.2-1.0) Sodium Level 145 MEQ/L (136-145) Potassium Level 6.3 MEQ/L (3.5-5.1) Chloride Level 114 MEQ/L (98-107) Carbon Dioxide Level 19.9 MEQ/L (21.0-32.0) Anion Gap 11 MEQ/L (5-15) Estimat Glomerular Filtration Rate 21 ML/MIN (>89) Lactic Acid Level 4.7 mmol/L (0.4-2.0) Test 09/02/17 14:15 09/02/17 14:20 Blood Gas Puncture Site LT BRACHIAL Blood Gas Patient Temperature 98.6 Blood Gas HCO3 22 mmol/L (22-26) Blood Gas Base Excess -3.5 mmol/L (-2-2) Blood Gas Oxygen Saturation 98 % (90-100) Arterial Blood pH 7.31 (7.380-7.420) Arterial Blood Partial Pressure CO2 45 mmHg (38-42) Arterial Blood Partial Pressure O2 347 mmHg (61-120) Arterial Blood Oxygen Content 10.2 Vol % (12.0-20.0) Arterial Blood Carboxyhemoglobin 1.6 % (0-4) Arterial Blood Methemoglobin 1.3 % (0-2) Blood Gas Hemoglobin 6.8 G/DL (12.0-16.0) Oxygen Delivery Device VENTILATOR Blood Gas Ventilator Setting PRVC/AC Blood Gas Inspired Oxygen 100 % Lactic Acid Level 3.0 mmol/L (0.4-2.0) Result Diagram: 09/02/17 0437 09/02/17 1030 Imaging Last Impressions Chest X-Ray 09/02/17 0000 Signed Impressions: Service Date/Time: Saturday, September 02, 2017 06:59 - CONCLUSION: Slight improvement in the aeration of the lungs. Maxine Whitlock MD Abdomen/Pelvis CT 09/02/17 0000 Signed Impressions: Service Date/Time: Saturday, September 02, 2017 08:43 - CONCLUSION: 1. Interval NG tube placement with tip in the fundus of the stomach. There is persistent moderate distention of the stomach. Consider advancing the NG tube more distally. 2. Persistent moderate to severe small bowel obstruction pattern without evidence for bowel perforation or infarction. Although a discrete transition point is again not identified, the very distal ileal loops near the ileostomy are decompressed. Findings are most consistent with an acute on chronic obstructive pattern, likely from adhesions. 3. Cirrhotic liver with TIPS stent in place. 4. Stable right-sided chest tube with small right and moderate left pleural effusions with right greater left bibasilar airspace disease, slightly progressed since prior exam. 5. Changes of prior pancreatitis. Paulie Soria MD Procedures Thoracentesis via Pleurx 09/01/17 INTUBATION 09/02/17 Colonoscopy 09/02/17 . Patient/Family Conference Present at Family Conference: Mother and stepfather, as well as Merlin Galindo LCSW . Family Conference Time (mins): 44 Family Conference Location: Consult Room Issues Discussed: * Palliative care role, purpose, approach * Additional medical, psychosocial, and spiritual history * Patients general health, functional status, and cognitive changes in the months leading up to the current hospitalization * Patient/family understanding of the current medical problems * Patient/family understanding of prognosis * Patients goals of care as best understood from advance directives and/or conversations and/or values * Current medical treatment options and benefits/burdens of those options * Likely scenarios comparing ongoing aggressive care with a transition to comfort measures only * Questions answered to the best of my ability * Palliative care contact information provided . Assessment and Plan Disease Oriented Problem List: (1) cystic fibrosis with multiorgan complications (2) renal failure (3) bowel obstruction, ileal inflammation (4) chronic kidney disease (5) hepatic cirrhosis with encephalopathy (6) anemia (7) thrombocytopenia (8) pancreatic insufficiency (9) history of recurrent GI bleeding (10) pulmonary hypertension (11) diabetes (12) depression (13) osteoporosis Symptom Scale: (1) pain 0-10 Scale: Unable to quantify (2) encephalopathy 0-10 Scale: Unable to quantify Pertinent Non-Medical Issues Psychosocial: Single, no children, finished high school, still drives. Spiritual: Not spiritual or bahai Legal: The patient lacks capacity for decision-making at this time, and his parents have assumed the healthcare decision making role. Ethical issues impacting care: None . Important Contacts Mother: Jyotsna [phone] Stepfather: Gordon Villeda [phone] . Prognosis At this point in time, the patient has a poor prognosis; however, [facility] is contemplating multiorgan transplant that may give him reasonable hope. . Code Status: Full Code Plan * FULL CODE * DECISION-MAKING: The patient lacks capacity for decision-making at this time, and it is not known whether he will regain that capacity. His parents are acting as the decision making proxies at this time. * GOALS: The patient's mother and stepfather were considering a transition to comfort measures; however, when [facility] accepted the patient in transfer with the possibility of a multiorgan transplant, they consented to intubation to ensure more stability for the transfer. They note that, if the definitive multiorgan transplant cannot occur, they will return to a comfort focus and engage hospice services. * SYMPTOMS: The patient is profoundly encephalopathic at this time, and has no obvious pain or dyspnea. I have no additional medication recommendations at this time. * The patient is being transferred to [facility] today. * Palliative Care will continue to follow the patient during this hospitalization. . Time Spent Total Floor Time (mins): 81 Face to Face Time (mins): 22 >50% Counseling/Coord of Care: Yes Thank you for the opportunity to participate in the care of Mr. Kaur. Oneida Mukherjee MD Sep 02, 2017 16:15
[2017-09-02 18:04] LABS: ALBUMIN 1.7 GM/DL (3.4-5.0); BICARBONATE 22.4 MEQ/L (21.0-32.0); CALCIUM 6.7 MG/DL (8.5-10.1); CALCIUM-PROTEIN CORRECTED 8.2 MG/DL (8.5-10.1); CREATININE 3.7 MG/DL (0.60-1.30); TOTAL BILIRUBIN ADULT 1.7 MG/DL (0.2-1.0); TOTAL PROTEIN 4.3 GM/DL (6.4-8.2)
[2017-09-02] MEDS ORDERED: DEXTROSE 50% IN WATER 50 ML VIAL(D50) IV PUSH ONE (18:45)
[2017-09-02] MEDS ORDERED: CALCIUM GLUCONATE 10% 1 GM/10 ML VIAL IV PUSH ONE (18:45)
--- NOTE | 2017-09-02 18:50 | PD.CONS ---
HPI Service Nephrology Consult Requested By Dr. Canchola Reason for Consult Chronic kidney disease history of cystic fibrosis and liver failure Primary Care Physician Mando Fuentes MD History of Present Illness Patient is a 26-year-old male with history of cystic fibrosis as double lung transplant 2014 , he has an ileostomy in 2017 at [facility], liver failure and his kidneys are getting worse. Mother at bedside, patient had obstruction and did not move his bowels, he was admitted and found to have bowel obstruction, he underwent endoscopy and found to have friable mucosa at ileostomy site with possibility of ischemia, patient has been intubated, he has hyperkalemia potassium is 6.3, he is passing urine. Review of Systems ROS Limitations: Clinical Condition Past Family Social History Allergies: Coded Allergies: vancomycin (Verified Adverse Reaction, Intermediate, 07/14/17) *MDRO Multi-Drug Resistant Organism (Verified Adverse Reaction, Unknown, ) MRSA PCR Screen (nares) Positive 05/28/16 Past Medical History History of liver cirrhosis Cystic fibrosis Pancreatic insufficiency Diabetes mellitus Hypertension/pulmonary History depression Chronic kidney disease stage IIIa Gastroesophageal reflux disease Osteoporosis Recurrent pleural effusions Past Surgical History History of double lung transplant TIPS Right [id number] Insulin pump History of G-tube since removed Reported Medications Reported Meds & Active Scripts Active Reported Lactulose Liq (Lactulose) 10 Gm/15 Ml Soln 30 Ml PO TID Novolog Inj (Insulin Aspart) 1,000 Unit/10 Ml Vial 0 SQ DIRECTED Sliding Scale as directed. Xifaxan (Rifaximin) 550 Mg Tab 550 Mg PO Q12HR Lexapro (Escitalopram Oxalate) 5 Mg Tab 5 Mg PO DAILY Cellcept (Mycophenolate Mofetil) 500 Mg Tab 500 Mg PO BID Ursodiol 300 Mg Cap 300 Mg PO BID Protonix (Pantoprazole Sodium) 40 Mg Tab 40 Mg PO BID Creon (Amylase/Lipase/Protease) 24,000-76,000-120,000 Units Cap 1 Cap PO TIDPC Creon (Pancrelipase) 36,000-114,000-180,000 Units Cap 1 Cap PO TIDPC Ergocalciferol 50,000 Unit Cap 50,000 Units PO Q7D Furosemide 40 Mg Tab 40 Mg PO DAILY Prednisone 10 Mg Tab 10 Mg PO DAILY Active Ordered Medications Current Medications Medications (Trade) Dose Ordered Sig/Cindy Route Start Time Stop Time Status Last Admin (Lexapro) 5 mg DAILY PO 09/02/17 09:00 Future Hold (Cellcept) 500 mg BID PO 09/01/17 21:00 09/01/17 20:27 (Creon 24-76-120) 1 cap TIDPC PO 09/01/17 13:30 (Xifaxan) 550 mg Q12HR PO 09/01/17 21:00 09/02/17 09:22 (Actigall) 300 mg BID PO 09/01/17 21:00 09/02/17 09:47 (NS Flush) 2 ml UNSCH PRN IV FLUSH 09/01/17 12:00 (NS Flush) 2 ml BID IV FLUSH 09/01/17 21:00 09/02/17 09:23 (Tears Naturale Opth Soln) 1 drop TID EACH EYE 09/01/17 13:00 09/02/17 09:23 (Zofran Inj) 4 mg Q6H PRN IV PUSH 09/01/17 12:00 (Albuterol Neb) 2.5 mg Q2HR NEB PRN INH 09/01/17 12:00 09/02/17 11:00 Miscellaneous Information 1 Q361D XX 09/01/17 12:00 (Chlorhexidine 2% Cloth) 3 pack Taper DAILY@04 TOP 09/02/17 04:00 08/29/18 03:59 (Chlorhexidine 2% Cloth) 3 pack UNSCH PRN TOP 09/01/17 12:00 (Sharron-Colace) 1 tab BID PO 09/01/17 21:00 09/02/17 09:22 (Milk Of Magnesia Liq) 30 ml Q12H PRN PO 09/01/17 12:00 (Senokot) 17.2 mg Q12H PRN PO 09/01/17 12:00 (Dulcolax Supp) 10 mg DAILY PRN RECTAL 09/01/17 12:00 (Lactulose Liq) 30 ml DAILY PRN PO 09/01/17 12:00 (SoluCORTEF INJ) 100 mg Q8HR IV PUSH 09/01/17 14:00 09/02/17 14:05 (Dilaudid Pf Inj) 1 mg Q4H PRN IV PUSH 09/01/17 14:00 (Dilaudid Pf Inj) 0.5 mg Q4H PRN IV PUSH 09/01/17 14:00 (D50w (Vial) Inj) 50 ml UNSCH PRN IV PUSH 09/01/17 14:00 (Glucagon Inj) 1 mg UNSCH PRN OTHER 09/01/17 14:00 (NovoLIN R SUPPLEMENTAL SCALE) 1 Q4HR SQ 09/01/17 16:00 09/02/17 16:45 (Prograf) 1 mg DAILY@06 PO 09/02/17 06:00 09/02/17 06:00 (Prograf) 0.5 mg DAILY@18 PO 09/01/17 18:00 09/01/17 18:50 (Bactroban Nasal 2% Oint) 1 applic Taper BID EACH NARE 09/02/17 09:00 08/29/18 08:59 09/02/17 09:21 Metronidazole 100 ml @ 100 mls/hr Q8H IV 09/02/17 08:00 09/02/17 16:44 Albumin Human 100 ml @ 60 mls/hr Q8H IV 09/02/17 08:00 09/02/17 16:44 Sodium Bicarbonate 75 meq/Sodium Chloride 1,075 ml @ 125 mls/hr Q8H36M IV 09/02/17 08:00 09/02/17 09:46 (Peridex 0.12% Liq) 15 ml BID@08,20 MT 09/02/17 20:00 Propofol 100 ml @ 1.788 mls/ hr TITRATE PRN IV 09/02/17 12:45 09/02/17 13:18 Vasopressin 40 units/Dextrose 100 ml @ 6 mls/hr [id number] IV 09/02/17 12:45 Piperacillin Sod/ Tazobactam Sod 50 ml @ 100 mls/hr Q8H IV 09/02/17 15:00 09/02/17 14:49 (Lactulose Liq) 30 ml Q6H PO 09/02/17 19:00 (Protonix Inj) 40 mg Q12H IV PUSH 09/02/17 21:00 Family History Noncontributory Social History No smoking or alcohol Physical Exam Vital Signs Vital Signs Date Time Temp Pulse Resp B/P (MAP) Pulse Ox O2 Delivery O2 Flow Rate FiO2 09/02/17 18:00 112 09/02/17 16:00 112 09/02/17 16:00 98.6 112 19 125/58 (80) 100 09/02/17 16:00 50 09/02/17 14:47 100 50 09/02/17 14:45 50 09/02/17 14:00 114 09/02/17 13:00 100 Mechanical Ventilator 100 09/02/17 13:00 100 100 09/02/17 13:00 100 09/02/17 12:00 98.2 126 16 118/56 (76) 100 09/02/17 12:00 112 20 128/59 (82) 96 09/02/17 12:00 116 09/02/17 11:30 111 22 131/60 (83) 95 09/02/17 11:00 110 26 125/58 (80) 94 09/02/17 10:35 96 Nasal Cannula 2.00 09/02/17 10:30 97.7 111 24 135/66 (89) 96 09/02/17 10:00 114 09/02/17 08:06 98 21 09/02/17 08:00 97.9 112 25 129/59 (82) 94 09/02/17 08:00 112 09/02/17 07:00 98 Room Air 09/02/17 06:00 113 09/02/17 04:00 97.4 110 19 130/58 (82) 97 09/02/17 04:00 110 09/02/17 02:00 109 09/02/17 00:00 97.7 110 23 108/56 (73) 98 09/02/17 00:00 110 09/01/17 22:00 109 09/01/17 20:00 97.5 105 20 123/87 (99) 99 09/01/17 20:00 99 Room Air 09/01/17 20:00 105 Physical Exam GENERAL: Sick appearing intubated SKIN: Warm and dry. HEAD: Normocephalic. EYES: No scleral icterus. No injection or drainage. NECK: Supple, trachea midline. No JVD or lymphadenopathy. CARDIOVASCULAR: Tachycardia RESPIRATORY: Breath sounds bilateral rhonchi GASTROINTESTINAL: Abdomen distended. Ileostomy in place EXTREMITIES: No cyanosis, mild edema. NEUROLOGICAL: Intubated Laboratory Laboratory Tests Test 09/01/17 21:20 09/02/17 04:37 09/02/17 06:45 09/02/17 07:19 Potassium Level 5.6 6.3 Free Thyroxine 1.07 Free Triiodothyronine (T3) pg/dL 0.54 White Blood Count 26.2 Red Blood Count 2.81 Hemoglobin 7.9 Hematocrit 24.2 Mean Corpuscular Volume 85.9 Mean Corpuscular Hemoglobin 28.0 Mean Corpuscular Hemoglobin Concent 32.6 Red Cell Distribution Width 18.4 Platelet Count 155 Mean Platelet Volume 8.4 Neutrophils (%) (Auto) 91.8 Lymphocytes (%) (Auto) 2.1 Monocytes (%) (Auto) 6.0 Eosinophils (%) (Auto) 0.0 Basophils (%) (Auto) 0.1 Neutrophils # (Auto) 24.0 Lymphocytes # (Auto) 0.5 Monocytes # (Auto) 1.6 Eosinophils # (Auto) 0.0 Basophils # (Auto) 0.0 CBC Comment DIFF FINAL Differential Comment Prothrombin Time 17.1 Prothromb Time International Ratio 1.7 Activated Partial Thromboplast Time 28.9 Blood Urea Nitrogen 46 Creatinine 3.63 Random Glucose 143 Total Protein 4.5 Albumin 1.5 Calcium Level 7.9 Phosphorus Level 6.3 Magnesium Level 2.6 Alkaline Phosphatase 273 Aspartate Amino Transf (AST/SGOT) 32 Alanine Aminotransferase (ALT/SGPT) 38 Total Bilirubin 2.0 Sodium Level 143 Chloride Level 112 Carbon Dioxide Level 20.0 Anion Gap 11 Estimat Glomerular Filtration Rate 21 Lactic Acid Level 3.2 Ammonia 284 Blood Gas Puncture Site LT BRACHIAL Blood Gas Patient Temperature 98.6 Blood Gas HCO3 22 Blood Gas Base Excess -0.9 Blood Gas Oxygen Saturation 92 Arterial Blood pH 7.50 Arterial Blood Partial Pressure CO2 28 Arterial Blood Partial Pressure O2 66 Arterial Blood Oxygen Content 9.0 Arterial Blood Carboxyhemoglobin 2.4 Arterial Blood Methemoglobin 1.0 Blood Gas Hemoglobin 6.9 Blood Gas Inspired Oxygen 21 Test 09/02/17 09:53 09/02/17 10:30 09/02/17 14:15 09/02/17 14:20 Blood Gas Puncture Site LT BRACHIAL LT BRACHIAL Blood Gas Patient Temperature 98.6 98.6 Blood Gas HCO3 19 22 Blood Gas Base Excess -4.1 -3.5 Blood Gas Oxygen Saturation 86 98 Arterial Blood pH 7.44 7.31 Arterial Blood Partial Pressure CO2 29 45 Arterial Blood Partial Pressure O2 59 347 Arterial Blood Oxygen Content 7.9 10.2 Arterial Blood Carboxyhemoglobin 2.2 1.6 Arterial Blood Methemoglobin 1.0 1.3 Blood Gas Hemoglobin 6.4 6.8 Blood Gas Inspired Oxygen 21 100 Blood Urea Nitrogen 45 Creatinine 3.59 Random Glucose 180 Total Protein 4.3 Albumin 1.8 Calcium Level 7.6 Alkaline Phosphatase 216 Aspartate Amino Transf (AST/SGOT) 27 Alanine Aminotransferase (ALT/SGPT) 32 Total Bilirubin 1.8 Sodium Level 145 Potassium Level 6.3 Chloride Level 114 Carbon Dioxide Level 19.9 Anion Gap 11 Estimat Glomerular Filtration Rate 21 Lactic Acid Level 4.7 3.0 Oxygen Delivery Device VENTILATOR Blood Gas Ventilator Setting PRVC/AC Test 09/02/17 17:00 09/02/17 17:05 Blood Urea Nitrogen 45 Creatinine 3.70 Random Glucose 182 Total Protein 4.3 Albumin 1.7 Calcium Level 6.7 Alkaline Phosphatase 208 Aspartate Amino Transf (AST/SGOT) 31 Alanine Aminotransferase (ALT/SGPT) 32 Total Bilirubin 1.7 Sodium Level 146 Potassium Level 6.3 Chloride Level 114 Carbon Dioxide Level 22.4 Anion Gap 10 Estimat Glomerular Filtration Rate 20 Protein Corrected Calcium 8.2 Ammonia 376 Result Diagram: 09/02/17 0437 09/02/17 1700 Imaging Last Impressions Chest X-Ray 09/02/17 0000 Signed Impressions: Service Date/Time: Saturday, September 02, 2017 06:59 - CONCLUSION: Slight improvement in the aeration of the lungs. Maxine Whitlock MD Abdomen/Pelvis CT 09/02/17 0000 Signed Impressions: Service Date/Time: Saturday, September 02, 2017 08:43 - CONCLUSION: 1. Interval NG tube placement with tip in the fundus of the stomach. There is persistent moderate distention of the stomach. Consider advancing the NG tube more distally. 2. Persistent moderate to severe small bowel obstruction pattern without evidence for bowel perforation or infarction. Although a discrete transition point is again not identified, the very distal ileal loops near the ileostomy are decompressed. Findings are most consistent with an acute on chronic obstructive pattern, likely from adhesions. 3. Cirrhotic liver with TIPS stent in place. 4. Stable right-sided chest tube with small right and moderate left pleural effusions with right greater left bibasilar airspace disease, slightly progressed since prior exam. 5. Changes of prior pancreatitis. Paulie Soria MD Assessment and Plan Problem List: (1) Acute kidney injury ICD Codes: N17.9 - Acute kidney failure, unspecified Status: Acute Plan: Patient has ischemia of the bowel syndrome being transferred to [place] Awaiting transportation he is passing urine Crockett catheter is in He has liver issues Hyperkalemia ordered calcium gluconate, D50 followed by insulin (2) Hyperkalemia ICD Codes: E87.5 - Hyperkalemia Status: Acute Plan: Patient is going to receive treatment as above (3) History of lung transplant ICD Codes: Z94.2 - Lung transplant status Plan: Plan to move him to transplant center He was maintained an outpatient on prednisone 10 mg, Prograf 1 mg in the morning and 0.5 mg in the evening and CellCept 500 twice a day (4) Diabetes ICD Codes: E11.9 - Type 2 diabetes mellitus without complications Status: Acute Plan: Monitor blood glucose (5) Bowel obstruction ICD Codes: K56.609 - Unspecified intestinal obstruction, unspecified as to partial versus complete obstruction Status: Acute Plan: Suspected ischemic bowel (6) pancreatic insufficiency Plan: Patient has a history of cystic fibrosis (7) chronic kidney disease (8) Cirrhosis ICD Codes: K74.60 - Unspecified cirrhosis of liver Plan: Going to be transferred to [facility] Problem Qualifiers (1) Bowel obstruction: Qualified Codes: K56.609 - Unspecified intestinal obstruction, unspecified as to partial versus complete obstruction (2) Cirrhosis: Qualified Codes: K74.69 - Other cirrhosis of liver Jimmy Gonzales MD Sep 02, 2017 18:50
[2017-09-02] MEDS: TACROLIMUS 0.5 MG CAP PO SCH (19:05)
[2017-09-02] MEDS: CHLORHEXIDINE 0.12% (ORAL KIT) 15 ML CUP MT SCH (20:00)
[2017-09-02] MEDS ORDERED: ETOMIDATE 20 MG/10 ML VIAL IV PUSH ONE (20:15)
[2017-09-02] MEDS ORDERED: ROCURONIUM INJ 50 MG/5 ML VIAL IV ONE (20:15)
--- NOTE | 2017-09-02 20:16 | RADRPT ---
EXAM DATE/TIME: 09/02/2017 19:42 [place] COMPARISON: CHEST SINGLE AP, September 02, 2017, 6:59. INDICATIONS : Respiratory failure MEDICAL HISTORY : Cystic fibrosis, diabetes, liver disease, renal disease SURGICAL HISTORY : Ileostomy, double lung transplant ENCOUNTER: Subsequent ACUITY: 2 days PAIN SCORE: Non-responsive. LOCATION: chest FINDINGS: Left greater than right parenchymal consolidation persists and not significantly changed. There is in creasing left pleural effusion, currently small to moderate. No pneumothorax seen. Patient is now intubated. Endotracheal tube tip is approximately 4 cm above the moy. There is a na sogastric tube with tip in the stomach. Despite this, gaseous gastric distention can be partially see n. There is a right internal jugular Ubkznq-c-Wwau catheter again noted, tip in the right atrium. CONCLUSION: 1. Basilar predominant bilateral parenchymal consolidation is not significantly changed. 2. Increasing left pleural effusion, currently small to moderate. 3. Indeterminate age. Appropriate position of the endotracheal tube tip, approximately 4 cm above the moy. 4. Nonspecific gaseous distention of the stomach. A nasogastric tube is present, appears appropriatel y positioned. Sushant Riggins MD on September 02, 2017 at 20:12 Board Certified Radiologist. This report was verified electronically.
[2017-09-02] MEDS ORDERED: TERBUTALINE INJ 1 MG/ML AMP SQ PRN (21:15)
--- NOTE | 2017-09-02 21:20 | PD.PROCEDR ---
Procedure Note Procedure PROCEDURE NOTE PROCEDURE: Endotracheal tube advancement INDICATION: Patient had endotracheal tube cuff leak. Pilot Control Operator Helper balloon appeared intact. Advance endotracheal tube. DETAILS OF PROCEDURE: The patient was placed in optimal position. Respiratory rate on vent was increased to 20. Patient was administered Etomidate 20 mg IV for sedation and rocuronium 40 mg IV. Oximeter oxygen saturation of 100% was obtained prior to direct laryngoscopy. Using a 3 Co-engine pilot blade, laryngoscopy was performed and a grade I Cormack-Lehane view was obtained. The cuff appeared to be subglottic. The ETT was 4 cm above the moy on CXR. The 7.5 endotracheal tube was advanced 1.5 cm and secured at 24.5 cm at the lips. The audible cuff leak resolved. Breath sounds were equal bilaterally. No sounds auscultated over the stomach. The endotracheal tube was secured with a commercial tube ramos at a depth of 24.5 cm at the lips. The patient tolerated the procedure well without any apparent complication. Oxygen saturations were maintained greater than 99% at all times. Bethanie Poe MD Sep 02, 2017 21:19
[2017-09-02] MEDS: PANTOPRAZOLE SODIUM 40 MG VIAL IV PUSH SCH (22:38)
[2017-09-02 23:47] LABS: BICARBONATE 22.8 MEQ/L (21.0-32.0); CALCIUM 7.1 MG/DL (8.5-10.1); CREATININE 3.96 MG/DL (0.60-1.30)
[2017-09-03] VITALS (21 sets, daily range): BP systolic 97–119; BP diastolic 47–56; PULSE 83–112; RESP 18–21; TEMP 93.7–98.5; O2SAT 95–100
[2017-09-03] LABS: CALCIUM-PROTEIN CORRECTED 8.4 MG/DL (8.5-10.1); TOTAL PROTEIN 4.8 GM/DL (6.4-8.2)
[2017-09-03] MEDS: RESP: ALBUTEROL 2.5 MG/3 ML NEB (SCH) NEB ×5 (00:21→22:08)
[2017-09-03] MEDS: ALBUMIN 25% INJ 100 ML IV SCH ×3 (00:39→15:47)
[2017-09-03] MEDS: LACTULOSE SYRUP 20 GM/30 ML CUP PO SCH ×4 (00:39→19:00)
[2017-09-03] MEDS: metroNIDAZOLE 500 MG INJ 100 ML IV SCH ×3 (00:39→15:47)
[2017-09-03] MEDS ORDERED: CALCIUM GLUCONATE INJ 1 GM in DEXTROSE 5% IN WATER 100ML INJ 100 ML IV ONE ×2 (00:45)
[2017-09-03] MEDS ORDERED: INSULIN HUMAN REGULAR 1,000 UNITS/10 ML VIAL IV PUSH ONE (00:45)
[2017-09-03] MEDS ORDERED: DEXTROSE 50% IN WATER 50 ML VIAL(D50) IV PUSH ONE (00:45)
[2017-09-03] MEDS: PROPOFOL 1000 MG/100 ML INJ 100 ML IV PRN ×3 (00:48→16:51)
[2017-09-03] MEDS: MIDAZOLAM HCL 2 MG/2 ML VIAL IV PUSH PRN ×3 (00:50→18:40)
[2017-09-03] MEDS: NOREPINEPHRINE-DEXTROSE DRIP 250 ML IV PRN ×2 (01:40→13:30)
[2017-09-03 01:50] LABS: AUTOMATED NEUTROPHIL # 5.7 TH/MM3 (1.8-7.7); BASOPHIL % 0.1 % (0.0-2.0); LYMPH % 6.8 % (9.0-44.0); LYMPHOCYTE # 0.4 TH/MM3 (1.0-4.8); MEAN CELL VOLUME 87.5 FL (80.0-100.0); MEAN CORPUSCULAR HEMOGLOBIN 28.4 PG (27.0-34.0); MEAN CORPUSCULAR HGB CONC 32.4 % (32.0-36.0); MEAN PLATELET VOLUME 7.5 FL (7.0-11.0); MONO % 6.8 % (0.0-8.0); MONOCYTE # 0.4 TH/MM3 (0-0.9); NEUT % 86.3 % (16.0-70.0); PLATELET COUNT 64 TH/MM3 (150-450); RED CELL DISTRIBUTION WIDTH 18.5 % (11.6-17.2); WHITE BLOOD COUNT 6.6 TH/MM3 (4.0-11.0)
[2017-09-03 01:58] LABS: HEMATOCRIT 15.8 % (39.0-51.0); HEMOGLOBIN 5.1 GM/DL (13.0-17.0)
[2017-09-03] MEDS ORDERED: SODIUM CHLOR 0.9% 250 ML INJ 250 ML IV ONE (02:15)
[2017-09-03] MEDS ORDERED: FUROSEMIDE 20 MG/2 ML VIAL IV PUSH ONE (02:15)
[2017-09-03] MEDS: SODIUM BICARBONATE 8.4% INJ 100 MEQ in DEXTROSE 5% IN WATE 1000ML INJ 1,000 ML IV SCH ×4 (02:35→11:44)
[2017-09-03 02:42] LABS: BANDS 26 % (0-6); LYMPHOCYTES 7 % (9-44); METAMYELOCYTES 2 % (0-1); MONOCYTES 5 % (0-8); NEUTROPHIL # MANUAL DIFF 5.8 TH/MM3 (1.8-7.7); POLYS (SEG NEUTROPHILS) 60 % (16-70)
[2017-09-03 02:44] LABS: ACANTHOCYTES OCC (NORMAL); OVALOCYTES 1+ (NORMAL)
[2017-09-03 02:45] LABS: POLYCHROMASIA 2.4 % (0.0-1.9)
[2017-09-03 02:46] LABS: DOHLE BODIES PRESENT (NONE SEEN)
[2017-09-03] MEDS: INSULIN NovoLIN REGULAR SUPPLEMENTAL SCALE SQ SCH ×5 (04:00→20:37)
[2017-09-03] MEDS: CHLORHEXIDINE GLUCONATE 2 % 1 PACK (2 CLOTHS) TOP SCH (04:00)
[2017-09-03] MEDS: MYCOPHENOLATE MOFETIL 200 MG/ML 175 ML BOTTLE PO SCH ×2 (06:00→17:56)
[2017-09-03] MEDS: TACROLIMUS 1 MG CAP PO SCH (06:00)
[2017-09-03] MEDS: PIPERACIL-TAZO 2.25 GM PREMIX 50 ML IV SCH ×2 (06:03→15:46)
[2017-09-03] MEDS: HYDROCORTISONE SOD SUCCINATE 100 MG VIAL IV PUSH SCH ×3 (06:04→22:05)
[2017-09-03 06:43] LABS: INTERNATIONAL NORMALIZED RATIO 2.7 RATIO; PROTHROMBIN TIME - PATIENT 27.2 SEC (9.8-11.6)
[2017-09-03 06:52] LABS: ALBUMIN 2.3 GM/DL (3.4-5.0); AST (GOT) 26 U/L (15-37); BICARBONATE 18.8 MEQ/L (21.0-32.0); BLOOD UREA NITROGEN 50 MG/DL (7-18); CALCIUM 7.6 MG/DL (8.5-10.1); CHLORIDE 110 MEQ/L (98-107); CREATININE 4.06 MG/DL (0.60-1.30); GLOMERULAR FILTRATION RATE 18 ML/MIN (>89); GLUCOSE,RANDOM 235 MG/DL (74-106); MAGNESIUM 2.3 MG/DL (1.5-2.5); SODIUM (NA) 145 MEQ/L (136-145)
[2017-09-03 06:53] LABS: ALT (GPT) 27 U/L (12-78); PHOSPHORUS 6.4 MG/DL (2.5-4.9)
[2017-09-03 06:55] LABS: ALKALINE PHOSPHATASE 169 U/L (45-117); TOTAL BILIRUBIN ADULT 1.9 MG/DL (0.2-1.0); TOTAL PROTEIN 4.2 GM/DL (6.4-8.2)
--- NOTE | 2017-09-03 07:27 | HHI.CCPN ---
Subjective Remarks/Hospital Course This is a 26-year-old male. Date of admission 09/01/2017. Past medical history includes cystic fibrosis, diabetes mellitus on insulin pump, end -stage liver disease on transplant list, portal hypertension with a history of TIPS, hepatic encephalopathy on rifaximin and lactulose chronically with a history of double lung lung transplant and history of ileostomy June 2016 at [facility] in [place]. He also has a history of a Pleurx catheter right-sided for chronic pleural effusion. Patient presents to [facility] with family with 12 hour history of acute increasing abdominal pain, distention, decreased ileostomy output. The patient was slightly confused last night, had multiple doses of lactulose, but continues to have poor ileostomy output. The patient has had multiple abdominal surgeries in the past including for intestinal atresia at in [place] and a recent ileostomy in June 2016 at [facility] in [place].. There are no current alleviating factors. No associated fever. The patient does have a history of chronic right pleural effusions, has a chronic Pleurx catheter drain ~ 1000 cc of the fluid this morning. Workup included baseline laboratories. White blood cell count within normal limits. Hemoglobin 7. Potassium was 6.5 which received D50/insulin and bicarbonate with recheck pending. Ammonia levels 243. Creatinine 3.1 which is above his baseline. Patient received normal saline infusion and a CT was performed of the abdomen/pelvis revealed gastric distention/fluid with appears to be fecal impaction versus obstruction in the small bowel with dilatation duodenum/jejunum. No transition zone. Collapsed colon distal. Right lower quadrant ileostomy site. Pancreatic calcification which are chronic with moderate bilateral pleural effusions. SUBJ 09/02: Patient is more critically ill, abdomen distended and more tender. Creat worse 3.08 to 3.67. Overnight UO approximately 350 ml. Lactic acid increased to 3.2, ammonia 284. WBC 26.2 today, check C Diff, start empiric Flagyl. Discussed with Dr. Dave. He will discuss with Dr. Regan re ileoscopy ?Irrigation. Also stat CT abd ordered. 09/03: Remains critical with guarded prognosis. Started on Levophed currently on 7 mcg a minute Started on Levophed currently on 7 g min. Hemoglobin 5.9 getting one units of PRBC. Platelet count 51 INR is 2.7. Transfuse 1 unit of FFP 1 packed unit of platelets. Oliguric BUN is 50 creatinine 4 lactic acid elevated to 5. Awaiting transfer to [facility] Objective Vital Signs Date Time Temp Pulse Resp B/P (MAP) Pulse Ox O2 Delivery O2 Flow Rate FiO2 09/03/17 06:00 94 09/03/17 06:00 92/47 09/03/17 05:08 97.9 20 100 09/03/17 04:00 50 09/02/17 20:00 Mechanical Ventilator 09/02/17 10:35 2.00 Intake and Output 09/03/17 09/03/17 09/04/17 08:00 16:00 00:00 Intake Total 1590 ml Output Total 1110 ml Balance 480 ml Result Diagram: 09/03/17 0540 09/03/17 0540 Other Results Laboratory Tests Test 09/02/17 07:19 09/02/17 09:53 09/02/17 14:15 09/02/17 20:40 Blood Gas Puncture Site LT BRACHIAL LT BRACHIAL LT BRACHIAL RT RADIAL Blood Gas Patient Temperature 98.6 98.6 98.6 98.6 Blood Gas HCO3 22 mmol/L (22-26) 19 mmol/L (22-26) 22 mmol/L (22-26) 19 mmol/L (22-26) Blood Gas Base Excess -0.9 mmol/L (-2-2) -4.1 mmol/L (-2-2) -3.5 mmol/L (-2-2) -4.4 mmol/L (-2-2) Blood Gas Oxygen Saturation 92 % (90-100) 86 % (90-100) 98 % (90-100) 96 % ( 90-100) Arterial Blood pH 7.50 (7.380-7.420) 7.44 (7.380-7.420) 7.31 (7.380-7.420) 7.48 (7.380-7.420) Arterial Blood Partial Pressure CO2 28 mmHg (38-42) 29 mmHg (38-42) 45 mmHg (38-42) 25 mmHg (38-42) Arterial Blood Partial Pressure O2 66 mmHg (61-120) 59 mmHg (61-120) 347 mmHg (61-120) 98 mmHg (61-120) Arterial Blood Oxygen Content 9.0 Vol % (12.0-20.0) 7.9 Vol % (12.0-20.0) 10.2 Vol % (12.0-20.0) 7.9 Vol % (12.0-20.0) Arterial Blood Carboxyhemoglobin 2.4 % (0-4) 2.2 % (0-4) 1.6 % (0-4) 1.9 % (0-4) Arterial Blood Methemoglobin 1.0 % (0-2) 1.0 % (0-2) 1.3 % (0-2) 1.2 % (0-2) Blood Gas Hemoglobin 6.9 G/DL (12.0-16.0) 6.4 G/DL (12.0-16.0) 6.8 G/DL (12.0-16.0) 5.7 G/DL (12.0-16.0) Blood Gas Inspired Oxygen 21 % 21 % 100 % 50 % Oxygen Delivery Device VENTILATOR VENTILATOR Blood Gas Ventilator Setting PRVC/AC PC/AC Imaging Last Impressions Abdomen/Pelvis CT 09/01/17 0853 Signed Impressions: Service Date/Time: Friday, September 01, 2017 09:39 - CONCLUSION: 1. Obstructive gas pattern with marked dilatation of the stomach and small bowel. 2. Air and fecal appearing debris throughout the mid to distal small bowel. Distention may be due to impaction since an acute transition point is not identified. 3. Cirrhotic appearing liver with evidence of prior portal venous shunt. 4. Pancreatic calcifications. 5. Bilateral pleural effusions and bibasilar airspace disease. 6. Right-sided chest tube. Adin Peguero MD Objective Remarks GENERAL: 26-year-old male intubated, intermittently 'gasping' SKIN: Warm and dry. HEAD: Atraumatic. Normocephalic. EYES: Pupils equal and round around 3 mm bilaterally and reactive. No scleral icterus. No injection or drainage. ENT: Orotracheally intubated. Mucous membranes dry, pale NECK: Trachea midline. No JVD. CARDIOVASCULAR: Tachycardic rate and rhythm. S1, S2 no S4. Without murmur. Currently on 7 mcg/min of Levophed RESPIRATORY: Diminished breath sounds bilateral posterior lung abdi. No wheezing. PRVC mode FiO2 50% GASTROINTESTINAL: Abdomen protuberant and distended, tender to palpation. Prior left upper quadrant scar from G-tube well-healed. Large old incision scar over left upper/right upper quadrant. Ileostomy site with pink mucosa with diminished stool output, 20 ml overnight. High-pitched bowel sounds right upper quadrant. MUSCULOSKELETAL: Extremities with 1+ peripheral edema. No obvious deformities. NEUROLOGICAL: Intubated sedated with propofol, unresponsive. Intermittently gasping for breath. A/P Assessment and Plan Neuro/Psych: Severe hepatic encephalopathy Depression Continue propofol for sedation and vent synchrony Continue lactulose and Xifaxan Hold Escitalopram 5 mg p.o. daily/medication-hold due to lethargy Currently written for hydromorphone 0.5 - 1 mg IV every 3 hours as needed pain 1 -10- Minimize due to ileus CV: Lactic acidosis Shock septic and hemorrhagic Currently on bicarb gtt. Levophed to keep map above 65 Currently holding furosemide 40 mg p.o Forced diuresis with Bumex infusion 1 mg/h Resp: Acute hypoxemic respiratory failure History of double lung transplant Bilateral pleural effusions with the right Pleurx catheter placed 06/09 Intubated prior to ileoscopy due to lack of airway protection, ileus with risk of aspiration and hypoxia Continue PRVC mode of ventilation PEEP 8 FiO2 50% No ventilator weaning due to severe hepatic encephalopathy Continue mycophenolate 500 mg p.o. twice daily when clinically indicated Vent bundle. DuoNeb GI: Decompensated liver failure Small bowel obstruction Probable small bowel ischemia Hepatic encephalopathy Liver cirrhosis on transplant list at [facility] History of TIPS Worsening and decompensated liver failure (worsening of ammonia, coagulopathy) emergency transfer to [facility] pending General surgery Dr. Dave. GI Dr. Regan Ileoscopy yesterday showed probable small bowel ischemia 25 cm proximal to the ileostomy Pantoprazole 40 mg IV q12 Continue lactulose, Xifaxan. docusate/senna for bowel regimen. Continue NG tube placed. Recent EGD 2016 revealed no esophageal varices. Ursodiol 300 mg BID Pancreas [id number] 3 times daily Endo: Chronic prednisone use -10 mg daily IDDM Insulin pump in left lower quadrant has been removed. Sliding-scale insulin with Novolin R medium regimen with Accu-Cheks every 4 hours to maintain glycemia Currently on hydrocortisone 100 mg IV 3 times daily while n.p.o. Renal: Acute kidney failure in setting of chronic kidney disease stage IIIa Hyperkalemia Crockett catheter for accurate I's and O's in a critical patient Nephrology consult appreciated Patient is oliguric, start Bumex infusion at 1 mg/h for forced diuresis CT abdomen/pelvis revealed no hydronephrosis Heme: Normocytic anemia, now worsening Thrombocytopenia worsening Coagulopathy Baseline hemoglobin 7. Transfuse 1 unit PRBC, 2 units FFP, 1 unit of platelet Monitor CBC, coags ID: Severe sepsis/SIRS Infectious diseases consulted Continue Zosyn and Flagyl FEN: Hyperkalemia Received insulin/D50 and bicarbonate ED. Repeated treatment with bicarb, IV insulin with dextrose, DuoNeb breathing treatment received Kayexalate ErgoCalciferol 50,000 units q. Saturday Access: -Access right Pyaumi-y-Qvma with a Obrien needle. Central line if indicated Prophylaxis -GI -pantoprazole -DVT -SCD/holding pharmacological prophylaxis due to anemia thrombocytopenia coagulopathy Patient is critically ill guarded prognosis with worsening encephalopathy, hypoxemic respiratory failure, shock, worsening acute renal failure, worsening ileus. Lactic acid has increased to 5, creatinine worsened to 4 ammonia level is highly elevated at 284. Patient is progressing multiorgan failure; prognosis is guarded. Progressive decompensated liver failure. I discussed with the parents several times, we are still awaiting transfer to [facility]. Patient will definitely be better off at a multiorgan transplant center CCT 82 min spent in evaluation and management of this critically ill patient Delia Canchola MD Sep 03, 2017 07:27
[2017-09-03] MEDS ORDERED: BUMETANIDE INJ 100 ML IV SCH (08:00)
[2017-09-03] MEDS: CHLORHEXIDINE 0.12% (ORAL KIT) 15 ML CUP MT SCH ×2 (08:00→20:00)
[2017-09-03] MEDS: LIPASE/PROTEASE/AMYLASE (24,000/76,000/120,000) CAP PO SCH ×3 (08:11→17:56)
[2017-09-03] MEDS: DOCUSATE SODIUM 50 MG/SENNA 8.6 MG TAB PO SCH ×2 (08:11→20:38)
[2017-09-03] MEDS: ARTIFICIAL TEARS OPTH SOLN 15 ML BTL EACH EYE SCH ×3 (08:11→17:56)
[2017-09-03] MEDS: URSODIOL 300 MG CAP PO SCH ×2 (08:11→20:38)
[2017-09-03] MEDS: PANTOPRAZOLE SODIUM 40 MG VIAL IV PUSH SCH ×2 (08:11→20:37)
[2017-09-03] MEDS: RIFAXIMIN 550 MG TAB PO SCH ×2 (08:11→20:38)
[2017-09-03] MEDS: MUPIROCIN 2% OINT 1 APPLIC/GM SYR EACH NARE SCH ×2 (08:12→20:37)
[2017-09-03] MEDS: SODIUM CHLORIDE 0.9% FLUSH 10 ML FLUSH IV FLUSH SCH ×2 (09:00→20:37)
[2017-09-03 09:35] LABS: AUTOMATED NEUTROPHIL # 4.3 TH/MM3 (1.8-7.7); BASOPHIL % 0.3 % (0.0-2.0); EOSINOPHIL % 0.1 % (0.0-4.0); HEMATOCRIT 21.4 % (39.0-51.0); HEMOGLOBIN 7.2 GM/DL (13.0-17.0); LYMPHOCYTE # 0.4 TH/MM3 (1.0-4.8); MEAN CELL VOLUME 86.7 FL (80.0-100.0); MEAN CORPUSCULAR HEMOGLOBIN 29.2 PG (27.0-34.0); MEAN CORPUSCULAR HGB CONC 33.7 % (32.0-36.0); MEAN PLATELET VOLUME 7.6 FL (7.0-11.0); MONO % 7.9 % (0.0-8.0); MONOCYTE # 0.4 TH/MM3 (0-0.9); NEUT % 83.7 % (16.0-70.0); PLATELET COUNT 50 TH/MM3 (150-450); RED BLOOD COUNT 2.47 MIL/MM3 (4.50-5.90); RED CELL DISTRIBUTION WIDTH 17.1 % (11.6-17.2); WHITE BLOOD COUNT 5.1 TH/MM3 (4.0-11.0)
[2017-09-03 10:42] LABS: BANDS 34 % (0-6); CORRECTED NUCLEATED RBC 1 /100 WBC (0-0); LYMPHOCYTES 7 % (9-44); MONOCYTES 4 % (0-8); NEUTROPHIL # MANUAL DIFF 4.5 TH/MM3 (1.8-7.7); NUCLEATED RED BLOOD CELL 1 (0-0); POLYS (SEG NEUTROPHILS) 55 % (16-70)
[2017-09-03 10:43] LABS: ACANTHOCYTES OCC (NORMAL); OVALOCYTES 1+ (NORMAL)
[2017-09-03 10:44] LABS: TOXIC GRANULATION 1+ (NORMAL)
--- NOTE | 2017-09-03 11:40 | HHI.NPPN ---
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, crtically ill, Bowel obstruction possible ischemia, cirrhosis, ARF Additional Remarks had blood transfusion for GI bleeding drop in H/H Objective Data Data 09/03/17 09/04/17 19:00 07:00 Intake Total 733 ml Balance 733 ml Packed Cells 400 ml FFP 333 ml Vital Signs Date Time Temp Pulse Resp B/P (MAP) Pulse Ox O2 Delivery O2 Flow Rate FiO2 09/03/17 09:00 93.7 09/03/17 08:02 96 50 09/03/17 08:00 83 09/03/17 08:00 50 09/03/17 08:00 93.7 83 18 97/54 (68) 100 09/03/17 06:00 94 09/03/17 06:00 94 92/47 09/03/17 05:08 97.9 99 20 99/51 100 09/03/17 05:02 97.9 101 20 99/51 100 09/03/17 04:08 98.5 102 18 98/47 100 09/03/17 04:00 98.5 103 19 106/53 (70) 100 09/03/17 04:00 103 09/03/17 04:00 50 09/03/17 03:57 100 50 09/03/17 03:53 98.5 105 19 100/50 100 09/03/17 02:48 105 93/46 09/03/17 02:00 110 09/03/17 01:40 119 98/48 09/03/17 00:08 100 50 09/03/17 00:00 98.0 112 19 101/50 (67) 100 09/03/17 00:00 112 09/03/17 00:00 50 09/02/17 22:00 117 09/02/17 21:26 100 50 09/02/17 21:15 50 09/02/17 20:00 98.0 118 22 117/58 (77) 100 09/02/17 20:00 118 09/02/17 20:00 100 Mechanical Ventilator 50 09/02/17 20:00 50 09/02/17 18:00 112 09/02/17 16:00 112 09/02/17 16:00 98.6 112 19 125/58 (80) 100 09/02/17 16:00 50 09/02/17 14:47 100 50 09/02/17 14:45 50 09/02/17 14:00 114 09/02/17 13:00 100 Mechanical Ventilator 100 09/02/17 13:00 100 100 09/02/17 13:00 100 09/02/17 12:00 98.2 126 16 118/56 (76) 100 09/02/17 12:00 112 20 128/59 (82) 96 09/02/17 12:00 116 -: 09/03/17 0825 09/03/17 0540 Physical Exam General Appearance: Pale Pulmonary Resp Exam: Rhonchi, Decreased Bases Cardiology CV Exam: Tachycardia Gastrointestinal/Abdomen GI Exam: Distended (ileostomy) Extremeties Extremities Exam: Moderate Edema Assessment/Plan Problem List: (1) Acute kidney injury ICD Codes: N17.9 - Acute kidney failure, unspecified Status: Acute Plan: Patient has ischemia of the bowel syndrome being transferred to [place] Awaiting transportation decreased UOP GI Bleed PRBC Bumex drip K 5.5 Monitor BMP\\1400 discussed care again no response to diuretic, discuss with family and Dr. Sushant Lei in place called dialysis 185 seen at HD uf 1 L , twitching, ? seizure (2) Hyperkalemia ICD Codes: E87.5 - Hyperkalemia Status: Acute Plan: Patient is treated earlier K better (3) History of lung transplant ICD Codes: Z94.2 - Lung transplant status Plan: Plan to move him to transplant center He was maintained an outpatient on prednisone 10 mg, Prograf 1 mg in the morning and 0.5 mg in the evening and CellCept 500 twice a day (4) Diabetes ICD Codes: E11.9 - Type 2 diabetes mellitus without complications Status: Acute Plan: Monitor blood glucose (5) Bowel obstruction ICD Codes: K56.609 - Unspecified intestinal obstruction, unspecified as to partial versus complete obstruction Status: Acute Plan: Suspected ischemic bowel (6) pancreatic insufficiency Plan: Patient has a history of cystic fibrosis (7) chronic kidney disease (8) Cirrhosis ICD Codes: K74.60 - Unspecified cirrhosis of liver Plan: Going to be transferred to [facility] Problem Qualifiers (1) Bowel obstruction: Qualified Codes: K56.609 - Unspecified intestinal obstruction, unspecified as to partial versus complete obstruction (2) Cirrhosis: Qualified Codes: K74.69 - Other cirrhosis of liver Jimmy Gonzales MD Sep 03, 2017 11:40
--- NOTE | 2017-09-03 11:58 | HHI.HCPN ---
The patient remains intubated, mechanically ventilated. He remains afebrile. He did get transfused last evening and the hemoglobin is 7.2 now, essentially his baseline. Renal function continues to worsen slowly, creatinine 4.06 now. Final arrangements for the transfer to [place] are being completed, and hopefully he will go there today. I spoke with the parents at the bedside, and they remain hopeful that "this 1 last shot" will prove to be productive and lifesaving. Their goals are established, and if the multiorgan transplant is unable to be achieved, they plan on transitioning to comfort measures to allow peaceful . Oneida Tellez MD Sep 03, 2017 11:58
--- NOTE | 2017-09-03 12:14 | HHI.IDPN ---
Note Infectious Disease Note Patient is on Levophed 6 mcg. He became hypothermic with temperature of 93. Now on warming blanket. Temperature now 95.5. Remains on the ventilator. Has the eye briefly opened. Decreased urine output. White blood cell count decreased. 26-year-old white male who was brought to the emergency department after he started feeling ill with increasing abdominal pain which began suddenly along with abdominal distention and decreased output from his ileostomy tube. The patient has a history of cystic fibrosis. He is status post double lung transplant and plans area for liver transplant for liver failure as well. The patient's mother states that he had a large dinner on the night before admission. He had no diarrhea or vomiting until he appeared for evaluation here and he had one episode of vomiting. He had CT scan of the abdomen and pelvis which showed obstructive gas pattern with marked dilatation of the stomach and small bowel. Distention probably due to impaction was noted as a possibility. He also was found to have bilateral pleural effusion and bibasilar air space disease. Further workup was performed and he underwent colonoscopy via his ileostomy and he was felt to have a significant amount of stool in the proximal ileum and distal ileum and a large diffuse circumferential patch of abnormal mucosa in the proximal ileum. The mucosa was noted to be friable and oozing some blood. The possibility of ischemic colitis was entertained. Biopsies were performed. - Because of the patient's very serious illness, plans are to transfer him to [facility] where he is on the list for liver transplantation. Blood and urine cultures have been obtained. The patient's white blood cell count was normal at 8.7 yesterday and today the white count is 26.2 with 91% neutrophils. He also had elevated lactic acid which is high at 4.7 today. His estimated GFR is 21. Currently he is on the ventilator. He was kept on the ventilator after the procedure. He is on 100% FIO2. His blood pressure systolic is 120. His heart rate is 111. He is afebrile. He has an NG tube which was placed for decompression of the abdomen. There is straw-colored NG return. The patient also had some oral secretions which looked thick and viscous and brown and looks like medications which were administered earlier. The family notes that his ileostomy was functioning normally before he was admitted to the emergency department. He has had no complaints of fever or chills. Mom mentioned that the patient himself is the one who wanted to be taken to the hospital for evaluation of the abdominal pain. ALLERGIES: VANCOMYCIN. MEDICATIONS: Current Medications Medications (Trade) Dose Ordered Sig/Cindy Route PRN Reason Start Time Stop Time Status Last Admin Dose Admin Escitalopram Oxalate (Lexapro) 5 mg DAILY PO 09/02/17 09:00 Future Hold Amylase/Lipase/ Protease (Creon 24-76-120) 1 cap TIDPC PO 09/01/17 13:30 09/03/17 08:11 Rifaximin (Xifaxan) 550 mg Q12HR PO 09/01/17 21:00 09/03/17 08:11 Ursodiol (Actigall) 300 mg BID PO 09/01/17 21:00 09/03/17 08:11 Sodium Chloride (NS Flush) 2 ml UNSCH PRN IV FLUSH FLUSH AFTER USING IV ACCESS 09/01/17 12:00 Sodium Chloride (NS Flush) 2 ml BID IV FLUSH 09/01/17 21:00 09/02/17 21:00 Artificial Tears (Tears Naturale Opth Soln) 1 drop TID EACH EYE 09/01/17 13:00 09/03/17 08:11 Ondansetron HCl (Zofran Inj) 4 mg Q6H PRN IV PUSH NAUSEA OR VOMITING 09/01/17 12:00 Albuterol Sulfate (Albuterol Neb) 2.5 mg Q2HR NEB PRN INH SOB/WHEEZING 09/01/17 12:00 09/02/17 11:00 Miscellaneous Information 1 Q361D XX 09/01/17 12:00 Chlorhexidine Gluconate (Chlorhexidine 2% Cloth) 3 pack Taper DAILY@04 TOP 09/02/17 04:00 08/29/18 03:59 Chlorhexidine Gluconate (Chlorhexidine 2% Cloth) 3 pack UNSCH PRN TOP HYGIENIC CARE 09/01/17 12:00 Senna/Docusate Sodium (Sharron-Colace) 1 tab BID PO 09/01/17 21:00 09/03/17 08:11 Magnesium Hydroxide (Milk Of Magnesia Liq) 30 ml Q12H PRN PO Mild constipation 09/01/17 12:00 Sennosides (Senokot) 17.2 mg Q12H PRN PO Moderate constipation 09/01/17 12:00 Bisacodyl (Dulcolax Supp) 10 mg DAILY PRN RECTAL SEVERE CONSITIPATION 09/01/17 12:00 Lactulose (Lactulose Liq) 30 ml DAILY PRN PO SEVERE CONSITIPATION 09/01/17 12:00 Hydrocortisone Sodium Succinate (SoluCORTEF INJ) 100 mg Q8HR IV PUSH 09/01/17 14:00 09/03/17 06:04 Hydromorphone HCl (Dilaudid Pf Inj) 1 mg Q4H PRN IV PUSH pain 6-10 09/01/17 14:00 Hydromorphone HCl (Dilaudid Pf Inj) 0.5 mg Q4H PRN IV PUSH pain 1-5 09/01/17 14:00 Dextrose (D50w (Vial) Inj) 50 ml UNSCH PRN IV PUSH HYPOGLYCEMIA-SEE COMMENTS 09/01/17 14:00 Glucagon (Glucagon Inj) 1 mg UNSCH PRN OTHER HYPOGLYCEMIA-SEE COMMENTS 09/01/17 14:00 Insulin Human Regular (NovoLIN R SUPPLEMENTAL SCALE) 1 Q4HR SQ 09/01/17 16:00 09/03/17 08:09 Tacrolimus (Prograf) 1 mg DAILY@06 PO 09/02/17 06:00 09/03/17 06:00 Tacrolimus (Prograf) 0.5 mg DAILY@18 PO 09/01/17 18:00 09/02/17 19:05 Mupirocin (Bactroban Nasal 2% Oint) 1 applic Taper BID EACH NARE 09/02/17 09:00 08/29/18 08:59 09/03/17 08:12 Metronidazole 100 ml @ 100 mls/hr Q8H IV 09/02/17 08:00 09/03/17 08:11 Albumin Human 100 ml @ 60 mls/hr Q8H IV 09/02/17 08:00 09/03/17 08:11 Chlorhexidine Gluconate (Peridex 0.12% Liq) 15 ml BID@08,20 MT 09/02/17 20:00 09/03/17 08:00 Propofol 100 ml @ 1.788 mls/ hr TITRATE PRN IV SEDATION 09/02/17 12:45 09/03/17 09:26 Vasopressin 40 units/Dextrose 100 ml @ 6 mls/hr [id number] IV 09/02/17 12:45 Piperacillin Sod/ Tazobactam Sod 50 ml @ 100 mls/hr Q8H IV 09/02/17 15:00 09/03/17 06:03 Lactulose (Lactulose Liq) 30 ml Q6H PO 09/02/17 19:00 09/03/17 06:03 Pantoprazole Sodium (Protonix Inj) 40 mg Q12H IV PUSH 09/02/17 21:00 09/03/17 08:11 Norepinephrine Bitartrate 250 ml @ 7.5 mls/hr TITRATE PRN IV Blood pressure management 09/02/17 21:15 09/03/17 01:40 Terbutaline Sulfate (Brethine Inj) 1 mg UNSCH PRN SQ For Extravasation 09/02/17 21:15 Albuterol Sulfate (Albuterol Neb) 2.5 mg Q6HR NEB NEB 09/02/17 22:00 09/03/17 08:01 Mycophenolate Mofetil (Cellcept Liq) 500 mg DAILY@0600,1800 PO 09/03/17 06:00 09/03/17 06:00 Midazolam HCl (Versed Inj) 2 mg Q1H PRN IV PUSH SEDATION 09/03/17 00:45 09/03/17 04:06 Sodium Bicarbonate 100 meq/Dextrose 1,100 ml @ 100 mls/hr Q11H IV 09/03/17 00:45 09/03/17 11:44 Sodium Chloride 250 ml @ 15 mls/hr ONCE ONCE IV 09/03/17 02:15 09/03/17 18:54 09/03/17 04:10 Bumetanide 100 ml @ 4 mls/hr Q24H IV 09/03/17 08:00 09/03/17 08:27 PAST MEDICAL HISTORY: 1. Double lung transplant. 2. Cystic fibrosis. 3. Liver cirrhosis. 4. Pancreatic insufficiency. 5. Diabetes mellitus. 6. Hypertension. 7. Depression. 8. Chronic kidney disease, stage III-A. 9. Gastroesophageal reflux disease. 10. Osteoporosis. 11. Recurrent pleural effusion. 12. Infusaport placement. 13. Insulin pump. 14. Ileostomy. REVIEW OF SYSTEMS: Unable to obtain. The patient is on ventilator. Vital Signs Date Time Temp Pulse Resp B/P (MAP) Pulse Ox O2 Delivery O2 Flow Rate FiO2 09/03/17 10:00 82 101/55 09/03/17 09:10 81 101/53 09/03/17 09:00 93.7 09/03/17 08:02 96 50 09/03/17 08:00 83 09/03/17 08:00 50 09/03/17 08:00 93.7 83 18 97/54 (68) 100 09/03/17 06:00 94 09/03/17 06:00 94 92/47 09/03/17 05:08 97.9 99 20 99/51 100 09/03/17 05:02 97.9 101 20 99/51 100 09/03/17 04:08 98.5 102 18 98/47 100 09/03/17 04:00 98.5 103 19 106/53 (70) 100 09/03/17 04:00 103 09/03/17 04:00 50 09/03/17 03:57 100 50 09/03/17 03:53 98.5 105 19 100/50 100 09/03/17 02:48 105 93/46 09/03/17 02:00 110 09/03/17 01:40 119 98/48 09/03/17 00:08 100 50 09/03/17 00:00 98.0 112 19 101/50 (67) 100 09/03/17 00:00 112 09/03/17 00:00 50 09/02/17 22:00 117 09/02/17 21:26 100 50 09/02/17 21:15 50 09/02/17 20:00 98.0 118 22 117/58 (77) 100 09/02/17 20:00 118 09/02/17 20:00 100 Mechanical Ventilator 50 09/02/17 20:00 50 09/02/17 18:00 112 09/02/17 16:00 112 09/02/17 16:00 98.6 112 19 125/58 (80) 100 09/02/17 16:00 50 09/02/17 14:47 100 50 09/02/17 14:45 50 09/02/17 14:00 114 09/02/17 13:00 100 Mechanical Ventilator 100 09/02/17 13:00 100 100 09/02/17 13:00 100 09/02/17 12:00 98.2 126 16 118/56 (76) 100 09/02/17 12:00 112 20 128/59 (82) 96 09/02/17 12:00 116 Laboratory Tests Test 09/02/17 04:37 09/03/17 01:35 09/03/17 05:40 09/03/17 08:25 White Blood Count 26.2 TH/MM3 6.6 TH/MM3 TH/MM3 5.1 TH/MM3 Red Blood Count 2.81 MIL/MM3 1.80 MIL/MM3 MIL/MM3 2.47 MIL/MM3 Hemoglobin 7.9 GM/DL 5.1 GM/DL GM/DL 7.2 GM/DL Hematocrit 24.2 % 15.8 % % 21.4 % Mean Corpuscular Volume 85.9 FL 87.5 FL FL 86.7 FL Mean Corpuscular Hemoglobin 28.0 PG 28.4 PG PG 29.2 PG Mean Corpuscular Hemoglobin Concent 32.6 % 32.4 % % 33.7 % Red Cell Distribution Width 18.4 % 18.5 % % 17.1 % Platelet Count 155 TH/MM3 64 TH/MM3 TH/MM3 50 TH/MM3 Mean Platelet Volume 8.4 FL 7.5 FL FL 7.6 FL Neutrophils (%) (Auto) 91.8 % 86.3 % % 83.7 % Lymphocytes (%) (Auto) 2.1 % 6.8 % % 8.0 % Monocytes (%) (Auto) 6.0 % 6.8 % % 7.9 % Eosinophils (%) (Auto) 0.0 % 0.0 % % 0.1 % Basophils (%) (Auto) 0.1 % 0.1 % % 0.3 % Neutrophils # (Auto) 24.0 TH/MM3 5.7 TH/MM3 TH/MM3 4.3 TH/MM3 Lymphocytes # (Auto) 0.5 TH/MM3 0.4 TH/MM3 TH/MM3 0.4 TH/MM3 Monocytes # (Auto) 1.6 TH/MM3 0.4 TH/MM3 TH/MM3 0.4 TH/MM3 Eosinophils # (Auto) 0.0 TH/MM3 0.0 TH/MM3 TH/MM3 0.0 TH/MM3 Basophils # (Auto) 0.0 TH/MM3 0.0 TH/MM3 TH/MM3 0.0 TH/MM3 CBC Comment DIFF FINAL AUTO DIFF AUTO DIFF Differential Comment FINAL DIFF MANUAL FINAL DIFF MANUAL Differential Total Cells Counted 100 100 Neutrophils % (Manual) 60 % 55 % Band Neutrophils % 26 % 34 % Lymphocytes % 7 % 7 % Monocytes % 5 % 4 % Neutrophils # (Manual) 5.8 TH/MM3 4.5 TH/MM3 Metamyelocytes 2 % Dohle Bodies PRESENT Platelet Estimate LOW LOW Platelet Morphology Comment NORMAL NORMAL Polychromasia 2.4 % Ovalocytes 1+ 1+ Acanthocytes OCC OCC Nucleated Red Blood Cells 1 /100 WBC Toxic Granulation 1+ Laboratory Tests Test 09/01/17 14:47 09/01/17 17:23 09/01/17 21:20 09/02/17 04:37 Potassium Level 6.1 MEQ/L 5.9 MEQ/L 5.6 MEQ/L 6.3 MEQ/L Phosphorus Level 5.2 MG/DL 6.3 MG/DL Magnesium Level 2.7 MG/DL 2.6 MG/DL Thyroid Stimulating Hormone 3rd Gen 10.600 uIU/ML Free Thyroxine 1.07 NG/DL Free Triiodothyronine (T3) pg/dL 0.54 PG/ML Blood Urea Nitrogen 46 MG/DL Creatinine 3.63 MG/DL Random Glucose 143 MG/DL Total Protein 4.5 GM/DL Albumin 1.5 GM/DL Calcium Level 7.9 MG/DL Alkaline Phosphatase 273 U/L Aspartate Amino Transf (AST/SGOT) 32 U/L Alanine Aminotransferase (ALT/SGPT) 38 U/L Total Bilirubin 2.0 MG/DL Sodium Level 143 MEQ/L Chloride Level 112 MEQ/L Carbon Dioxide Level 20.0 MEQ/L Anion Gap 11 MEQ/L Estimat Glomerular Filtration Rate 21 ML/MIN Lactic Acid Level 3.2 mmol/L Ammonia 284 MCMOL/L Test 09/02/17 10:30 09/02/17 14:20 09/02/17 17:00 09/02/17 17:05 Blood Urea Nitrogen 45 MG/DL 45 MG/DL Creatinine 3.59 MG/DL 3.70 MG/DL Random Glucose 180 MG/DL 182 MG/DL Total Protein 4.3 GM/DL 4.3 GM/DL Albumin 1.8 GM/DL 1.7 GM/DL Calcium Level 7.6 MG/DL 6.7 MG/DL Alkaline Phosphatase 216 U/L 208 U/L Aspartate Amino Transf (AST/SGOT) 27 U/L 31 U/L Alanine Aminotransferase (ALT/SGPT) 32 U/L 32 U/L Total Bilirubin 1.8 MG/DL 1.7 MG/DL Sodium Level 145 MEQ/L 146 MEQ/L Potassium Level 6.3 MEQ/L 6.3 MEQ/L Chloride Level 114 MEQ/L 114 MEQ/L Carbon Dioxide Level 19.9 MEQ/L 22.4 MEQ/L Anion Gap 11 MEQ/L 10 MEQ/L Estimat Glomerular Filtration Rate 21 ML/MIN 20 ML/MIN Lactic Acid Level 4.7 mmol/L 3.0 mmol/L Protein Corrected Calcium 8.2 MG/DL Ammonia 376 MCMOL/L Test 09/02/17 22:58 09/03/17 05:40 09/03/17 05:43 Blood Urea Nitrogen 45 MG/DL 50 MG/DL Creatinine 3.96 MG/DL 4.06 MG/DL Random Glucose 179 MG/DL 235 MG/DL Total Protein 4.8 GM/DL 4.2 GM/DL Calcium Level 7.1 MG/DL 7.6 MG/DL Sodium Level 147 MEQ/L 145 MEQ/L Potassium Level 5.9 MEQ/L 5.5 MEQ/L Chloride Level 113 MEQ/L 110 MEQ/L Carbon Dioxide Level 22.8 MEQ/L 18.8 MEQ/L Anion Gap 11 MEQ/L 16 MEQ/L Estimat Glomerular Filtration Rate 19 ML/MIN 18 ML/MIN Protein Corrected Calcium 8.4 MG/DL Albumin 2.3 GM/DL Phosphorus Level 6.4 MG/DL Magnesium Level 2.3 MG/DL Alkaline Phosphatase 169 U/L Aspartate Amino Transf (AST/SGOT) 26 U/L Alanine Aminotransferase (ALT/SGPT) 27 U/L Total Bilirubin 1.9 MG/DL Lactic Acid Level 5.0 mmol/L PHYSICAL EXAMINATION: GENERAL: On the ventilator, sedated. HEENT: Not able to fully assess since the patient cannot cooperate. The sclerae are not icteric. Oropharynx intubated. NECK: No adenopathy. LUNGS: Clear breath sounds which are decreased at the bases. HEART: Nl S1S2.Systolic murmur at the left sternal border. ABDOMEN: Distended. Bowel sounds not audible. Ileostomy tube has small amount of light chocolate brown liquid. : Normal genitalia. EXTREMITIES: 1+ edema of both lower extremities. No clubbing or cyanosis. SKIN: No diffuse rash. NEUROLOGIC: Unable to assess. PSYCH: Unable to assess. IMPRESSION: 1. Sepsis. Patient developed hypothermia and hypotension requiring Levophed. 2. Abdominal pain. Patient with leukocytosis and increased lactic acid. Possible ischemic bowel. 3. Immunosuppressed state. Patient on medications for double lung transplant. 4. Liver cirrhosis. The patient is being evaluated for liver transplantation. 5. Acute kidney disease. The patient with known chronic kidney disease. Patient is very critically ill. RECOMMENDATIONS: 1. Continue metronidazole. 2. Continue piperacillin/tazobactam for extended coverage for gram-negative bacteria. 3. Add fungal coverage with Micafungin. 4. Add Cubicin for enterococcal coverage in light of abdominal process. 5. Follow the white blood cell count. 6. Follow the blood cultures. 7. Monitor the clinical status. Discussed with RN. Discussed with mom at bedside. Transfer pending to [facility] in [place]. Billy Kendrick MD Sep 03, 2017 12:14
[2017-09-03 12:37] LABS: MEAN CELL VOLUME 86.8 FL (80.0-100.0); MEAN CORPUSCULAR HEMOGLOBIN 29.3 PG (27.0-34.0); MEAN CORPUSCULAR HGB CONC 33.7 % (32.0-36.0); MEAN PLATELET VOLUME 8.3 FL (7.0-11.0); PLATELET COUNT 56 TH/MM3 (150-450); RED BLOOD COUNT 2.18 MIL/MM3 (4.50-5.90); RED CELL DISTRIBUTION WIDTH 16.5 % (11.6-17.2); WHITE BLOOD COUNT 4.3 TH/MM3 (4.0-11.0)
[2017-09-03 12:41] LABS: HEMOGLOBIN 6.4 GM/DL (13.0-17.0); INTERNATIONAL NORMALIZED RATIO 2.1 RATIO; PROTHROMBIN TIME - PATIENT 21.1 SEC (9.8-11.6)
[2017-09-03 13:08] LABS: ALBUMIN 2.7 GM/DL (3.4-5.0); BICARBONATE 18.7 MEQ/L (21.0-32.0); CALCIUM 7.4 MG/DL (8.5-10.1); CALCIUM-PROTEIN CORRECTED 8.8 MG/DL (8.5-10.1); CREATININE 4.24 MG/DL (0.60-1.30); TOTAL BILIRUBIN ADULT 2.7 MG/DL (0.2-1.0); TOTAL PROTEIN 4.7 GM/DL (6.4-8.2)
--- NOTE | 2017-09-03 13:41 | HHI.GIFU ---
Subjective Remarks Pt now intubated on vent. Mother at bedside. Still distended. pending transfer to [place] for multi organ transplant. (Antonia MilesP) Objective Vitals I&O Vital Signs Date Time Temp Pulse Resp B/P (MAP) Pulse Ox O2 Delivery O2 Flow Rate FiO2 09/03/17 13:00 89 103/51 09/03/17 12:23 99 40 09/03/17 12:00 84 09/03/17 12:00 95.7 84 20 102/52 (69) 99 09/03/17 10:00 82 101/55 09/03/17 09:10 81 101/53 09/03/17 09:00 93.7 09/03/17 08:02 96 50 09/03/17 08:00 83 09/03/17 08:00 50 09/03/17 08:00 93.7 83 18 97/54 (68) 100 09/03/17 06:00 94 09/03/17 06:00 94 92/47 09/03/17 05:08 97.9 99 20 99/51 100 09/03/17 05:02 97.9 101 20 99/51 100 09/03/17 04:08 98.5 102 18 98/47 100 09/03/17 04:00 98.5 103 19 106/53 (70) 100 09/03/17 04:00 103 09/03/17 04:00 50 09/03/17 03:57 100 50 09/03/17 03:53 98.5 105 19 100/50 100 09/03/17 02:48 105 93/46 09/03/17 02:00 110 09/03/17 01:40 119 98/48 09/03/17 00:08 100 50 09/03/17 00:00 98.0 112 19 101/50 (67) 100 09/03/17 00:00 112 09/03/17 00:00 50 09/02/17 22:00 117 09/02/17 21:26 100 50 09/02/17 21:15 50 09/02/17 20:00 98.0 118 22 117/58 (77) 100 09/02/17 20:00 118 09/02/17 20:00 100 Mechanical Ventilator 50 09/02/17 20:00 50 09/02/17 18:00 112 09/02/17 16:00 112 09/02/17 16:00 98.6 112 19 125/58 (80) 100 09/02/17 16:00 50 09/02/17 14:47 100 50 09/02/17 14:45 50 09/02/17 14:00 114 I/O 09/02/17 09/02/17 09/02/17 09/03/17 09/03/17 09/03/17 06:59 14:59 22:59 06:59 14:59 22:59 Intake Total 1640 ml 3699 ml 1640 ml 2259 ml Output Total 925 ml 75 ml 1000 ml 1110 ml Balance -925 ml 1565 ml 2699 ml 530 ml 2259 ml IV Total 1170 ml 3619 ml 1190 ml 1300 ml Packed Cells 400 ml 400 ml FFP 333 ml Platelets 226 ml Other 470 ml 80 ml 50 ml Output Urine Total 225 ml 350 ml 90 ml Stool Total 75 ml 50 ml 20 ml Gastric Drainage Total 700 ml 600 ml 1000 ml Laboratory Laboratory Tests Test 09/02/17 14:15 09/02/17 14:20 09/02/17 17:00 09/02/17 17:05 Blood Gas Puncture Site LT BRACHIAL Blood Gas Patient Temperature 98.6 Blood Gas HCO3 22 Blood Gas Base Excess -3.5 Blood Gas Oxygen Saturation 98 Arterial Blood pH 7.31 Arterial Blood Partial Pressure CO2 45 Arterial Blood Partial Pressure O2 347 Arterial Blood Oxygen Content 10.2 Arterial Blood Carboxyhemoglobin 1.6 Arterial Blood Methemoglobin 1.3 Blood Gas Hemoglobin 6.8 Oxygen Delivery Device VENTILATOR Blood Gas Ventilator Setting PRVC/AC Blood Gas Inspired Oxygen 100 Lactic Acid Level 3.0 Blood Urea Nitrogen 45 Creatinine 3.70 Random Glucose 182 Total Protein 4.3 Albumin 1.7 Calcium Level 6.7 Alkaline Phosphatase 208 Aspartate Amino Transf (AST/SGOT) 31 Alanine Aminotransferase (ALT/SGPT) 32 Total Bilirubin 1.7 Sodium Level 146 Potassium Level 6.3 Chloride Level 114 Carbon Dioxide Level 22.4 Anion Gap 10 Estimat Glomerular Filtration Rate 20 Protein Corrected Calcium 8.2 Ammonia 376 Test 09/02/17 20:40 09/02/17 22:58 09/03/17 01:35 09/03/17 05:40 Blood Gas Puncture Site RT RADIAL Blood Gas Patient Temperature 98.6 Blood Gas HCO3 19 Blood Gas Base Excess -4.4 Blood Gas Oxygen Saturation 96 Arterial Blood pH 7.48 Arterial Blood Partial Pressure CO2 25 Arterial Blood Partial Pressure O2 98 Arterial Blood Oxygen Content 7.9 Arterial Blood Carboxyhemoglobin 1.9 Arterial Blood Methemoglobin 1.2 Blood Gas Hemoglobin 5.7 Oxygen Delivery Device VENTILATOR Blood Gas Ventilator Setting PC/AC Blood Gas Inspired Oxygen 50 Blood Urea Nitrogen 45 50 Creatinine 3.96 4.06 Random Glucose 179 235 Total Protein 4.8 4.2 Calcium Level 7.1 7.6 Sodium Level 147 145 Potassium Level 5.9 5.5 Chloride Level 113 110 Carbon Dioxide Level 22.8 18.8 Anion Gap 11 16 Estimat Glomerular Filtration Rate 19 18 Protein Corrected Calcium 8.4 White Blood Count 6.6 Red Blood Count 1.80 Hemoglobin 5.1 Hematocrit 15.8 Mean Corpuscular Volume 87.5 Mean Corpuscular Hemoglobin 28.4 Mean Corpuscular Hemoglobin Concent 32.4 Red Cell Distribution Width 18.5 Platelet Count 64 Mean Platelet Volume 7.5 Neutrophils (%) (Auto) 86.3 Lymphocytes (%) (Auto) 6.8 Monocytes (%) (Auto) 6.8 Eosinophils (%) (Auto) 0.0 Basophils (%) (Auto) 0.1 Neutrophils # (Auto) 5.7 Lymphocytes # (Auto) 0.4 Monocytes # (Auto) 0.4 Eosinophils # (Auto) 0.0 Basophils # (Auto) 0.0 CBC Comment AUTO DIFF Differential Total Cells Counted 100 Neutrophils % (Manual) 60 Band Neutrophils % 26 Lymphocytes % 7 Monocytes % 5 Neutrophils # (Manual) 5.8 Metamyelocytes 2 Differential Comment FINAL DIFF MANUAL Dohle Bodies PRESENT Platelet Estimate LOW Platelet Morphology Comment NORMAL Polychromasia 2.4 Ovalocytes 1+ Acanthocytes OCC Prothrombin Time 27.2 Prothromb Time International Ratio 2.7 Activated Partial Thromboplast Time 37.1 Fibrinogen 182 Albumin 2.3 Phosphorus Level 6.4 Magnesium Level 2.3 Alkaline Phosphatase 169 Aspartate Amino Transf (AST/SGOT) 26 Alanine Aminotransferase (ALT/SGPT) 27 Total Bilirubin 1.9 Tacrolimus (Prograf) Level 7.4 Test 09/03/17 05:43 09/03/17 08:25 09/03/17 12:15 Lactic Acid Level 5.0 White Blood Count 5.1 4.3 Red Blood Count 2.47 2.18 Hemoglobin 7.2 6.4 Hematocrit 21.4 19.0 Mean Corpuscular Volume 86.7 86.8 Mean Corpuscular Hemoglobin 29.2 29.3 Mean Corpuscular Hemoglobin Concent 33.7 33.7 Red Cell Distribution Width 17.1 16.5 Platelet Count 50 56 Mean Platelet Volume 7.6 8.3 Neutrophils (%) (Auto) 83.7 Lymphocytes (%) (Auto) 8.0 Monocytes (%) (Auto) 7.9 Eosinophils (%) (Auto) 0.1 Basophils (%) (Auto) 0.3 Neutrophils # (Auto) 4.3 Lymphocytes # (Auto) 0.4 Monocytes # (Auto) 0.4 Eosinophils # (Auto) 0.0 Basophils # (Auto) 0.0 CBC Comment AUTO DIFF Differential Total Cells Counted 100 Neutrophils % (Manual) 55 Band Neutrophils % 34 Lymphocytes % 7 Monocytes % 4 Neutrophils # (Manual) 4.5 Nucleated Red Blood Cells 1 Differential Comment FINAL DIFF MANUAL Toxic Granulation 1+ Platelet Estimate LOW Platelet Morphology Comment NORMAL Ovalocytes 1+ Acanthocytes OCC Prothrombin Time 21.1 Prothromb Time International Ratio 2.1 Activated Partial Thromboplast Time 37.3 Blood Urea Nitrogen 47 Creatinine 4.24 Random Glucose 282 Total Protein 4.7 Albumin 2.7 Calcium Level 7.4 Alkaline Phosphatase 153 Aspartate Amino Transf (AST/SGOT) 20 Alanine Aminotransferase (ALT/SGPT) 25 Total Bilirubin 2.7 Sodium Level 144 Potassium Level 5.0 Chloride Level 108 Carbon Dioxide Level 18.7 Anion Gap 17 Estimat Glomerular Filtration Rate 17 Protein Corrected Calcium 8.8 Imaging Last Impressions Chest X-Ray 09/02/17 0000 Signed Impressions: Service Date/Time: Saturday, September 02, 2017 19:42 - CONCLUSION: 1. Basilar predominant bilateral parenchymal consolidation is not significantly changed. 2. Increasing left pleural effusion, currently small to moderate. 3. Indeterminate age. Appropriate position of the endotracheal tube tip, approximately 4 cm above the moy. 4. Nonspecific gaseous distention of the stomach. A nasogastric tube is present, appears appropriately positioned. Sushant Riggins MD Abdomen/Pelvis CT 09/02/17 0000 Signed Impressions: Service Date/Time: Saturday, September 02, 2017 08:43 - CONCLUSION: 1. Interval NG tube placement with tip in the fundus of the stomach. There is persistent moderate distention of the stomach. Consider advancing the NG tube more distally. 2. Persistent moderate to severe small bowel obstruction pattern without evidence for bowel perforation or infarction. Although a discrete transition point is again not identified, the very distal ileal loops near the ileostomy are decompressed. Findings are most consistent with an acute on chronic obstructive pattern, likely from adhesions. 3. Cirrhotic liver with TIPS stent in place. 4. Stable right-sided chest tube with small right and moderate left pleural effusions with right greater left bibasilar airspace disease, slightly progressed since prior exam. 5. Changes of prior pancreatitis. Paulie Soria MD Physical Exam HEENT: normocephalic; atraumatic; no jaundice. intubated CHEST: coarse CARDIAC: tachy ABDOMEN: firm significantly distended and tympanitic, BS hypoactive EXTREMITIES: No clubbing, cyanosis, or edema. SKIN: pale [employer] O[employer]ATOR: sedated on vent (Antonia Miles) Assessment and Plan Plan - SBO vs. fecal impaction- Symptoms started yesterday with abd distension and decreased out put in ileostomy, had few episodes of N/V CT was performed of the abdomen/pelvis revealed gastric distention/fluid with appears to be fecal impaction versus obstruction in the small bowel with dilatation duodenum/jejunum. No transition zone. Collapsed colon distal. Right lower quadrant ileostomy site. Pancreatic calcification which are chronic with moderate bilateral pleural effusions. 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 distended, tympanitic. d/w CCM, family does nto want surgery but is agreeable to endoscopy. palliative care has been consulted. CT abd pending 09/03/17 s/p ileoscopy found stool, no impaction. friable mucosa proximal ileum suspicious for ischemia, path is pending transfer to [facility] for organ transplant also pending. CT 09/02/17 showed persistent small bowel obstruction pattern, no evidence perf or infact, consistent w/ acute on chornic obstructive pattern, cirrhosis, TIPS, pleural effusions, chronic pancreatitis Plan: - await path - NGT to [facility] - await transfer - Supportive care - Pt seen and examined by Dr. Kapadia and myself and this note is written on his behalf. (Antonia Miles) Physician Comments Agree with above, biopsies pending, will follow up with you. (Domingo Kapadia MD) Antonia Miles Sep 03, 2017 13:41 Domingo Kapadia MD Sep 03, 2017 21:31
[2017-09-03] MEDS ORDERED: MICAFUNGIN INJ 100 MG in SODIUM CHLORIDE 0.9% INJ 100 ML IV SCH (14:00)
--- NOTE | 2017-09-03 14:47 | PD.PROCEDR ---
Central Line Procedure REASON FOR PROCEDURE Central venous access PROCEDURE PERFORMED Central line placement: US guided RIJ MikyCat CONSENT Informed consent for procedure was obtained from mother. The risks and benefits of the procedure were discussed to include but limited to bleeding, clot formation, infection, and even . ANESTHESIA Local injection of 1% Lidocaine DESCRIPTION OF THE PROCEDURE The patient was placed in supine, mild Trendelenburg position. The area was exposed and cleansed with ChloraPrep, times two. Large sterile drape was used to cover the patient, with the site exposed, under sterile conditions including cap, face mask, sterile gown, and sterile gloves. On single attempt, the introducer needle was inserted with negative pressure in syringe and venous flash was obtained. The guide wire was then advanced without any restriction and the needle was removed. The dilator was used without any complications. Using Seldinger technique the 20 CM 14 F triple lumen catheter was advanced over the guide wire to a depth of 17 centimeters. The guide wire was removed. All ports were aspirated with dark venous blood return and flushed easily with sterile saline. All ports were capped. Antibiotic disc was placed around central line at puncture site. The central line was secured to the skin with two interrupted 2.0 silk sutures. The area was bandaged with sterile see- through central line bandage. RADIOLOGICAL DATA Ultrasound guidance was used to locate RIJ. Doppler/color flow was used to confirm venous flow. COMPLICATIONS: No apparent complications ESTIMATED BLOOD LOSS: Less than 1 cc. Delia Canchola MD Sep 03, 2017 14:46
[2017-09-03] MEDS ORDERED: DAPTOmycin INJ 250 MG in SODIUM CHLORIDE 0.9% INJ 100 ML IV SCH (15:00)
[2017-09-03] MEDS ORDERED: SODIUM CHLOR 0.9% 1000 ML INJ 1,000 ML IV PRN (15:13)
[2017-09-03] MEDS ORDERED: SODIUM CHLOR 0.9% 1000 ML INJ 1,000 ML OTHER PRN ×2 (15:13)
[2017-09-03] MEDS ORDERED: EPOETIN ALFA 10,000 UNITS/ML VIAL IV PUSH PRN (15:15)
[2017-09-03] MEDS ORDERED: cloNIDine HCL 0.1 MG TAB PO PRN (15:15)
[2017-09-03] MEDS ORDERED: NITROGLYCERIN 0.4 MG SL 25 TABS/BTL SL PRN (15:15)
[2017-09-03] MEDS ORDERED: ALBUMIN 25% INJ 100 ML IV PRN (15:15)
[2017-09-03] MEDS ORDERED: ACETAMINOPHEN 325 MG TAB PO PRN (15:15)
[2017-09-03] MEDS ORDERED: ONDANSETRON HCL 4 MG/2 ML VIAL IV PUSH PRN (15:15)
[2017-09-03] MEDS ORDERED: GELATIN 12 MM/7 MM FOAM TOP PRN (15:15)
[2017-09-03] MEDS ORDERED: SODIUM CHLORIDE 0.9% FLUSH 10 ML FLUSH IV FLUSH PRN (15:15)
[2017-09-03] MEDS ORDERED: MANNITOL 12.5 GM/50 ML VIAL IV PRN (15:15)
[2017-09-03] MEDS ORDERED: GENTAMICIN SULFATE 20 MG/2 ML VIAL OTHER PRN (15:15)
[2017-09-03] MEDS ORDERED: HEPARIN SODIUM - IV 10,000 UNITS/10 ML VIAL PRN (15:15)
[2017-09-03] MEDS ORDERED: diphenhydrAMINE HCL 25 MG CAP PO PRN (15:15)
[2017-09-03] MEDS ORDERED: HEPARIN SODIUM - IV 10,000 UNITS/10 ML VIAL IV FLUSH PRN (15:15)
--- NOTE | 2017-09-03 15:54 | RADRPT ---
EXAM DATE/TIME: 09/03/2017 14:52 [facility] COMPARISON: CHEST SINGLE AP, September 02, 2017, 19:42. INDICATIONS : Post vascath placement MEDICAL HISTORY : cystic fibrosis, diabetic, liver and renal disease SURGICAL HISTORY : ileostomy, lung transplant ENCOUNTER: Subsequent ACUITY: 3 days PAIN SCORE: Non-responsive. LOCATION: Bilateral chest FINDINGS: Stable ETT, NGT and right IJ [id number]. Interval placement of right IJ temporary dialysis cathete r with tip in the proximal right atrium. No significant pneumothorax. Redemonstration of bilateral pa tchy lower lobe air space disease with small left pleural effusion. Improved gaseous distention of th e stomach. Remainder of the exam is unchanged. CONCLUSION: 1. Right IJ Vas-Cath in good position without pneumothorax. 2. Improved gaseous distention of the stomach. 3. The remainder of the exam is unchanged. Paulie Soria MD on September 03, 2017 at 15:42 Board Certified Radiologist. This report was verified electronically.
[2017-09-03] MEDS: TACROLIMUS 0.5 MG CAP PO SCH (17:56)
--- NOTE | 2017-09-03 22:11 | RADRPT ---
EXAM DATE/TIME: 09/03/2017 21:45 [facility] COMPARISON: No previous studies available for comparison. INDICATIONS : Altered mental status, pupil change. RADIATION DOSE: 45.89 CTDIvol (mGy) ; Patient motion MEDICAL HISTORY : Cystic fibrosis. Renal failure. SURGICAL HISTORY : Bilateral lung transplant. ENCOUNTER: Initial ACUITY: 1 day PAIN SCALE: Non-responsive LOCATION: cranial TECHNIQUE: Multiple contiguous axial images were obtained of the head. Using automated exposure control and adj ustment of the mA and/or kV according to patient size, radiation dose was kept as low as reasonably a chievable to obtain optimal diagnostic quality images. DICOM format image data is available electro nically for review and comparison. FINDINGS: There is diffuse cerebral edema/swelling. Bustillo/white matter differentiation has been lost. No focal b leed is demonstrated. No mass, mass effect or midline shift. CONCLUSION: Diffuse cerebral edema presumably related to a recent severe anoxic event. Sushant Riggins MD on September 03, 2017 at 22:07 Board Certified Radiologist. This report was verified electronically.
[2017-09-03] MEDS ORDERED: MIDAZOLAM HCL 5 MG/5 ML VIAL IV PUSH ONE (22:30)
[2017-09-03] MEDS ORDERED: MORPHINE SULFATE 8 MG/ML INJ IV PUSH ONE (22:30)
[2017-09-03] MEDS ORDERED: ONDANSETRON HCL 4 MG/2 ML VIAL IV PUSH ONE (22:30)
[2017-09-03 22:31] LABS: MPA GLUCURONIDE 52 mcg/mL (35 - 100); MYCOPHENOLIC ACID <0.5 mcg/mL (1.0 - 3.5)
[2017-09-03] MEDS ORDERED: LORazepam 2 MG/ML VIAL IV PUSH PRN (22:45)
[2017-09-03] MEDS ORDERED: REMOVE OLD PATCH T-DERMAL SCH (23:00)
[2017-09-03] MEDS ORDERED: SCOPOLAMINE 1.5 MG PATCH T-DERMAL ONE (23:00)
[2017-09-03] MEDS ORDERED: MIDAZOLAM HCL 5 MG/ML VIAL (1 ML) IV ONE (23:15)
[2017-09-03] MEDS: MORPHINE SULFATE 8 MG/ML INJ IV PUSH PRN ×2 (23:20→23:40)
--- NOTE | 2017-09-04 07:11 | DEATH SUM ---
Summary Demographics Date Pronounced : Sep 04, 2017 Time Of : 2346 Pronounced By: NAEL LYNN RN AND SPRING LYNN RN Preliminary Cause of : Multi Organ Failure Delia Canchola MD Sep 04, 2017 07:11
--- NOTE | 2017-09-04 07:19 | HHI.DS ---
Summary Note Date of : Sep 04, 2017 Time Of : 2347 Admission Date Sep 01, 2017 at 11:52 Admitting Diagnosis bowel obstruction with fecal impaction, hyperkalemia, ENOCH, dehydrati Diagnosis at Time of : (1) Cerebral edema ICD Code: G93.6 - Cerebral edema Diagnosis: Principal (2) Hepatic encephalopathy ICD Code: K72.90 - Hepatic failure, unspecified without coma Diagnosis: Principal (3) Acute hypoxemic respiratory failure ICD Code: J96.01 - Acute respiratory failure with hypoxia Diagnosis: Principal (4) Acute liver failure ICD Code: K72.00 - Acute and subacute hepatic failure without coma Diagnosis: Principal (5) Acute kidney failure ICD Code: N17.9 - Acute kidney failure, unspecified Diagnosis: Principal (6) Septic shock ICD Code: A41.9 - Sepsis, unspecified organism; R65.21 - Severe sepsis with septic shock Diagnosis: Principal (7) Small bowel ischemia ICD Code: K55.9 - Vascular disorder of intestine, unspecified Diagnosis: Principal (8) Pancytopenia ICD Code: D61.818 - Other pancytopenia Diagnosis: Principal (9) Hyperammonemia ICD Code: E72.20 - Disorder of urea cycle metabolism, unspecified Diagnosis: Principal (10) Small bowel obstruction ICD Code: K56.609 - Unspecified intestinal obstruction, unspecified as to partial versus complete obstruction Diagnosis: Principal (11) Acute kidney injury ICD Code: N17.9 - Acute kidney failure, unspecified Diagnosis: Principal (12) Hyperammonemia ICD Code: E72.20 - Disorder of urea cycle metabolism, unspecified Diagnosis: Principal (13) Sepsis ICD Code: A41.9 - Sepsis, unspecified organism (14) Hyperkalemia ICD Code: E87.5 - Hyperkalemia Diagnosis: Principal (15) DM (diabetes mellitus) ICD Code: E11.9 - Type 2 diabetes mellitus without complications Diagnosis: Secondary (16) Immunosuppressed status ICD Code: D89.9 - Disorder involving the immune mechanism, unspecified Diagnosis: Secondary (17) Cystic fibrosis ICD Code: E84.9 - Cystic fibrosis, unspecified Diagnosis: Secondary (18) Thrombocytopenia ICD Code: D69.6 - Thrombocytopenia, unspecified Diagnosis: Secondary (19) History of lung transplant ICD Code: Z94.2 - Lung transplant status Diagnosis: Secondary (20) S/P TIPS (transjugular intrahepatic portosystemic shunt) ICD Code: Z95.828 - Presence of other vascular implants and grafts Diagnosis: Secondary (21) Port-a-cath in place ICD Code: Z95.828 - Presence of other vascular implants and grafts Diagnosis: Secondary (22) Chronic kidney disease (CKD), stage III (moderate) ICD Code: N18.3 - Chronic kidney disease, stage 3 (moderate) Diagnosis: Secondary (23) Gastroesophageal reflux disease ICD Code: K21.9 - Gastro-esophageal reflux disease without esophagitis Diagnosis: Secondary (24) Pancreatic insufficiency due to cystic fibrosis ICD Code: E84.19 - Cystic fibrosis with other intestinal manifestations Diagnosis: Secondary (25) Cirrhosis ICD Code: K74.60 - Unspecified cirrhosis of liver Diagnosis: Secondary (26) Depression ICD Code: F32.9 - Major depressive disorder, single episode, unspecified Diagnosis: Secondary (27) Pleural drain in place Diagnosis: Secondary (28) Ileostomy, has currently ICD Code: Z93.2 - Ileostomy status Diagnosis: Secondary (29) Hypoalbuminemia ICD Code: E88.09 - Other disorders of plasma-protein metabolism, not elsewhere classified Diagnosis: Secondary Procedures RIJ Vascath placement and hemodialyses 09/03/17 Brief History This is a 26-year-old male. Date of admission 09/01/2017. Past medical history includes cystic fibrosis, diabetes mellitus on insulin pump, end -stage liver disease on transplant with a male, portal hypertension with a history of TIPS, hepatic encephalopathy on rifaximin and lactulose chronically with a history of double lung transplant and history of ileostomy June 2016 at [facility] in [place]. He also has a history of a Pleurx catheter right- sided for chronic pleural effusion. Patient presents to [facility] with family with 12 hour history of acute increasing abdominal pain, distention, decreased ileostomy output. The patient was slightly confused last night, had multiple doses of lactulose, but continues to have poor ileostomy output. The patient has had multiple abdominal surgeries in the past including for intestinal atresia at in [place] and a recent ileostomy in June 2016 at [facility] in [place].. There are no current alleviating factors. No associated fever. The patient does have a history of chronic right pleural effusions, has a chronic Pleurx catheter drain ~ 1000 cc of the fluid this morning. Workup included baseline laboratories. White blood cell count within normal limits. Hemoglobin 7. Potassium was 6.5 which received D50/insulin and bicarbonate with recheck pending. Ammonia levels 243. Creatinine 3.1 which is above his baseline. Patient received normal saline infusion and a CT was performed of the abdomen/pelvis revealed gastric distention/fluid with appears to be fecal impaction versus obstruction in the small bowel with dilatation duodenum/jejunum. No transition zone. Collapsed colon distal. Right lower quadrant ileostomy site. Pancreatic calcification which are chronic with moderate bilateral pleural effusions. CBC/BMP: 09/03/17 1215 09/03/17 1215 Significant Findings Laboratory Tests Test 09/01/17 09:10 09/01/17 11:47 09/01/17 14:15 09/01/17 14:47 Red Blood Count 2.41 MIL/MM3 (4.50-5.90) Hemoglobin 6.9 GM/DL (13.0-17.0) Hematocrit 20.8 % (39.0-51.0) Red Cell Distribution Width 18.3 % (11.6-17.2) Platelet Count 102 TH/MM3 (150-450) Neutrophils (%) (Auto) 81.9 % (16.0-70.0) Lymphocytes # (Auto) 0.8 TH/MM3 (1.0-4.8) Blood Urea Nitrogen 43 MG/DL (7-18) Creatinine 3.08 MG/DL (0.60-1.30) Random Glucose 178 MG/DL (74-106) Total Protein 4.8 GM/DL (6.4-8.2) Albumin 1.6 GM/DL (3.4-5.0) Calcium Level 7.3 MG/DL (8.5-10.1) Alkaline Phosphatase 274 U/L (45-117) Total Bilirubin 1.4 MG/DL (0.2-1.0) Potassium Level 6.5 MEQ/L (3.5-5.1) 6.1 MEQ/L (3.5-5.1) Chloride Level 109 MEQ/L (98-107) Carbon Dioxide Level 19.9 MEQ/L (21.0-32.0) Estimat Glomerular Filtration Rate 25 ML/MIN (>89) Ammonia 243 MCMOL/L (11-32) Lipase 36 U/L (73-393) Prothrombin Time 14.7 SEC (9.8-11.6) Phosphorus Level 5.2 MG/DL (2.5-4.9) Magnesium Level 2.7 MG/DL (1.5-2.5) Thyroid Stimulating Hormone 3rd Gen 10.600 uIU/ML (0.358-3.740) Test 09/01/17 15:45 09/01/17 17:23 09/01/17 21:20 09/02/17 04:37 Potassium Level 5.9 MEQ/L (3.5-5.1) 5.6 MEQ/L (3.5-5.1) 6.3 MEQ/L (3.5-5.1) Free Triiodothyronine (T3) pg/dL 0.54 PG/ML (2.18-3.98) White Blood Count 26.2 TH/MM3 (4.0-11.0) Red Blood Count 2.81 MIL/MM3 (4.50-5.90) Hemoglobin 7.9 GM/DL (13.0-17.0) Hematocrit 24.2 % (39.0-51.0) Red Cell Distribution Width 18.4 % (11.6-17.2) Neutrophils (%) (Auto) 91.8 % (16.0-70.0) Lymphocytes (%) (Auto) 2.1 % (9.0-44.0) Neutrophils # (Auto) 24.0 TH/MM3 (1.8-7.7) Lymphocytes # (Auto) 0.5 TH/MM3 (1.0-4.8) Monocytes # (Auto) 1.6 TH/MM3 (0-0.9) Prothrombin Time 17.1 SEC (9.8-11.6) Blood Urea Nitrogen 46 MG/DL (7-18) Creatinine 3.63 MG/DL (0.60-1.30) Random Glucose 143 MG/DL (74-106) Total Protein 4.5 GM/DL (6.4-8.2) Albumin 1.5 GM/DL (3.4-5.0) Calcium Level 7.9 MG/DL (8.5-10.1) Phosphorus Level 6.3 MG/DL (2.5-4.9) Magnesium Level 2.6 MG/DL (1.5-2.5) Alkaline Phosphatase 273 U/L (45-117) Total Bilirubin 2.0 MG/DL (0.2-1.0) Chloride Level 112 MEQ/L (98-107) Carbon Dioxide Level 20.0 MEQ/L (21.0-32.0) Estimat Glomerular Filtration Rate 21 ML/MIN (>89) Lactic Acid Level 3.2 mmol/L (0.4-2.0) Ammonia 284 MCMOL/L (11-32) Test 09/02/17 06:45 09/02/17 07:19 09/02/17 09:53 09/02/17 10:30 Mycophenolic Acid Level <0.5 mcg/mL (1.0 - 3.5) Arterial Blood pH 7.50 (7.380-7.420) 7.44 (7.380-7.420) Arterial Blood Partial Pressure CO2 28 mmHg (38-42) 29 mmHg (38-42) Arterial Blood Oxygen Content 9.0 Vol % (12.0-20.0) 7.9 Vol % (12.0-20.0) Blood Gas Hemoglobin 6.9 G/DL (12.0-16.0) 6.4 G/DL (12.0-16.0) Blood Gas HCO3 19 mmol/L (22-26) Blood Gas Base Excess -4.1 mmol/L (-2-2) Blood Gas Oxygen Saturation 86 % (90-100) Arterial Blood Partial Pressure O2 59 mmHg (61-120) Blood Urea Nitrogen 45 MG/DL (7-18) Creatinine 3.59 MG/DL (0.60-1.30) Random Glucose 180 MG/DL (74-106) Total Protein 4.3 GM/DL (6.4-8.2) Albumin 1.8 GM/DL (3.4-5.0) Calcium Level 7.6 MG/DL (8.5-10.1) Alkaline Phosphatase 216 U/L (45-117) Total Bilirubin 1.8 MG/DL (0.2-1.0) Potassium Level 6.3 MEQ/L (3.5-5.1) Chloride Level 114 MEQ/L (98-107) Carbon Dioxide Level 19.9 MEQ/L (21.0-32.0) Estimat Glomerular Filtration Rate 21 ML/MIN (>89) Lactic Acid Level 4.7 mmol/L (0.4-2.0) Test 09/02/17 14:15 09/02/17 14:20 09/02/17 17:00 09/02/17 17:05 Blood Gas Base Excess -3.5 mmol/L (-2-2) Arterial Blood pH 7.31 (7.380-7.420) Arterial Blood Partial Pressure CO2 45 mmHg (38-42) Arterial Blood Partial Pressure O2 347 mmHg (61-120) Arterial Blood Oxygen Content 10.2 Vol % (12.0-20.0) Blood Gas Hemoglobin 6.8 G/DL (12.0-16.0) Lactic Acid Level 3.0 mmol/L (0.4-2.0) Blood Urea Nitrogen 45 MG/DL (7-18) Creatinine 3.70 MG/DL (0.60-1.30) Random Glucose 182 MG/DL (74-106) Total Protein 4.3 GM/DL (6.4-8.2) Albumin 1.7 GM/DL (3.4-5.0) Calcium Level 6.7 MG/DL (8.5-10.1) Alkaline Phosphatase 208 U/L (45-117) Total Bilirubin 1.7 MG/DL (0.2-1.0) Sodium Level 146 MEQ/L (136-145) Potassium Level 6.3 MEQ/L (3.5-5.1) Chloride Level 114 MEQ/L (98-107) Estimat Glomerular Filtration Rate 20 ML/MIN (>89) Protein Corrected Calcium 8.2 MG/DL (8.5-10.1) Ammonia 376 MCMOL/L (11-32) Test 09/02/17 20:40 09/02/17 22:58 09/03/17 01:35 09/03/17 05:40 Blood Gas HCO3 19 mmol/L (22-26) Blood Gas Base Excess -4.4 mmol/L (-2-2) Arterial Blood pH 7.48 (7.380-7.420) Arterial Blood Partial Pressure CO2 25 mmHg (38-42) Arterial Blood Oxygen Content 7.9 Vol % (12.0-20.0) Blood Gas Hemoglobin 5.7 G/DL (12.0-16.0) Blood Urea Nitrogen 45 MG/DL (7-18) 50 MG/DL (7-18) Creatinine 3.96 MG/DL (0.60-1.30) 4.06 MG/DL (0.60-1.30) Random Glucose 179 MG/DL (74-106) 235 MG/DL (74-106) Total Protein 4.8 GM/DL (6.4-8.2) 4.2 GM/DL (6.4-8.2) Calcium Level 7.1 MG/DL (8.5-10.1) 7.6 MG/DL (8.5-10.1) Sodium Level 147 MEQ/L (136-145) Potassium Level 5.9 MEQ/L (3.5-5.1) 5.5 MEQ/L (3.5-5.1) Chloride Level 113 MEQ/L (98-107) 110 MEQ/L (98-107) Estimat Glomerular Filtration Rate 19 ML/MIN (>89) 18 ML/MIN (>89) Protein Corrected Calcium 8.4 MG/DL (8.5-10.1) Red Blood Count 1.80 MIL/MM3 (4.50-5.90) Hemoglobin 5.1 GM/DL (13.0-17.0) Hematocrit 15.8 % (39.0-51.0) Red Cell Distribution Width 18.5 % (11.6-17.2) Platelet Count 64 TH/MM3 (150-450) Neutrophils (%) (Auto) 86.3 % (16.0-70.0) Lymphocytes (%) (Auto) 6.8 % (9.0-44.0) Lymphocytes # (Auto) 0.4 TH/MM3 (1.0-4.8) Band Neutrophils % 26 % (0-6) Lymphocytes % 7 % (9-44) Metamyelocytes 2 % (0-1) Dohle Bodies PRESENT (NONE SEEN) Platelet Estimate LOW (NORMAL) Polychromasia 2.4 % (0.0-1.9) Ovalocytes 1+ (NORMAL) Prothrombin Time 27.2 SEC (9.8-11.6) Activated Partial Thromboplast Time 37.1 SEC (24.3-30.1) Fibrinogen 182 mg/dL (227-377) Albumin 2.3 GM/DL (3.4-5.0) Phosphorus Level 6.4 MG/DL (2.5-4.9) Alkaline Phosphatase 169 U/L (45-117) Total Bilirubin 1.9 MG/DL (0.2-1.0) Carbon Dioxide Level 18.8 MEQ/L (21.0-32.0) Anion Gap 16 MEQ/L (5-15) Test 09/03/17 05:43 09/03/17 08:25 09/03/17 12:15 Lactic Acid Level 5.0 mmol/L (0.4-2.0) Red Blood Count 2.47 MIL/MM3 (4.50-5.90) 2.18 MIL/MM3 (4.50-5.90) Hemoglobin 7.2 GM/DL (13.0-17.0) 6.4 GM/DL (13.0-17.0) Hematocrit 21.4 % (39.0-51.0) 19.0 % (39.0-51.0) Platelet Count 50 TH/MM3 (150-450) 56 TH/MM3 (150-450) Neutrophils (%) (Auto) 83.7 % (16.0-70.0) Lymphocytes (%) (Auto) 8.0 % (9.0-44.0) Lymphocytes # (Auto) 0.4 TH/MM3 (1.0-4.8) Band Neutrophils % 34 % (0-6) Lymphocytes % 7 % (9-44) Nucleated Red Blood Cells 1 /100 WBC (0-0) Toxic Granulation 1+ (NORMAL) Platelet Estimate LOW (NORMAL) Ovalocytes 1+ (NORMAL) Prothrombin Time 21.1 SEC (9.8-11.6) Activated Partial Thromboplast Time 37.3 SEC (24.3-30.1) Blood Urea Nitrogen 47 MG/DL (7-18) Creatinine 4.24 MG/DL (0.60-1.30) Random Glucose 282 MG/DL (74-106) Total Protein 4.7 GM/DL (6.4-8.2) Albumin 2.7 GM/DL (3.4-5.0) Calcium Level 7.4 MG/DL (8.5-10.1) Alkaline Phosphatase 153 U/L (45-117) Total Bilirubin 2.7 MG/DL (0.2-1.0) Chloride Level 108 MEQ/L (98-107) Carbon Dioxide Level 18.7 MEQ/L (21.0-32.0) Anion Gap 17 MEQ/L (5-15) Estimat Glomerular Filtration Rate 17 ML/MIN (>89) Imaging Last Impressions Abdomen/Pelvis CT 09/01/17 0853 Signed Impressions: Service Date/Time: Friday, September 01, 2017 09:39 - CONCLUSION: 1. Obstructive gas pattern with marked dilatation of the stomach and small bowel. 2. Air and fecal appearing debris throughout the mid to distal small bowel. Distention may be due to impaction since an acute transition point is not identified. 3. Cirrhotic appearing liver with evidence of prior portal venous shunt. 4. Pancreatic calcifications. 5. Bilateral pleural effusions and bibasilar airspace disease. 6. Right-sided chest tube. Adin Peguero MD Hospital Course This is a 26-year-old male. Date of admission 09/01/2017. Past medical history includes cystic fibrosis, diabetes mellitus on insulin pump, end -stage liver disease on transplant list, portal hypertension with a history of TIPS, hepatic encephalopathy on rifaximin and lactulose chronically with a history of double lung lung transplant and history of ileostomy June 2016 at [facility] in [place]. He also has a history of a Pleurx catheter right-sided for chronic pleural effusion. Patient presents to [facility] with family with 12 hour history of acute increasing abdominal pain, distention, decreased ileostomy output. The patient was slightly confused last night, had multiple doses of lactulose, but continues to have poor ileostomy output. The patient has had multiple abdominal surgeries in the past including for intestinal atresia at in [place] and a recent ileostomy in June 2016 at [facility] in [place].. There are no current alleviating factors. No associated fever. The patient does have a history of chronic right pleural effusions, has a chronic Pleurx catheter drain ~ 1000 cc of the fluid this morning. Workup included baseline laboratories. White blood cell count within normal limits. Hemoglobin 7. Potassium was 6.5 which received D50/insulin and bicarbonate with recheck pending. Ammonia levels 243. Creatinine 3.1 which is above his baseline. Patient received normal saline infusion and a CT was performed of the abdomen/pelvis revealed gastric distention/fluid with appears to be fecal impaction versus obstruction in the small bowel with dilatation duodenum/jejunum. No transition zone. Collapsed colon distal. Right lower quadrant ileostomy site. Pancreatic calcification which are chronic with moderate bilateral pleural effusions. SUBJ 3/12: Patient is more critically ill, abdomen distended and more tender. Creat worse 3.08 to 3.67. Overnight UO approximately 350 ml. Lactic acid increased to 3.2, ammonia 284. WBC 26.2 today, check C Diff, start empiric Flagyl. Discussed with Dr. Dave. He will discuss with Dr. Regan re ileoscopy ?Irrigation. Also stat CT abd ordered. 09/03: Remains critical with guarded prognosis. Started on Levophed currently on 7 mcg a minute. Hemoglobin 5.9 getting one units of PRBC. Platelet count 51 INR is 2.7. Transfuse 1 unit of FFP 1 packed unit of platelets. Oliguric BUN is 50 creatinine 4 lactic acid elevated to 5. Awaiting transfer to [facility]. Right IJ Vas-Cath was placed and hemodialysis was started. On evening it was not the patient's pupils are unresponsive and no corneal reflex. Dr. Poe reevaluated the patient and noted that patient is breathing spontaneously otherwise no brainstem reflexes were present. A CT of the head was ordered which showed diffuse cerebral edema. This information was conveyed to the parents who then decided to withdraw life support to comfort measures only due to medical futility, and terminal prognosis. Patient at 2347 on 09/03/17 Delia Canchola MD Sep 04, 2017 07:19
== END 2017-09-03 23:47 | disposition expired | DRG 393 ==
LOC: NEPE 08:38 → NEDA 11:52 → N03A 15:31
PROVIDERS: ADMIT Internal Medicine Critical Care Medicine; ATTEND Internal Medicine Critical Care Medicine
PROC: 5A1945Z Respiratory Ventilation, 24-96 Consecutive Hours (ICD-10-PCS; 2017-09-02)
PROC: 0BH17EZ Insertion of Endotracheal Airway into Trachea, Via Natural or Artificial Opening (ICD-10-PCS; 2017-09-02)
PROC: 0DBB8ZX Excision of Ileum, Via Natural or Artificial Opening Endoscopic, Diagnostic (ICD-10-PCS; 2017-09-02)
PROC: 02H633Z Insertion of Infusion Device into Right Atrium, Percutaneous Approach (ICD-10-PCS; principal; 2017-09-03)
PROC: 5A1D70Z Performance of Urinary Filtration, Intermittent, Less than 6 Hours Per Day (ICD-10-PCS; 2017-09-03)
DX: K55.011 Focal (segmental) acute (reversible) ischemia of small intestine (principal); K72.00 Acute and subacute hepatic failure without coma; R65.21 Severe sepsis with septic shock; J96.01 Acute respiratory failure with hypoxia; G93.6 Cerebral edema; A41.9 Sepsis, unspecified organism; J90 Pleural effusion, not elsewhere classified; N17.9 Acute kidney failure, unspecified; N18.3 Chronic kidney disease, stage 3 (moderate); Q44.2 Atresia of bile ducts; D61.818 Other pancytopenia; D68.9 Coagulation defect, unspecified; Z94.2 Lung transplant status; E84.19 Cystic fibrosis with other intestinal manifestations; E84.8 Cystic fibrosis with other manifestations; K76.6 Portal hypertension; E87.2 Acidosis; E88.09 Other disorders of plasma-protein metabolism, not elsewhere classified; E87.5 Hyperkalemia; K86.81 Exocrine pancreatic insufficiency; E86.0 Dehydration; Z76.82 Awaiting organ transplant status; Z96.89 Presence of other specified functional implants; Z96.41 Presence of insulin pump (external) (internal); M81.0 Age-related osteoporosis without current pathological fracture; K74.69 Other cirrhosis of liver; E10.22 Type 1 diabetes mellitus with diabetic chronic kidney disease; E78.5 Hyperlipidemia, unspecified; M19.90 Unspecified osteoarthritis, unspecified site; K21.0 Gastro-esophageal reflux disease with esophagitis; I27.20 Pulmonary hypertension, unspecified; I12.9 Hypertensive chronic kidney disease with stage 1 through stage 4 chronic kidney disease, or unspecified chronic kidney disease; Z51.5 Encounter for palliative care; F33.42 Major depressive disorder, recurrent, in full remission; R60.0 Localized edema; R68.0 Hypothermia, not associated with low environmental temperature; Z93.2 Ileostomy status; Z79.52 Long term (current) use of systemic steroids; Z79.4 Long term (current) use of insulin
CPT/HCPCS: 36430; 36556; 36600; 70450; 71045; 74176; 76937; 80048; 80053; 80180; 80197; 82140; 82533; 82805; 82948; 83605; 83690; 83735; 84100; 84132; 84155; 84439; 84443; 84481; 85007; 85025; 85027; 85384; 85610; 85730; 86850; 86900; 86901; 86920; 86927; 87641; 88305; 90471; 90935; 94002; 94003; 94640; 94664; 96361; 96374; 96375; J1170; C9113; J0610; J0878; J1580; J1644; J1720; J1815; J1940; J2248; J2250; J2270; J2405; J2543; J7030; J7040; J7050; J7070; J7507; J7517; J7613; P9017; P9037; P9040; P9047